=== PATIENT | female | born 1945 | race African-American/Black ===

== ENCOUNTER 2022-03-29 20:53 | Inpatient (IN) | payer OTHER, MEDICAID ==
[2022-03-29 23:04] LABS: ALT (SGPT) 149 U/L (8-55); AST (SGOT) 214 U/L (5-34); Albumin 2.6 g/dL (3.4-4.8); Alkaline Phosphatase 43 U/L (40-110); BUN (Urea Nitrogen) 19 mg/dL (9.8-20.1); Bilirubin, Total 0.6 mg/dL (0.2-1.2); Calc. Creatinine Clearance 0 mL/min (70-130); Calcium 7.9 mg/dL (7.8-10.44); Globulin 3.4 g/dL (2.4-3.5); Glucose 137 mg/dL (83-110); Magnesium 2.1 mg/dL (1.6-2.6)
[2022-03-29 23:07] LABS: Hemoglobin 2.9 g/dL (12.0-15.5); Mean Corpuscular HGB CONC 28.4 g/dL (32.0-36.0); Mean Corpuscular Hemoglobin 24.2 pg (27.0-33.0); Mean Platelet Volume 10.3 fl (7.4-10.4); RBC Distribution Width 23.5 % (11.5-14.5); White Blood Cell (WBC) Count 4.6 10x3/uL (3.5-10.5)
[2022-03-29 23:10] LABS: Chloride 86 mmol/L (98-107); Potassium 1.8 mmol/L (3.5-5.1); Sodium 147 mmol/L (136-145)
[2022-03-29 23:11] LABS: Anion Gap 19 mmol/L (10-20)
[2022-03-29 23:16] LABS: Carbon Dioxide 46 mmol/L (23-31)
[2022-03-29 23:33] LABS: MDiff Complete? YES; Platelet Count 216 10x3/uL (150-450)
[2022-03-29 23:38] LABS: Lymphocytes 12 % (21-51); Monocytes 2 % (0-10); Neutrophil 86 % (42-75)
[2022-03-29 23:39] LABS: Reflex for Review?? YES
[2022-03-29 23:40] LABS: Anisocytosis SLIGHT = 6-15 cells (100X) (0-5/hpf); Hypochromia MODERATE=16-30 cells (100X) (0-5/hpf); Platelet Morphology Comment Appears Adequate; Rouleaux Formation MODERATE= 6-15 cells (100X) (None Seen)
[2022-03-30 00:05] LABS: Iron 16 ug/dL (50-170); Iron Binding Capacity, Total 269 mcg/dL (265-497)
[2022-03-30] MEDS ORDERED: Potassium Chloride 20 MEQ TAB ONE (00:09)
[2022-03-30] MEDS ORDERED: NS 0.9% w/ 40 MEQ KCL 1,000 ML IV ONE (00:09)
[2022-03-30 00:37] LABS: SARS-CoV-2 NAA Rapid Test Not Detected (NotDetected)
[2022-03-30 01:29] LABS: BUN (Urea Nitrogen) 19 mg/dL (9.8-20.1); Calc. Creatinine Clearance 0 mL/min (70-130); Calcium 7.6 mg/dL (7.8-10.44); Glucose 119 mg/dL (83-110); Iron 16 ug/dL (50-170)
[2022-03-30 01:36] LABS: Anion Gap 17 mmol/L (10-20); Chloride 87 mmol/L (98-107); Sodium 148 mmol/L (136-145)
[2022-03-30 01:42] LABS: Carbon Dioxide Greater than 37 mmol/L (23-31); Potassium 1.9 mmol/L (3.5-5.1)
[2022-03-30 02:14] LABS: Troponin I 0.206 ng/mL (< 0.028)
[2022-03-30] MEDS: Potassium Chloride 20 MEQ in Premix Bag 1 BAG IVPB SCH ×3 (03:27→08:38)
[2022-03-30] MEDS: Budesonide 0.5 MG/2 ML NEB NEB SCH ×2 (07:53→18:44)
[2022-03-30 08:30] LABS: ALV-art Gradient -40.435 mmHg (0-20); Actual Bicarbonate (HCO3a) 48.7 mEq/L (22-28); Base Excess (BEa) 23.7 mEq/L (-2.0 to +3.0); CO2 Tension 60.3 mmHg (35.0-45.0); Calcium, Ionized (arterial) 0.95 mmol/L (1.12-1.30); Carboxyhemoglobin (COHb) 1.5 gm% (0.0-3.0); Hemoglobin (Hb) 6.2 g/dL (12.0-16.0); O2 Tension (PaO2), arterial 164.7 mmHg (> 70.0); Potassium - ABG Lab 2.5 mmol/L (3.70-5.30); Puncture Site RRA; pH, Arterial 7.53 (7.35-7.45)
[2022-03-30] MEDS: Pantoprazole 40 MG VIAL IVP SCH (08:37)
[2022-03-30 13:26] LABS: #Monocytes 0.2 10x3/uL (0.0-1.1); #Neutrophils 4.8 10x3/uL (1.5-8.4); %Basophils 0.2 % (0.0-2.0); %Eosinophils 0.3 % (0.0-6.0); %Lymphocytes 16.1 % (18.0-47.0); %Monocytes 3.6 % (0.0-10.0); %Neutrophils 79.3 % (40.0-75.0); Hemoglobin 10.3 g/dL (12.0-15.5); Mean Corpuscular HGB CONC 32.8 g/dL (32.0-36.0); Mean Corpuscular Hemoglobin 28.6 pg (27.0-33.0); Mean Corpuscular Volume 87.2 fl (81.6-98.3); Mean Platelet Volume 10.3 fl (7.4-10.4); Platelet Count 164 10x3/uL (150-450); RBC Distribution Width 16.3 % (11.5-14.5)
[2022-03-30 13:32] LABS: BUN (Urea Nitrogen) 20 mg/dL (9.8-20.1); Calc. Creatinine Clearance 31 mL/min (70-130); Calcium 7.7 mg/dL (7.8-10.44); Carbon Dioxide Greater than 37 mmol/L (23-31); Chloride 91 mmol/L (98-107); Glucose 173 mg/dL (83-110); Potassium 3.1 mmol/L (3.5-5.1); Sodium 143 mmol/L (136-145)
[2022-03-30 13:41] LABS: Anion Gap 20 mmol/L (10-20)
[2022-03-30] MEDS: Thiamine HCl 200 MG/2 ML VIAL IVPB SCH (17:40)
[2022-03-30] MEDS: Bisacodyl 10 MG SUPP PR SCH (17:40)
[2022-03-30] MEDS: Multivitamins, Adult 10 ML, Folic Acid 1 MG in Dextrose 5 %-0.45 % NaCl 1,000 ML IV SCH (17:40)
[2022-03-30] MEDS: Atorvastatin Calcium 10 MG TAB PO SCH (20:16)
[2022-03-30] MEDS: Fleet Enema 133 ML BOT PR SCH (20:16)
[2022-03-31] MEDS: Fleet Enema 133 ML BOT PR SCH ×3 (02:42→16:17)
[2022-03-31] MEDS: Bisacodyl 10 MG SUPP PR SCH ×3 (02:42→16:17)
[2022-03-31 04:50] LABS: #Monocytes 0.2 10x3/uL (0.0-1.1); #Neutrophils 3.7 10x3/uL (1.5-8.4); %Eosinophils 0.6 % (0.0-6.0); %Lymphocytes 21.6 % (18.0-47.0); %Monocytes 4.1 % (0.0-10.0); %Neutrophils 73.1 % (40.0-75.0); Mean Corpuscular HGB CONC 32.1 g/dL (32.0-36.0); Mean Corpuscular Hemoglobin 28.9 pg (27.0-33.0); Mean Platelet Volume 10.3 fl (7.4-10.4); Platelet Count 142 10x3/uL (150-450); RBC Distribution Width 16.7 % (11.5-14.5); Red Blood Cell (RBC) Count 3.11 10x6/uL (3.90-5.03); White Blood Cell (WBC) Count 5.1 10x3/uL (3.5-10.5)
[2022-03-31 05:03] LABS: BUN (Urea Nitrogen) 22 mg/dL (9.8-20.1); Calc. Creatinine Clearance 35 mL/min (70-130); Calcium 7.6 mg/dL (7.8-10.44); Glucose 98 mg/dL (83-110); Magnesium 1.8 mg/dL (1.6-2.6)
[2022-03-31 05:05] LABS: Troponin I 0.084 ng/mL (< 0.028)
[2022-03-31 05:07] LABS: Chloride 92 mmol/L (98-107); Potassium 3.1 mmol/L (3.5-5.1); Sodium 145 mmol/L (136-145)
[2022-03-31 05:10] LABS: Anion Gap 19 mmol/L (10-20); Carbon Dioxide 38 mmol/L (23-31)
[2022-03-31] MEDS ORDERED: Potassium Chloride 20 MEQ TAB PO SCH (06:00)
[2022-03-31] MEDS: Budesonide 0.5 MG/2 ML NEB NEB SCH ×2 (07:28→19:00)
[2022-03-31] MEDS: Pantoprazole 40 MG VIAL IVP SCH (08:48)
[2022-03-31] MEDS: Thiamine HCl 200 MG/2 ML VIAL IVPB SCH (16:19)
[2022-03-31] MEDS ORDERED: Lorazepam 2 MG/ML VIAL SLOW IVP SCH (17:15)
[2022-03-31] MEDS: Multivitamins, Adult 10 ML, Folic Acid 1 MG in Dextrose 5 %-0.45 % NaCl 1,000 ML IV SCH (17:21)
[2022-03-31] MEDS: Atorvastatin Calcium 10 MG TAB PO SCH (21:59)
[2022-04-01] MEDS: Fleet Enema 133 ML BOT PR SCH ×4 (01:00→16:53)
[2022-04-01] MEDS: Bisacodyl 10 MG SUPP PR SCH ×4 (01:00→16:24)
[2022-04-01 06:54] LABS: #Monocytes 0.4 10x3/uL (0.0-1.1); #Neutrophils 5.6 10x3/uL (1.5-8.4); %Basophils 0.3 % (0.0-2.0); %Eosinophils 0.3 % (0.0-6.0); %Lymphocytes 15.1 % (18.0-47.0); %Monocytes 5.7 % (0.0-10.0); %Neutrophils 78.3 % (40.0-75.0); Hemoglobin 11.5 g/dL (12.0-15.5); Mean Corpuscular HGB CONC 31.3 g/dL (32.0-36.0); Mean Corpuscular Hemoglobin 28.7 pg (27.0-33.0); Mean Corpuscular Volume 91.8 fl (81.6-98.3); Mean Platelet Volume 10.5 fl (7.4-10.4); Platelet Count 148 10x3/uL (150-450); RBC Distribution Width 16.7 % (11.5-14.5); Red Blood Cell (RBC) Count 4.01 10x6/uL (3.90-5.03); White Blood Cell (WBC) Count 7.2 10x3/uL (3.5-10.5)
[2022-04-01 07:20] LABS: Anion Gap 19 mmol/L (10-20); BUN (Urea Nitrogen) 18 mg/dL (9.8-20.1); Calc. Creatinine Clearance 51 mL/min (70-130); Calcium 7.9 mg/dL (7.8-10.44); Carbon Dioxide 31 mmol/L (23-31); Chloride 93 mmol/L (98-107); Glucose 77 mg/dL (83-110); Sodium 139 mmol/L (136-145)
[2022-04-01 07:24] LABS: Potassium 4.1 mmol/L (3.5-5.1)
[2022-04-01] MEDS: Budesonide 0.5 MG/2 ML NEB NEB SCH ×2 (07:26→19:17)
[2022-04-01] MEDS: Pantoprazole 40 MG VIAL IVP SCH (08:14)
[2022-04-01] MEDS ORDERED: Mineral Oil ENEMA PR SCH (10:30)
[2022-04-01] MEDS: Thiamine HCl 200 MG/2 ML VIAL IVPB SCH (16:23)
[2022-04-01] MEDS: Atorvastatin Calcium 10 MG TAB PO SCH (20:24)
[2022-04-02] MEDS: Fleet Enema 133 ML BOT PR SCH ×3 (02:31→17:04)
[2022-04-02] MEDS: Bisacodyl 10 MG SUPP PR SCH ×3 (02:31→16:15)
[2022-04-02] MEDS ORDERED: Acetaminophen 325 MG TAB PO SCH (03:00)
[2022-04-02 04:52] LABS: Hemoglobin 10.5 g/dL (12.0-15.5); Mean Corpuscular Hemoglobin 28.9 pg (27.0-33.0); Mean Corpuscular Volume 90.4 fl (81.6-98.3); Mean Platelet Volume 10.3 fl (7.4-10.4); Platelet Count 141 10x3/uL (150-450); Red Blood Cell (RBC) Count 3.63 10x6/uL (3.90-5.03); White Blood Cell (WBC) Count 6.2 10x3/uL (3.5-10.5)
[2022-04-02 05:05] LABS: MDiff Complete? YES
[2022-04-02 05:23] LABS: Lymphocytes 16 % (21-51); Monocytes 5 % (0-10); Neutrophil 79 % (42-75)
[2022-04-02 05:27] LABS: Anisocytosis SLIGHT = 6-15 cells (100X) (0-5/hpf); Platelet Morphology Comment Appears Adequate
[2022-04-02 05:36] LABS: Anion Gap 16 mmol/L (10-20); BUN (Urea Nitrogen) 17 mg/dL (9.8-20.1); Calc. Creatinine Clearance 58 mL/min (70-130); Calcium 8.2 mg/dL (7.8-10.44); Carbon Dioxide 37 mmol/L (23-31); Chloride 93 mmol/L (98-107); Glucose 89 mg/dL (83-110); Sodium 143 mmol/L (136-145)
[2022-04-02] MEDS ORDERED: Potassium Chloride 20 MEQ TAB PO SCH (05:45)
[2022-04-02] MEDS: Budesonide 0.5 MG/2 ML NEB NEB SCH ×2 (06:49→19:00)
[2022-04-02] MEDS: Polyethylene Glycol 3350 17 GM Packet PO SCH (08:14)
[2022-04-02] MEDS: Pantoprazole 40 MG VIAL IVP SCH (08:14)
[2022-04-02] MEDS: Thiamine HCl 200 MG/2 ML VIAL IVPB SCH (16:15)
[2022-04-02] MEDS ORDERED: Lorazepam 2 MG/ML VIAL SLOW IVP SCH (17:30)
[2022-04-02] MEDS: Atorvastatin Calcium 10 MG TAB PO SCH (20:10)
[2022-04-03] MEDS: Bisacodyl 10 MG SUPP PR SCH ×2 (00:34→08:42)
[2022-04-03] MEDS: Fleet Enema 133 ML BOT PR SCH ×2 (00:34→09:15)
[2022-04-03 05:26] LABS: Anion Gap 22 mmol/L (10-20); BUN (Urea Nitrogen) 14 mg/dL (9.8-20.1); Calc. Creatinine Clearance 68 mL/min (70-130); Calcium 8.2 mg/dL (7.8-10.44); Carbon Dioxide 33 mmol/L (23-31); Chloride 94 mmol/L (98-107); Glucose 108 mg/dL (83-110); Potassium 3.8 mmol/L (3.5-5.1); Sodium 145 mmol/L (136-145)
[2022-04-03 05:39] VITALS: BMI 19.5
[2022-04-03 05:43] LABS: Hemoglobin 10.8 g/dL (12.0-15.5); Mean Corpuscular HGB CONC 32.6 g/dL (32.0-36.0); Mean Corpuscular Hemoglobin 28.6 pg (27.0-33.0); Mean Corpuscular Volume 87.8 fl (81.6-98.3); Mean Platelet Volume 10.1 fl (7.4-10.4); Platelet Count 151 10x3/uL (150-450); Red Blood Cell (RBC) Count 3.77 10x6/uL (3.90-5.03); White Blood Cell (WBC) Count 7.6 10x3/uL (3.5-10.5)
[2022-04-03 06:34] LABS: MDiff Complete? YES; Manual Diff?? YES
[2022-04-03 06:39] LABS: Band 4 % (5-11); Lymphocytes 11 % (21-51); Monocytes 7 % (0-10); Neutrophil 77 % (42-75); Reactive Lymphocytes 1 % (0-10)
[2022-04-03 06:41] LABS: Anisocytosis SLIGHT = 6-15 cells (100X) (0-5/hpf); Hypochromia SLIGHT = 6-15 cells (100X) (0-5/hpf); Macrocytosis SLIGHT = 6-15 cells (100X) (0-5/hpf); Microcytosis SLIGHT = 6-15 cells (100X) (0-5/hpf); Polychromasia SLIGHT = 2-3 cells (100X) (0-2/hpf); Target Cells SLIGHT = 2-5 cells (100X) (0-1/hpf)
[2022-04-03] MEDS: Budesonide 0.5 MG/2 ML NEB NEB SCH ×2 (08:38→19:00)
[2022-04-03] MEDS: Pantoprazole 40 MG VIAL IVP SCH (08:43)
[2022-04-03] MEDS: Polyethylene Glycol 3350 17 GM Packet PO SCH (08:43)
[2022-04-03] MEDS: Atorvastatin Calcium 10 MG TAB PO SCH (20:21)
[2022-04-04 05:59] LABS: Hemoglobin 10.8 g/dL (12.0-15.5); Mean Corpuscular HGB CONC 31.6 g/dL (32.0-36.0); Mean Corpuscular Hemoglobin 28.7 pg (27.0-33.0); Mean Platelet Volume 10.2 fl (7.4-10.4); Platelet Count 142 10x3/uL (150-450); RBC Distribution Width 18.4 % (11.5-14.5); Red Blood Cell (RBC) Count 3.76 10x6/uL (3.90-5.03); White Blood Cell (WBC) Count 6.5 10x3/uL (3.5-10.5)
[2022-04-04 06:05] LABS: Anion Gap 18 mmol/L (10-20); BUN (Urea Nitrogen) 11 mg/dL (9.8-20.1); Calc. Creatinine Clearance 69 mL/min (70-130); Calcium 8.4 mg/dL (7.8-10.44); Carbon Dioxide 33 mmol/L (23-31); Chloride 96 mmol/L (98-107); Glucose 99 mg/dL (83-110); Potassium 3.6 mmol/L (3.5-5.1); Sodium 143 mmol/L (136-145)
[2022-04-04 06:12] LABS: MDiff Complete? YES; Manual Diff?? YES
[2022-04-04 06:29] LABS: Anisocytosis SLIGHT = 6-15 cells (100X) (0-5/hpf); Band 2 % (5-11); Lymphocytes 17 % (21-51); Neutrophil 80 % (42-75); Platelet Morphology Comment Appears Adequate; Reactive Lymphocytes 1 % (0-10)
[2022-04-04 06:30] LABS: Hypochromia SLIGHT = 6-15 cells (100X) (0-5/hpf); Macrocytosis SLIGHT = 6-15 cells (100X) (0-5/hpf); Microcytosis SLIGHT = 6-15 cells (100X) (0-5/hpf); Polychromasia SLIGHT = 2-3 cells (100X) (0-2/hpf)
[2022-04-04] MEDS: Budesonide 0.5 MG/2 ML NEB NEB SCH (07:18)
[2022-04-04] MEDS: Polyethylene Glycol 3350 17 GM Packet PO SCH (07:49)
[2022-04-04 11:52] VITALS: TEMP 98.5
[2022-04-04 16:21] VITALS: BP 129/67
== END 2022-04-04 16:53 | DRG 811 ==
LOC: CSHERS 20:53 → CSHIMCU 03-30 02:11 → CSHTELE 04-03 13:14
PROVIDERS: ADMIT Family Medicine; ATTEND Internal Medicine
PROC: 30233N1 Transfusion of Nonautologous Red Blood Cells into Peripheral Vein, Percutaneous Approach (ICD-10-PCS; principal; 2022-03-30)
DX: D50.9 Iron deficiency anemia, unspecified (principal); G93.41 Metabolic encephalopathy; E44.0 Moderate protein-calorie malnutrition; Z68.1 Body mass index [BMI] 19.9 or less, adult; E87.6 Hypokalemia; J44.9 Chronic obstructive pulmonary disease, unspecified; F17.200 Nicotine dependence, unspecified, uncomplicated; I10 Essential (primary) hypertension; F03.90 Unspecified dementia, unspecified severity, without behavioral disturbance, psychotic disturbance, mood disturbance, and anxiety; E78.5 Hyperlipidemia, unspecified; B88.8 Other specified infestations; R74.8 Abnormal levels of other serum enzymes; K56.41 Fecal impaction; E86.0 Dehydration; Z88.5 Allergy status to narcotic agent; Z79.899 Other long term (current) drug therapy
CPT/HCPCS: 36415; 36416; 36430; 36600; 71045; 74018; 76705; 80048; 80053; 82140; 82274; 82550; 82553; 82607; 82728; 82746; 82805; 83540; 83550; 83735; 83880; 84443; 84484; 85025; 85060; 86850; 86900; 86901; 93005; C9113; J2060; J3411; J3480; J7042; J7620; J7626; P9016; U0002

== ENCOUNTER 2022-04-22 18:21 | Emergency (ER) | payer OTHER, MEDICAID ==
[2022-04-22] MEDS ORDERED: niCARdipine 25 MG/10 ML VIAL ONE (19:22)
[2022-04-22 20:10] LABS: Hemoglobin 11.5 g/dL (12.0-15.5); Mean Corpuscular HGB CONC 29.9 g/dL (32.0-36.0); Mean Corpuscular Hemoglobin 29.3 pg (27.0-33.0); Mean Corpuscular Volume 98.2 fl (81.6-98.3); Mean Platelet Volume 9.1 fl (7.4-10.4); Platelet Count 319 10x3/uL (150-450); RBC Distribution Width 19.5 % (11.5-14.5); Red Blood Cell (RBC) Count 3.92 10x6/uL (3.90-5.03); White Blood Cell (WBC) Count 5.9 10x3/uL (3.5-10.5)
[2022-04-22 20:18] LABS: ALT (SGPT) 23 U/L (8-55); AST (SGOT) 25 U/L (5-34); Albumin 3.6 g/dL (3.4-4.8); Alkaline Phosphatase 67 U/L (40-110); Anion Gap 17 mmol/L (10-20); BUN (Urea Nitrogen) 14 mg/dL (9.8-20.1); Bilirubin, Total 0.5 mg/dL (0.2-1.2); Calc. Creatinine Clearance 0 mL/min (70-130); Calcium 9.6 mg/dL (7.8-10.44); Carbon Dioxide 35 mmol/L (23-31); Chloride 92 mmol/L (98-107); Globulin 5.9 g/dL (2.4-3.5); Glucose 136 mg/dL (83-110); Potassium 3.8 mmol/L (3.5-5.1); Protein, Total 9.5 g/dL (5.8-8.1); Sodium 140 mmol/L (136-145)
[2022-04-22 20:26] LABS: SARS-CoV-2 NAA Rapid Test Not Detected (NotDetected)
[2022-04-22 20:29] LABS: MDiff Complete? YES
[2022-04-22 20:29] LABS: Bilirubin Neg (Negative); Blood, Urine 50 (Negative); Clarity Clear (Clear); Glucose, Urine (Dipstick) 100 mg/dL (Negative); Ketone, Urine Negative (Negative); Leukocyte Negative (Negative); Nitrite Negative (Negative); Protein, Urine (Dipstick) 500 mg/dl (Neg-Trace); Specific Gravity, Urine 1.015 (1.002-1.036); Urobilinogen Normal mg/dL (Less than 2)
[2022-04-22 20:34] LABS: Band 37 % (5-11); Lymphocytes 8 % (21-51); Metamyelocyte 2 % (0-0); Monocytes 10 % (0-10); Neutrophil 43 % (42-75)
[2022-04-22 20:35] LABS: Hypochromia SLIGHT = 6-15 cells (100X) (0-5/hpf); Large Platelets SLIGHT; Platelet Morphology Comment Appears Adequate; Vacuoles SLIGHT
[2022-04-22 20:45] LABS: Bacteria/HPF 2+ HPF (None Seen); Mucous/LPF 1+ LPF (<2+); RBC/HPF 0-3 HPF (0-3); Squamous Epithelial 0-3 HPF (0-3); WBC/HPF 0-3 HPF (0-3)
[2022-04-22 21:01] LABS: Base Excess (BEa) 7.8 mEq/L (-2.0 to +3.0); CO2 Tension 115.2 mmHg (35.0-45.0); Calcium, Ionized (arterial) 1.21 mmol/L (1.12-1.30); Carboxyhemoglobin (COHb) 1.2 gm% (0.0-3.0); Critical Notified By: CP.PH; Hemoglobin (Hb) 11.7 g/dL (12.0-16.0); O2 Tension (PaO2), arterial 173.1 mmHg (> 70.0); Potassium - ABG Lab 3.7 mmol/L (3.70-5.30); Puncture Site RRA; RapidComm Collect By CP.PH; pH, Arterial 7.16 (7.35-7.45)
[2022-04-22] MEDS ORDERED: Lorazepam 2 MG/ML VIAL ONE (23:18)
== END 2022-04-22 23:41 ==
LOC: CSHERS 18:21
DX: R09.02 Hypoxemia (principal); I10 Essential (primary) hypertension; R06.89 Other abnormalities of breathing; R41.82 Altered mental status, unspecified; Z20.822 Contact with and (suspected) exposure to COVID-19; Z79.899 Other long term (current) drug therapy
CPT/HCPCS: 36600; 51701; 70450; 71045; 80053; 82805; 82962; 83605; 83880; 84484; 85025; 86850; 86900; 86901; 87040; 87086; 93005; 96365; 96366; 96375; 99285; U0002; 36415; 36416; 81003; 81015; J2060

== ENCOUNTER 2022-06-16 15:48 | Inpatient (IN) | payer OTHER, MEDICAID ==
[~2022-06-16 15:48] MED LIST: Rocuronium Bromide 10 MG/ML (10ML VIAL) ONE
[2022-06-16] MEDS ORDERED: Cefepime 1 GM VIAL ONE (16:11)
[2022-06-16] MEDS ORDERED: Ondansetron PF 4 MG/2 ML Vial ONE (16:11)
[2022-06-16 16:23] LABS: Actual Bicarbonate (HCO3a) 35.6 mEq/L (22-28); Base Excess (BEa) 3.6 mEq/L (-2.0 to +3.0); CO2 Tension 112.1 mmHg (35.0-45.0); Calcium, Ionized (arterial) 1.16 mmol/L (1.12-1.30); Carboxyhemoglobin (COHb) 0.3 gm% (0.0-3.0); Hemoglobin (Hb) 10.9 g/dL (12.0-16.0); O2 Tension (PaO2), arterial 135.2 mmHg (> 70.0); Potassium - ABG Lab 2.7 mmol/L (3.70-5.30); Puncture Site LRA; pH, Arterial 7.12 (7.35-7.45)
[2022-06-16 16:27] LABS: ALV-art Gradient 295.075 mmHg (0-20)
[2022-06-16] MEDS ORDERED: Propofol 1,000 MG/100 ML VIAL IV ONE (16:33)
[2022-06-16] MEDS ORDERED: Midazolam HCl 2 mg/2 ml Vial ONE (16:34)
[2022-06-16 16:37] LABS: ALT (SGPT) 7 U/L (8-55); AST (SGOT) 15 U/L (5-34); Albumin 3.2 g/dL (3.4-4.8); Alkaline Phosphatase 60 U/L (40-110); Anion Gap 19 mmol/L (10-20); BUN (Urea Nitrogen) 11 mg/dL (9.8-20.1); Bilirubin, Total 0.5 mg/dL (0.2-1.2); Calc. Creatinine Clearance 0 mL/min (70-130); Calcium 9.6 mg/dL (7.8-10.44); Carbon Dioxide 35 mmol/L (23-31); Chloride 95 mmol/L (98-107); Estimated GFR 86; Globulin 5.1 g/dL (2.4-3.5); Glucose 199 mg/dL (83-110); Protein, Total 8.3 g/dL (5.8-8.1); Sodium 146 mmol/L (136-145)
[2022-06-16 16:42] LABS: Lipase Less than 4 U/L (8-78); Potassium 2.9 mmol/L (3.5-5.1)
[2022-06-16 16:46] LABS: MDiff Complete? YES; Mean Corpuscular HGB CONC 30.2 g/dL (32.0-36.0); Mean Corpuscular Hemoglobin 31.5 pg (27.0-33.0); Mean Corpuscular Volume 104.3 fl (81.6-98.3); Mean Platelet Volume 10.1 fl (7.4-10.4); Platelet Count 329 10x3/uL (150-450); RBC Distribution Width 15.2 % (11.5-14.5); Red Blood Cell (RBC) Count 3.49 10x6/uL (3.90-5.03); White Blood Cell (WBC) Count 8.9 10x3/uL (3.5-10.5)
[2022-06-16] MEDS ORDERED: Norepinephrine 8 MG/0.9% NS 0 ML ONE (16:46)
[2022-06-16 16:49] LABS: Band 68 % (5-11); Lymphocytes 13 % (21-51); Monocytes 5 % (0-10); Neutrophil 11 % (42-75); Reactive Lymphocytes 3 % (0-10)
[2022-06-16 16:51] LABS: Toxic Granulation MODERATE; Vacuoles MODERATE
[2022-06-16 16:58] LABS: Anisocytosis SLIGHT = 6-15 cells (100X) (0-5/hpf); Basophilic Stippling SLIGHT = 1-2 cells (100X) (None Seen); Macrocytosis SLIGHT = 6-15 cells (100X) (0-5/hpf)
[2022-06-16 16:59] LABS: Platelet Morphology Comment Appears Adequate
[2022-06-16 17:00] LABS: Reflex for Review?? YES
[2022-06-16 17:24] LABS: SARS-CoV-2 NAA Rapid Test DETECTED (NotDetected)
[2022-06-16] MEDS ORDERED: Potassium Chloride 20 MEQ/100 ML PREMIX BAG ONE (17:42)
[2022-06-16 17:57] LABS: Bilirubin Neg (Negative); Blood, Urine 50 (Negative); Clarity Clear (Clear); Glucose, Urine (Dipstick) 50 mg/dL (Negative); Ketone, Urine Negative (Negative); Leukocyte Negative (Negative); Nitrite Negative (Negative); Protein, Urine (Dipstick) 500 mg/dl (Neg-Trace); Specific Gravity, Urine 1.015 (1.002-1.036); Urobilinogen Normal mg/dL (Less than 2)
[2022-06-16] MEDS ORDERED: Bisacodyl 5 MG TAB PO PRN (18:02)
[2022-06-16] MEDS ORDERED: HYDROcodone/Acetaminophen 5/325 mg Tablet PO PRN (18:02)
[2022-06-16] MEDS ORDERED: Ondansetron PF 4 MG/2 ML Vial IVP PRN (18:02)
[2022-06-16] MEDS ORDERED: Sodium Chloride 0.9% 1,000 ML IV SCH (18:15)
[2022-06-16 18:20] LABS: Squamous Epithelial None Seen HPF (0-3); Transitional Epithelial 0-3 HPF (None Seen); WBC/HPF 0-3 HPF (0-3)
[2022-06-16 18:21] LABS: Bacteria/HPF 1+ HPF (None Seen); Calcium Oxalate Crystals Rare HPF (None Seen)
[2022-06-16] MEDS ORDERED: NOREPINEPHRINE 8 MG/250 ML-D5W 250 ML IVPB PRN (18:28)
[2022-06-16] MEDS ORDERED: fentaNYL Citrate-0.9 % NaCl/PF 100 ML IVPB ONE (18:28)
[2022-06-16] MEDS ORDERED: Furosemide 40 MG/4 ML VIAL SLOW IVP SCH (18:30)
[2022-06-16] MEDS ORDERED: Magnesium 2 GM/50 ML(in water) 2 GM in Premix Bag 1 BAG IVPB SCH (18:30)
[2022-06-16] MEDS ORDERED: Electrolyte Replacement Protocol FS PRN (18:30)
[2022-06-16] MEDS ORDERED: Ventilator Sedation Protocol 1 EACH FS PRN (18:30)
[2022-06-16] MEDS ORDERED: Lorazepam 2 MG/ML VIAL SLOW IVP PRN (18:45)
[2022-06-16] MEDS ORDERED: Morphine 2 MG/ML VIAL SLOW IVP PRN (18:45)
[2022-06-16] MEDS ORDERED: Fentanyl BOLUS 250 ML IVPB PRN (18:45)
[2022-06-16] MEDS ORDERED: DISCONTINUE PREVIOUS NARCOTIC PAIN MEDICATIONS AND BENZODIAZEPINES FS SCH (18:45)
[2022-06-16] MEDS ORDERED: Propofol BOLUS 1,000 MG/100 ML VIAL IV PRN (18:45)
[2022-06-16] MEDS ORDERED: Magnesium 2 GM/50 ML BAG (IN WATER) ONE (19:23)
[2022-06-16 20:09] LABS: Lactic Acid 2.9 mmol/L (0.5-2.2)
[2022-06-16] MEDS: Famotidine/PF 20 mg/2ml Vial SLOW IVP SCH (20:42)
[2022-06-16] MEDS ORDERED: Vancomycin 1 GM in Premix Bag 1 BAG IVPB SCH (21:00)
[2022-06-16 21:30] LABS: Actual Bicarbonate (HCO3a) 28.6 mEq/L (22-28); Base Excess (BEa) 4.9 mEq/L (-2.0 to +3.0); CO2 Tension 38.6 mmHg (35.0-45.0); Calcium, Ionized (arterial) 1.16 mmol/L (1.12-1.30); Carboxyhemoglobin (COHb) 0.3 gm% (0.0-3.0); Hemoglobin (Hb) 10.2 g/dL (12.0-16.0); O2 Tension (PaO2), arterial 63.1 mmHg (> 70.0); Potassium - ABG Lab 3.9 mmol/L (3.70-5.30); Puncture Site RRA; pH, Arterial 7.49 (7.35-7.45)
[2022-06-16] MEDS: Norepinephrine 8 MG/0.9% NS 250 ML ONE (21:30)
[2022-06-16] MEDS: Hydrocortisone Sod Succ/PF 100 mg/2 ml Vial IVP SCH (21:48)
[2022-06-16 22:39] LABS: Anion Gap 18 mmol/L (10-20); BUN (Urea Nitrogen) 14 mg/dL (9.8-20.1); Calc. Creatinine Clearance 40 mL/min (70-130); Carbon Dioxide 30 mmol/L (23-31); Chloride 100 mmol/L (98-107); Estimated GFR 91; Glucose 120 mg/dL (83-110); Magnesium 2.6 mg/dL (1.6-2.6); Potassium 3.8 mmol/L (3.5-5.1); Sodium 144 mmol/L (136-145)
[2022-06-16] MEDS ORDERED: Albumin 25% 25 GM/100 ML BOT IVPB SCH (23:30)
[2022-06-16] MEDS: Acetaminophen 325 MG TAB PO PRN (23:35)
[2022-06-17] MEDS ORDERED: NOREPINEPHRINE 8 MG/250 ML ONE (01:05)
[2022-06-17] MEDS ORDERED: DEXTROSE ONE (01:05)
[2022-06-17 04:03] LABS: Actual Bicarbonate (HCO3a) 31.1 mEq/L (22-28); Base Excess (BEa) 8.2 mEq/L (-2.0 to +3.0); CO2 Tension 36.1 mmHg (35.0-45.0); Calcium, Ionized (arterial) 1.12 mmol/L (1.12-1.30); Carboxyhemoglobin (COHb) 0.3 gm% (0.0-3.0); Hemoglobin (Hb) 8.4 g/dL (12.0-16.0); O2 Tension (PaO2), arterial 140.5 mmHg (> 70.0); Potassium - ABG Lab 2.9 mmol/L (3.70-5.30); Puncture Site RRA; pH, Arterial 7.55 (7.35-7.45)
[2022-06-17 04:06] LABS: ALV-art Gradient 170.875 mmHg (0-20)
[2022-06-17 04:22] LABS: Lactic Acid 1.7 mmol/L (0.5-2.2)
[2022-06-17 04:27] LABS: Anion Gap 15 mmol/L (10-20); BUN (Urea Nitrogen) 18 mg/dL (9.8-20.1); Calc. Creatinine Clearance 32 mL/min (70-130); Calcium 9.4 mg/dL (7.8-10.44); Carbon Dioxide 35 mmol/L (23-31); Chloride 99 mmol/L (98-107); Estimated GFR 76; Glucose 133 mg/dL (83-110); Magnesium 2.2 mg/dL (1.6-2.6); Sodium 146 mmol/L (136-145)
[2022-06-17] MEDS: Cefepime 1 GM in Sodium Chloride 0.9% 100 ML IVPB SCH ×2 (04:32→16:41)
[2022-06-17] MEDS ORDERED: Potassium Phosphate 22 MMOL in Sodium Chloride 0.9% 250 ML 250 ML IVPB SCH (05:00)
[2022-06-17] MEDS: Hydrocortisone Sod Succ/PF 100 mg/2 ml Vial IVP SCH ×3 (05:24→22:20)
[2022-06-17] MEDS ORDERED: Albumin 25% 25 GM/100 ML BOT IVPB SCH (05:30)
[2022-06-17] MEDS ORDERED: Furosemide 40 MG/4 ML VIAL SLOW IVP SCH ×2 (05:30→09:00)
[2022-06-17] MEDS: Propofol 1,000 MG/100 ML VIAL IV PRN ×2 (05:48→18:33)
[2022-06-17] MEDS ORDERED: Sodium Bicarb 50 MEQ/50 ML Abboject 8.4% SYRINGE IVP ONE (06:19)
[2022-06-17 06:31] LABS: Hemoglobin 8.1 g/dL (12.0-15.5); Mean Corpuscular HGB CONC 31.4 g/dL (32.0-36.0); Mean Corpuscular Hemoglobin 31.5 pg (27.0-33.0); Mean Corpuscular Volume 100.4 fl (81.6-98.3); Mean Platelet Volume 10.2 fl (7.4-10.4); Platelet Count 253 10x3/uL (150-450); RBC Distribution Width 15.2 % (11.5-14.5); Red Blood Cell (RBC) Count 2.57 10x6/uL (3.90-5.03); White Blood Cell (WBC) Count 9.4 10x3/uL (3.5-10.5)
[2022-06-17 06:32] LABS: MDiff Complete? YES
[2022-06-17 07:02] LABS: Band 35 % (5-11); Lymphocytes 5 % (21-51); Metamyelocyte 32 % (0-0); Monocytes 5 % (0-10); Myelocyte 1 % (0-0); Neutrophil 22 % (42-75)
[2022-06-17 07:04] LABS: Hypochromia MODERATE=16-30 cells (100X) (0-5/hpf); Schistocytes SLIGHT = 2-5 cells (100X) (0-1/hpf)
[2022-06-17 07:05] LABS: Platelet Morphology Comment Appears Adequate
[2022-06-17] MEDS: Enoxaparin Sodium 30 MG/0.3 ML SYRINGE SC SCH (08:09)
[2022-06-17] MEDS: Sodium Chloride 0.9% 1,000 ML IV SCH (11:18)
[2022-06-17] MEDS: fentaNYL Citrate-0.9 % NaCl/PF 100 ML IVPB SCH (17:10)
[2022-06-17] MEDS: Vancomycin HCl 500 MG in Sodium Chloride 0.9% 100 ML IVPB SCH (17:49)
[2022-06-17] MEDS: Famotidine/PF 20 mg/2ml Vial SLOW IVP SCH (20:20)
[2022-06-18] MEDS: Propofol 1,000 MG/100 ML VIAL IV PRN (02:58)
[2022-06-18] MEDS: Hydrocortisone Sod Succ/PF 100 mg/2 ml Vial IVP SCH ×3 (05:34→22:38)
[2022-06-18] MEDS: Cefepime 1 GM in Sodium Chloride 0.9% 100 ML IVPB SCH ×2 (05:34→16:48)
[2022-06-18] MEDS: Enoxaparin Sodium 30 MG/0.3 ML SYRINGE SC SCH (08:13)
[2022-06-18 08:14] LABS: Hemoglobin 6.8 g/dL (12.0-15.5); MDiff Complete? YES; Mean Corpuscular HGB CONC 31.2 g/dL (32.0-36.0); Mean Corpuscular Hemoglobin 32.1 pg (27.0-33.0); Mean Corpuscular Volume 102.8 fl (81.6-98.3); Mean Platelet Volume 10.5 fl (7.4-10.4); Platelet Count 234 10x3/uL (150-450); RBC Distribution Width 16.5 % (11.5-14.5); Red Blood Cell (RBC) Count 2.12 10x6/uL (3.90-5.03); White Blood Cell (WBC) Count 11.5 10x3/uL (3.5-10.5)
[2022-06-18 08:43] LABS: ALT (SGPT) 10 U/L (8-55); AST (SGOT) 16 U/L (5-34); Albumin 2.5 g/dL (3.4-4.8); Alkaline Phosphatase 52 U/L (40-110); Anion Gap 15 mmol/L (10-20); BUN (Urea Nitrogen) 28 mg/dL (9.8-20.1); Bilirubin, Total 0.6 mg/dL (0.2-1.2); Calc. Creatinine Clearance 40 mL/min (70-130); Calcium 7.2 mg/dL (7.8-10.44); Carbon Dioxide 24 mmol/L (23-31); Chloride 112 mmol/L (98-107); Estimated GFR 89; Globulin 2.8 g/dL (2.4-3.5); Glucose 150 mg/dL (83-110); Potassium 2.8 mmol/L (3.5-5.1); Protein, Total 5.3 g/dL (5.8-8.1); Sodium 148 mmol/L (136-145)
[2022-06-18 08:44] LABS: Band 3 % (5-11); Lymphocytes 6 % (21-51); Metamyelocyte 1 % (0-0); Monocytes 3 % (0-10); Myelocyte 2 % (0-0); Neutrophil 84 % (42-75); Reactive Lymphocytes 1 % (0-10)
[2022-06-18 08:45] LABS: Anisocytosis SLIGHT = 6-15 cells (100X) (0-5/hpf); Hypochromia SLIGHT = 6-15 cells (100X) (0-5/hpf); Macrocytosis SLIGHT = 6-15 cells (100X) (0-5/hpf); Platelet Morphology Comment Appears Adequate; Toxic Granulation SLIGHT
[2022-06-18] MEDS ORDERED: Potassium Chloride 20 MEQ in Premix Bag 1 BAG IVPB SCH (09:00)
[2022-06-18] MEDS: Potassium Chloride 40 MEQ in Premix Bag 1 BAG IVPB SCH ×2 (10:21→14:09)
[2022-06-18] MEDS: Sodium Chloride 0.9% 1,000 ML IV SCH ×3 (10:56→22:38)
[2022-06-18] MEDS ORDERED: Ascorbic Acid 500 mg Chewable Tablet PER TUBE SCH (12:30)
[2022-06-18] MEDS ORDERED: Iopamidol 370 76% 100 ML VIAL ONE (12:41)
[2022-06-18 16:56] LABS: Hemoglobin 9.1 g/dL (12.0-15.5)
[2022-06-18] MEDS: Vancomycin HCl 500 MG in Sodium Chloride 0.9% 100 ML IVPB SCH (18:52)
[2022-06-18 19:30] LABS: Vancomycin, Trough 9.5 ug/mL
[2022-06-18] MEDS ORDERED: Vancomycin HCl 750 MG in Sodium Chloride 0.9% 250 ML 250 ML IVPB SCH (20:30)
[2022-06-18] MEDS: Famotidine/PF 20 mg/2ml Vial SLOW IVP SCH (20:50)
[2022-06-19] MEDS: Propofol 1,000 MG/100 ML VIAL IV PRN ×4 (00:12→23:30)
[2022-06-19 05:24] LABS: Hemoglobin 8.9 g/dL (12.0-15.5); MDiff Complete? YES; Mean Corpuscular HGB CONC 31.8 g/dL (32.0-36.0); Mean Corpuscular Hemoglobin 31.8 pg (27.0-33.0); Mean Platelet Volume 10.4 fl (7.4-10.4); Platelet Count 188 10x3/uL (150-450); White Blood Cell (WBC) Count 7.8 10x3/uL (3.5-10.5)
[2022-06-19 05:26] LABS: ALT (SGPT) 23 U/L (8-55); AST (SGOT) 27 U/L (5-34); Albumin 2.6 g/dL (3.4-4.8); Alkaline Phosphatase 57 U/L (40-110); Anion Gap 12 mmol/L (10-20); BUN (Urea Nitrogen) 36 mg/dL (9.8-20.1); Bilirubin, Total 0.6 mg/dL (0.2-1.2); Calc. Creatinine Clearance 40 mL/min (70-130); Calcium 8.1 mg/dL (7.8-10.44); Carbon Dioxide 24 mmol/L (23-31); Chloride 114 mmol/L (98-107); Estimated GFR 89; Globulin 3.5 g/dL (2.4-3.5); Glucose 154 mg/dL (83-110); Potassium 4.5 mmol/L (3.5-5.1); Protein, Total 6.1 g/dL (5.8-8.1); Sodium 145 mmol/L (136-145)
[2022-06-19] MEDS: Hydrocortisone Sod Succ/PF 100 mg/2 ml Vial IVP SCH ×3 (05:35→21:47)
[2022-06-19] MEDS: Cefepime 1 GM in Sodium Chloride 0.9% 100 ML IVPB SCH ×2 (05:35→17:28)
[2022-06-19 06:23] LABS: Eosinophils 1 % (0-10); Lymphocytes 4 % (21-51); Monocytes 3 % (0-10); Neutrophil 91 % (42-75); Reactive Lymphocytes 1 % (0-10)
[2022-06-19 06:27] LABS: Hypochromia SLIGHT = 6-15 cells (100X) (0-5/hpf); Macrocytosis SLIGHT = 6-15 cells (100X) (0-5/hpf); Platelet Morphology Comment Appears Adequate
[2022-06-19] MEDS: fentaNYL Citrate-0.9 % NaCl/PF 100 ML IVPB SCH (06:33)
[2022-06-19] MEDS: Sodium Chloride 0.9% 1,000 ML IV SCH ×2 (08:19→17:31)
[2022-06-19] MEDS: Ascorbic Acid 500 mg Chewable Tablet PER TUBE SCH (08:19)
[2022-06-19] MEDS: Zinc Sulfate 220 MG CAP PER TUBE SCH (08:19)
[2022-06-19] MEDS: Vancomycin HCl 750 MG in Sodium Chloride 0.9% 250 ML 250 ML IVPB SCH ×2 (17:28→17:30)
[2022-06-19] MEDS: Norepinephrine 8 MG/0.9% NS 250 ML ONE (19:53)
[2022-06-19] MEDS: Famotidine/PF 20 mg/2ml Vial SLOW IVP SCH (21:48)
[2022-06-20 04:08] LABS: Hemoglobin 8.9 g/dL (12.0-15.5); Mean Corpuscular HGB CONC 31.1 g/dL (32.0-36.0); Mean Corpuscular Hemoglobin 31.8 pg (27.0-33.0); Mean Corpuscular Volume 102.1 fl (81.6-98.3); Platelet Count 164 10x3/uL (150-450); RBC Distribution Width 17.8 % (11.5-14.5); White Blood Cell (WBC) Count 7.5 10x3/uL (3.5-10.5)
[2022-06-20 04:21] LABS: ALT (SGPT) 20 U/L (8-55); AST (SGOT) 13 U/L (5-34); Albumin 2.4 g/dL (3.4-4.8); Alkaline Phosphatase 50 U/L (40-110); Anion Gap 14 mmol/L (10-20); BUN (Urea Nitrogen) 32 mg/dL (9.8-20.1); Bilirubin, Total 0.4 mg/dL (0.2-1.2); Calc. Creatinine Clearance 46 mL/min (70-130); Carbon Dioxide 22 mmol/L (23-31); Chloride 115 mmol/L (98-107); Estimated GFR 91; Globulin 3.5 g/dL (2.4-3.5); Glucose 145 mg/dL (83-110); Potassium 4.7 mmol/L (3.5-5.1); Protein, Total 5.9 g/dL (5.8-8.1); Sodium 146 mmol/L (136-145)
[2022-06-20] MEDS: Cefepime 1 GM in Sodium Chloride 0.9% 100 ML IVPB SCH ×2 (05:51→16:31)
[2022-06-20] MEDS: Hydrocortisone Sod Succ/PF 100 mg/2 ml Vial IVP SCH ×3 (05:51→20:36)
[2022-06-20] MEDS: Sodium Chloride 0.9% 1,000 ML IV SCH ×2 (05:52→20:22)
[2022-06-20 06:08] LABS: MDiff Complete? YES
[2022-06-20 06:37] LABS: Nucleated RBC 2 % (0)
[2022-06-20 06:45] LABS: Lymphocytes 7 % (21-51); Monocytes 10 % (0-10); Neutrophil 83 % (42-75)
[2022-06-20 06:46] LABS: Hypochromia SLIGHT = 6-15 cells (100X) (0-5/hpf); Microcytosis SLIGHT = 6-15 cells (100X) (0-5/hpf); Platelet Morphology Comment Appears Adequate
[2022-06-20] MEDS: Zinc Sulfate 220 MG CAP PER TUBE SCH (08:07)
[2022-06-20] MEDS: Ascorbic Acid 500 mg Chewable Tablet PER TUBE SCH (08:07)
[2022-06-20] MEDS: Propofol 1,000 MG/100 ML VIAL IV PRN ×2 (08:07→16:57)
[2022-06-20] MEDS: Famotidine/PF 20 mg/2ml Vial SLOW IVP SCH (20:36)
[2022-06-20] MEDS: fentaNYL Citrate-0.9 % NaCl/PF 100 ML IVPB SCH (23:14)
[2022-06-21] MEDS: Propofol 1,000 MG/100 ML VIAL IV PRN ×3 (00:52→19:30)
[2022-06-21 04:45] LABS: Hemoglobin 9.4 g/dL (12.0-15.5); Mean Corpuscular Hemoglobin 30.8 pg (27.0-33.0); Mean Corpuscular Volume 102.6 fl (81.6-98.3); Mean Platelet Volume 10.6 fl (7.4-10.4); Platelet Count 178 10x3/uL (150-450); Red Blood Cell (RBC) Count 3.05 10x6/uL (3.90-5.03); White Blood Cell (WBC) Count 6.9 10x3/uL (3.5-10.5)
[2022-06-21 04:55] LABS: ALT (SGPT) 15 U/L (8-55); AST (SGOT) 9 U/L (5-34); Albumin 2.4 g/dL (3.4-4.8); Alkaline Phosphatase 52 U/L (40-110); Anion Gap 12 mmol/L (10-20); BUN (Urea Nitrogen) 29 mg/dL (9.8-20.1); Bilirubin, Total 0.4 mg/dL (0.2-1.2); Calc. Creatinine Clearance 53 mL/min (70-130); Calcium 8.3 mg/dL (7.8-10.44); Carbon Dioxide 22 mmol/L (23-31); Chloride 116 mmol/L (98-107); Estimated GFR 92; Globulin 3.6 g/dL (2.4-3.5); Glucose 141 mg/dL (83-110); Potassium 4.5 mmol/L (3.5-5.1); Sodium 145 mmol/L (136-145)
[2022-06-21 06:24] LABS: MDiff Complete? YES
[2022-06-21 06:27] LABS: Band 1 % (5-11); Lymphocytes 14 % (21-51); Monocytes 12 % (0-10); Neutrophil 73 % (42-75)
[2022-06-21 06:28] LABS: Hypochromia SLIGHT = 6-15 cells (100X) (0-5/hpf); Macrocytosis SLIGHT = 6-15 cells (100X) (0-5/hpf); Platelet Morphology Comment Appears Adequate
[2022-06-21] MEDS: Hydrocortisone Sod Succ/PF 100 mg/2 ml Vial IVP SCH ×3 (06:38→21:28)
[2022-06-21] MEDS: Cefepime 1 GM in Sodium Chloride 0.9% 100 ML IVPB SCH ×2 (06:38→17:12)
[2022-06-21] MEDS: Zinc Sulfate 220 MG CAP PER TUBE SCH (08:42)
[2022-06-21] MEDS: Famotidine/PF 20 mg/2ml Vial SLOW IVP SCH ×2 (08:42→21:28)
[2022-06-21] MEDS: Ascorbic Acid 500 mg Chewable Tablet PER TUBE SCH (08:42)
[2022-06-22] MEDS: fentaNYL Citrate-0.9 % NaCl/PF 100 ML IVPB SCH (03:28)
[2022-06-22 04:37] LABS: Hemoglobin 9.3 g/dL (12.0-15.5); Mean Corpuscular HGB CONC 31.1 g/dL (32.0-36.0); Mean Corpuscular Hemoglobin 31.2 pg (27.0-33.0); Mean Corpuscular Volume 100.3 fl (81.6-98.3); Mean Platelet Volume 10.4 fl (7.4-10.4); Platelet Count 169 10x3/uL (150-450); RBC Distribution Width 16.7 % (11.5-14.5); Red Blood Cell (RBC) Count 2.98 10x6/uL (3.90-5.03); White Blood Cell (WBC) Count 6.3 10x3/uL (3.5-10.5)
[2022-06-22 04:42] LABS: ALT (SGPT) 14 U/L (8-55); AST (SGOT) 9 U/L (5-34); Albumin 2.3 g/dL (3.4-4.8); Alkaline Phosphatase 46 U/L (40-110); Anion Gap 13 mmol/L (10-20); BUN (Urea Nitrogen) 28 mg/dL (9.8-20.1); Bilirubin, Total 0.3 mg/dL (0.2-1.2); Calc. Creatinine Clearance 57 mL/min (70-130); Calcium 8.4 mg/dL (7.8-10.44); Carbon Dioxide 22 mmol/L (23-31); Chloride 116 mmol/L (98-107); Estimated GFR 93; Globulin 3.5 g/dL (2.4-3.5); Glucose 118 mg/dL (83-110); Protein, Total 5.8 g/dL (5.8-8.1); Sodium 147 mmol/L (136-145)
[2022-06-22 05:11] LABS: Hypochromia SLIGHT = 6-15 cells (100X) (0-5/hpf); Microcytosis SLIGHT = 6-15 cells (100X) (0-5/hpf); Platelet Morphology Comment Appears Adequate
[2022-06-22 05:14] LABS: Band 1 % (5-11); Lymphocytes 14 % (21-51); Monocytes 10 % (0-10)
[2022-06-22 05:22] LABS: MDiff Complete? YES; Neutrophil 75 % (42-75)
[2022-06-22] MEDS: Cefepime 1 GM in Sodium Chloride 0.9% 100 ML IVPB SCH ×2 (06:08→17:45)
[2022-06-22] MEDS: Hydrocortisone Sod Succ/PF 100 mg/2 ml Vial IVP SCH ×3 (06:08→21:28)
[2022-06-22] MEDS: Famotidine/PF 20 mg/2ml Vial SLOW IVP SCH ×2 (07:41→20:35)
[2022-06-22] MEDS: Ascorbic Acid 500 mg Chewable Tablet PER TUBE SCH (07:41)
[2022-06-22] MEDS: Zinc Sulfate 220 MG CAP PER TUBE SCH (07:41)
[2022-06-22] MEDS: Propofol 1,000 MG/100 ML VIAL IV PRN ×2 (13:49→21:28)
[2022-06-23] MEDS: Cefepime 1 GM in Sodium Chloride 0.9% 100 ML IVPB SCH ×2 (04:56→16:26)
[2022-06-23] MEDS: fentaNYL Citrate-0.9 % NaCl/PF 100 ML IVPB SCH (05:18)
[2022-06-23] MEDS: Hydrocortisone Sod Succ/PF 100 mg/2 ml Vial IVP SCH ×3 (05:21→21:07)
[2022-06-23 05:31] LABS: ALT (SGPT) 17 U/L (8-55); AST (SGOT) 11 U/L (5-34); Albumin 2.3 g/dL (3.4-4.8); Alkaline Phosphatase 40 U/L (40-110); Anion Gap 11 mmol/L (10-20); BUN (Urea Nitrogen) 32 mg/dL (9.8-20.1); Bilirubin, Total 0.2 mg/dL (0.2-1.2); Calc. Creatinine Clearance 56 mL/min (70-130); Calcium 8.5 mg/dL (7.8-10.44); Carbon Dioxide 23 mmol/L (23-31); Chloride 115 mmol/L (98-107); Estimated GFR 93; Globulin 3.4 g/dL (2.4-3.5); Glucose 128 mg/dL (83-110); Potassium 3.7 mmol/L (3.5-5.1); Protein, Total 5.7 g/dL (5.8-8.1); Sodium 145 mmol/L (136-145)
[2022-06-23 05:35] LABS: Hemoglobin 8.6 g/dL (12.0-15.5); Mean Corpuscular HGB CONC 30.9 g/dL (32.0-36.0); Mean Corpuscular Hemoglobin 31.2 pg (27.0-33.0); Mean Corpuscular Volume 100.7 fl (81.6-98.3); Mean Platelet Volume 10.8 fl (7.4-10.4); Platelet Count 185 10x3/uL (150-450); RBC Distribution Width 16.4 % (11.5-14.5); Red Blood Cell (RBC) Count 2.76 10x6/uL (3.90-5.03); White Blood Cell (WBC) Count 7.2 10x3/uL (3.5-10.5)
[2022-06-23 06:29] LABS: MDiff Complete? YES
[2022-06-23 06:34] LABS: Band 10 % (5-11); Lymphocytes 13 % (21-51); Monocytes 7 % (0-10); Neutrophil 70 % (42-75)
[2022-06-23] MEDS: Propofol 1,000 MG/100 ML VIAL IV PRN ×2 (06:47→15:48)
[2022-06-23] MEDS: Ascorbic Acid 500 mg Chewable Tablet PER TUBE SCH (08:54)
[2022-06-23] MEDS: Zinc Sulfate 220 MG CAP PER TUBE SCH (08:54)
[2022-06-23] MEDS: Famotidine/PF 20 mg/2ml Vial SLOW IVP SCH ×2 (08:54→20:04)
[2022-06-24] MEDS: Cefepime 1 GM in Sodium Chloride 0.9% 100 ML IVPB SCH (05:06)
[2022-06-24] MEDS: Hydrocortisone Sod Succ/PF 100 mg/2 ml Vial IVP SCH (05:06)
[2022-06-24] MEDS: Zinc Sulfate 220 MG CAP PER TUBE SCH (08:11)
[2022-06-24] MEDS: Ascorbic Acid 500 mg Chewable Tablet PER TUBE SCH (08:11)
[2022-06-24] MEDS: Famotidine/PF 20 mg/2ml Vial SLOW IVP SCH ×2 (08:11→20:03)
[2022-06-24] MEDS: Propofol 1,000 MG/100 ML VIAL IV PRN (09:43)
[2022-06-24 11:19] LABS: Actual Bicarbonate (HCO3a) 21.7 mEq/L (22-28); Base Excess (BEa) -2.2 mEq/L (-2.0 to +3.0); CO2 Tension 33.6 mmHg (35.0-45.0); Calcium, Ionized (arterial) 1.21 mmol/L (1.12-1.30); Carboxyhemoglobin (COHb) 0.3 gm% (0.0-3.0); O2 Tension (PaO2), arterial 90.1 mmHg (> 70.0); Potassium - ABG Lab 3.5 mmol/L (3.70-5.30); Puncture Site RRA; pH, Arterial 7.43 (7.35-7.45)
[2022-06-24] MEDS: Furosemide 20 MG/2 ML VIAL SLOW IVP SCH (13:36)
[2022-06-24] MEDS: fentaNYL Citrate-0.9 % NaCl/PF 100 ML IVPB SCH (15:05)
[2022-06-24] MEDS: Acetaminophen 325 MG TAB PO PRN (16:16)
[2022-06-24 16:53] LABS: Hemoglobin A1c 5.4 % (4.0-6.0)
[2022-06-24] MEDS ORDERED: Furosemide 40 MG/4 ML VIAL SLOW IVP SCH (21:00)
[2022-06-25 03:26] LABS: ALT (SGPT) 21 U/L (8-55); AST (SGOT) 13 U/L (5-34); Albumin 2.3 g/dL (3.4-4.8); Alkaline Phosphatase 40 U/L (40-110); Anion Gap 12 mmol/L (10-20); BUN (Urea Nitrogen) 26 mg/dL (9.8-20.1); Bilirubin, Direct 0.2 mg/dL (0.1-0.3); Bilirubin, Total 0.3 mg/dL (0.2-1.2); Calc. Creatinine Clearance 59 mL/min (70-130); Calcium 8.5 mg/dL (7.8-10.44); Carbon Dioxide 26 mmol/L (23-31); Chloride 110 mmol/L (98-107); Estimated GFR 93; Glucose 79 mg/dL (83-110); Protein, Total 5.8 g/dL (5.8-8.1); Sodium 145 mmol/L (136-145)
[2022-06-25 03:29] LABS: Hemoglobin 9.2 g/dL (12.0-15.5); Mean Corpuscular HGB CONC 32.2 g/dL (32.0-36.0); Mean Corpuscular Hemoglobin 31.5 pg (27.0-33.0); Mean Corpuscular Volume 97.9 fl (81.6-98.3); Platelet Count 228 10x3/uL (150-450); RBC Distribution Width 16.1 % (11.5-14.5); Red Blood Cell (RBC) Count 2.92 10x6/uL (3.90-5.03); White Blood Cell (WBC) Count 8.9 10x3/uL (3.5-10.5)
[2022-06-25 03:37] LABS: Cardiac Risk 5.5 (Less than 4.5); Cholesterol 180 mg/dl (< 200 Desired); HDL Cholesterol 33 mg/dL (>60 Neg Risk); LDL Cholesterol, Calculated 116 mg/dL; Triglycerides 157 mg/dL (Less than 150)
[2022-06-25 03:41] LABS: Potassium 2.9 mmol/L (3.5-5.1)
[2022-06-25 03:46] LABS: Thyroid Stimulating Hormone 2.6784 uIU/mL (0.35-4.94)
[2022-06-25 03:52] LABS: Magnesium 1.8 mg/dL (1.6-2.6)
[2022-06-25 04:07] LABS: MDiff Complete? YES
[2022-06-25 04:11] LABS: Band 1 % (5-11); Lymphocytes 14 % (21-51); Monocytes 8 % (0-10); Neutrophil 77 % (42-75)
[2022-06-25 04:13] LABS: Microcytosis SLIGHT = 6-15 cells (100X) (0-5/hpf); Platelet Morphology Comment Appears Adequate
[2022-06-25 04:14] LABS: Microcytosis SLIGHT = 6-15 cells (100X) (0-5/hpf); Platelet Morphology Comment Appears Adequate
[2022-06-25] MEDS: Acetaminophen 325 MG TAB PO PRN ×2 (04:36→14:23)
[2022-06-25] MEDS ORDERED: Magnesium 2 GM/50 ML(in water) 2 GM in Premix Bag 1 BAG IVPB SCH (05:30)
[2022-06-25] MEDS: Potassium Bicarbonate/Cit Ac 20 MEQ TAB PO SCH ×2 (05:48→09:33)
[2022-06-25] MEDS: Furosemide 20 MG/2 ML VIAL SLOW IVP SCH ×2 (05:48→13:28)
[2022-06-25] MEDS: Ascorbic Acid 500 mg Chewable Tablet PER TUBE SCH (08:08)
[2022-06-25] MEDS: Famotidine/PF 20 mg/2ml Vial SLOW IVP SCH ×2 (08:08→20:33)
[2022-06-25] MEDS: Polyethylene Glycol 3350 17 GM Packet PO SCH (08:15)
[2022-06-25] MEDS ORDERED: Hydrocortisone Sod Succ/PF 100 mg/2 ml Vial IVP SCH (09:00)
[2022-06-25] MEDS: Zinc Sulfate 220 MG CAP PER TUBE SCH (09:32)
[2022-06-25] MEDS ORDERED: PROPOFOL 200 MG/20 ML VIAL ONE (11:40)
[2022-06-25] MEDS ORDERED: Rocuronium Bromide 10 MG/ML (10ML VIAL) ONE (11:40)
[2022-06-25] MEDS ORDERED: NOREPINEPHRINE 8 MG/250 ML-D5W 250 ML ONE (12:00)
[2022-06-25] MEDS ORDERED: NOREPINEPHRINE 8 MG/250 ML-D5W 250 ML IVPB SCH (12:30)
[2022-06-25 12:53] LABS: Actual Bicarbonate (HCO3a) 27.1 mEq/L (22-28); Base Excess (BEa) 2.5 mEq/L (-2.0 to +3.0); Calcium, Ionized (arterial) 1.18 mmol/L (1.12-1.30); Carboxyhemoglobin (COHb) 0.3 gm% (0.0-3.0); Potassium - ABG Lab 3.5 mmol/L (3.70-5.30); Puncture Site RRA; pH, Arterial 7.43 (7.35-7.45)
[2022-06-25 15:28] LABS: Potassium 3.6 mmol/L (3.5-5.1)
[2022-06-25] MEDS: Atorvastatin Calcium 10 MG TAB PO SCH (20:33)
[2022-06-25] MEDS: Propofol 1,000 MG/100 ML VIAL IV PRN (22:31)
[2022-06-26 04:01] LABS: Hemoglobin 8.4 g/dL (12.0-15.5); Mean Corpuscular HGB CONC 32.2 g/dL (32.0-36.0); Mean Corpuscular Hemoglobin 31.6 pg (27.0-33.0); Mean Corpuscular Volume 98.1 fl (81.6-98.3); Mean Platelet Volume 10.5 fl (7.4-10.4); Platelet Count 225 10x3/uL (150-450); RBC Distribution Width 16.2 % (11.5-14.5); Red Blood Cell (RBC) Count 2.66 10x6/uL (3.90-5.03); White Blood Cell (WBC) Count 13.6 10x3/uL (3.5-10.5)
[2022-06-26 04:29] LABS: Anion Gap 14 mmol/L (10-20); BUN (Urea Nitrogen) 22 mg/dL (9.8-20.1); Calc. Creatinine Clearance 60 mL/min (70-130); Calcium 8.1 mg/dL (7.8-10.44); Carbon Dioxide 28 mmol/L (23-31); Chloride 106 mmol/L (98-107); Estimated GFR 94; Glucose 73 mg/dL (83-110); Magnesium 2.2 mg/dL (1.6-2.6); Potassium 3.1 mmol/L (3.5-5.1); Sodium 145 mmol/L (136-145)
[2022-06-26] MEDS ORDERED: Potassium Bicarbonate/Cit Ac 20 MEQ TAB PER TUBE SCH ×2 (05:15→13:00)
[2022-06-26] MEDS: Propofol 1,000 MG/100 ML VIAL IV PRN (05:50)
[2022-06-26] MEDS: Furosemide 20 MG/2 ML VIAL SLOW IVP SCH (05:51)
[2022-06-26 06:36] LABS: MDiff Complete? YES
[2022-06-26 06:50] LABS: Band 5 % (5-11); Lymphocytes 12 % (21-51); Monocytes 4 % (0-10); Neutrophil 79 % (42-75); Platelet Morphology Comment Appears Adequate
[2022-06-26] MEDS: Zinc Sulfate 220 MG CAP PER TUBE SCH (08:51)
[2022-06-26] MEDS: Polyethylene Glycol 3350 17 GM Packet PO SCH (08:51)
[2022-06-26] MEDS: Famotidine/PF 20 mg/2ml Vial SLOW IVP SCH ×2 (08:51→21:59)
[2022-06-26] MEDS: Ascorbic Acid 500 mg Chewable Tablet PER TUBE SCH (08:51)
[2022-06-26 11:32] LABS: Potassium 3.3 mmol/L (3.5-5.1)
[2022-06-26] MEDS: methylPREDNISolone Sod Succ 40 MG VIAL IVP SCH ×2 (11:32→17:10)
[2022-06-26] MEDS ORDERED: Vancomycin 1 GM in Premix Bag 1 BAG IVPB SCH (11:48)
[2022-06-26] MEDS ORDERED: Vancomycin HCl 500 MG in Sodium Chloride 0.9% 100 ML IVPB SCH (13:00)
[2022-06-26] MEDS: Vancomycin HCl 500 MG in Sodium Chloride 0.9% 100 ML IVPB SCH (13:09)
[2022-06-26 15:55] LABS: Phosphorus 3.4 mg/dL (2.3-4.7)
[2022-06-26 16:07] LABS: Bilirubin Neg (Negative); Blood, Urine 25 (Negative); Clarity Cloudy (Clear); Glucose, Urine (Dipstick) Normal (Negative); Ketone, Urine Negative (Negative); Leukocyte 25 (Negative); Nitrite Negative (Negative); Protein, Urine (Dipstick) 30 mg/dl (Neg-Trace); Urobilinogen Normal mg/dL (Less than 2)
[2022-06-26 16:42] LABS: Bacteria/HPF None Seen HPF (None Seen); RBC/HPF 0-3 HPF (0-3); WBC/HPF 0-3 HPF (0-3)
[2022-06-26] MEDS: fentaNYL Citrate-0.9 % NaCl/PF 100 ML IVPB SCH (16:50)
[2022-06-26 20:00] LABS: Potassium 4.7 mmol/L (3.5-5.1)
[2022-06-26] MEDS: Atorvastatin Calcium 10 MG TAB PO SCH (21:59)
[2022-06-27] MEDS: methylPREDNISolone Sod Succ 40 MG VIAL IVP SCH ×5 (01:07→22:11)
[2022-06-27] MEDS: Propofol 1,000 MG/100 ML VIAL IV PRN ×3 (01:07→21:16)
[2022-06-27] MEDS: Vancomycin HCl 500 MG in Sodium Chloride 0.9% 100 ML IVPB SCH ×2 (01:46→12:17)
[2022-06-27 04:14] LABS: Hemoglobin 9.2 g/dL (12.0-15.5); Mean Corpuscular HGB CONC 31.2 g/dL (32.0-36.0); Mean Corpuscular Hemoglobin 31.2 pg (27.0-33.0); Mean Platelet Volume 10.4 fl (7.4-10.4); Platelet Count 272 10x3/uL (150-450); RBC Distribution Width 16.1 % (11.5-14.5); Red Blood Cell (RBC) Count 2.95 10x6/uL (3.90-5.03); White Blood Cell (WBC) Count 15.9 10x3/uL (3.5-10.5)
[2022-06-27 04:47] LABS: Anion Gap 16 mmol/L (10-20); BUN (Urea Nitrogen) 21 mg/dL (9.8-20.1); Calc. Creatinine Clearance 56 mL/min (70-130); Calcium 8.2 mg/dL (7.8-10.44); Carbon Dioxide 29 mmol/L (23-31); Chloride 103 mmol/L (98-107); Estimated GFR 94; Glucose 115 mg/dL (83-110); Magnesium 2.1 mg/dL (1.6-2.6); Potassium 4.6 mmol/L (3.5-5.1); Sodium 143 mmol/L (136-145)
[2022-06-27 04:54] LABS: Actual Bicarbonate (HCO3a) 30.8 mEq/L (22-28); Base Excess (BEa) 7.6 mEq/L (-2.0 to +3.0); CO2 Tension 37.6 mmHg (35.0-45.0); Calcium, Ionized (arterial) 1.14 mmol/L (1.12-1.30); Carboxyhemoglobin (COHb) 0.3 gm% (0.0-3.0); Hemoglobin (Hb) 9.4 g/dL (12.0-16.0); O2 Tension (PaO2), arterial 99.8 mmHg (> 70.0); Potassium - ABG Lab 4.4 mmol/L (3.70-5.30); Puncture Site RRA; pH, Arterial 7.53 (7.35-7.45)
[2022-06-27 05:10] LABS: MDiff Complete? YES
[2022-06-27 05:11] LABS: Platelet Morphology Comment Appears Adequate
[2022-06-27 05:13] LABS: Band 3 % (5-11); Eosinophils 1 % (0-10); Lymphocytes 5 % (21-51); Metamyelocyte 1 % (0-0); Monocytes 4 % (0-10); Neutrophil 85 % (42-75); Reactive Lymphocytes 1 % (0-10)
[2022-06-27] MEDS: Polyethylene Glycol 3350 17 GM Packet PO SCH (08:01)
[2022-06-27] MEDS: Ascorbic Acid 500 mg Chewable Tablet PER TUBE SCH (08:03)
[2022-06-27] MEDS: Famotidine/PF 20 mg/2ml Vial SLOW IVP SCH ×2 (08:04→22:11)
[2022-06-27] MEDS: Zinc Sulfate 220 MG CAP PER TUBE SCH (08:05)
[2022-06-27] MEDS: Atorvastatin Calcium 10 MG TAB PO SCH (22:11)
[2022-06-28] MEDS: fentaNYL Citrate-0.9 % NaCl/PF 100 ML IVPB SCH (00:09)
[2022-06-28] MEDS: Vancomycin HCl 750 MG in Sodium Chloride 0.9% 250 ML 250 ML IVPB SCH ×2 (01:46→13:10)
[2022-06-28] MEDS: Vancomycin HCl 500 MG in Sodium Chloride 0.9% 100 ML IVPB SCH (01:47)
[2022-06-28 05:55] LABS: Anion Gap 17 mmol/L (10-20); BUN (Urea Nitrogen) 23 mg/dL (9.8-20.1); Calc. Creatinine Clearance 52 mL/min (70-130); Calcium 7.9 mg/dL (7.8-10.44); Carbon Dioxide 24 mmol/L (23-31); Chloride 104 mmol/L (98-107); Estimated GFR 92; Glucose 136 mg/dL (83-110); Potassium 3.9 mmol/L (3.5-5.1); Sodium 141 mmol/L (136-145)
[2022-06-28] MEDS: methylPREDNISolone Sod Succ 40 MG VIAL IVP SCH ×4 (07:18→22:10)
[2022-06-28 08:21] LABS: ALT (SGPT) 21 U/L (8-55); AST (SGOT) 16 U/L (5-34); Albumin 2.4 g/dL (3.4-4.8); Alkaline Phosphatase 48 U/L (40-110); Bilirubin, Direct 0.3 mg/dL (0.1-0.3); Bilirubin, Total 0.4 mg/dL (0.2-1.2); Protein, Total 5.9 g/dL (5.8-8.1)
[2022-06-28] MEDS ORDERED: Magnesium 2 GM/50 ML(in water) 2 GM in Premix Bag 1 BAG IVPB SCH (09:00)
[2022-06-28] MEDS: Ascorbic Acid 500 mg Chewable Tablet PER TUBE SCH (09:39)
[2022-06-28] MEDS: Zinc Sulfate 220 MG CAP PER TUBE SCH (09:39)
[2022-06-28] MEDS: Famotidine/PF 20 mg/2ml Vial SLOW IVP SCH ×2 (09:40→22:10)
[2022-06-28] MEDS: Polyethylene Glycol 3350 17 GM Packet PO SCH (09:40)
[2022-06-28 10:26] LABS: Hemoglobin 8.4 g/dL (12.0-15.5); Mean Corpuscular HGB CONC 32.7 g/dL (32.0-36.0); Mean Corpuscular Hemoglobin 31.2 pg (27.0-33.0); Mean Corpuscular Volume 95.5 fl (81.6-98.3); Mean Platelet Volume 10.7 fl (7.4-10.4); Platelet Count 302 10x3/uL (150-450); RBC Distribution Width 15.9 % (11.5-14.5); Red Blood Cell (RBC) Count 2.69 10x6/uL (3.90-5.03); White Blood Cell (WBC) Count 11.3 10x3/uL (3.5-10.5)
[2022-06-28 10:33] LABS: MDiff Complete? YES; Manual Diff?? YES
[2022-06-28 11:51] LABS: Band 5 % (5-11); Lymphocytes 3 % (21-51); Monocytes 2 % (0-10); Neutrophil 90 % (42-75)
[2022-06-28 11:52] LABS: Anisocytosis SLIGHT = 6-15 cells (100X) (0-5/hpf); Hypochromia SLIGHT = 6-15 cells (100X) (0-5/hpf); Macrocytosis SLIGHT = 6-15 cells (100X) (0-5/hpf); Microcytosis SLIGHT = 6-15 cells (100X) (0-5/hpf); Platelet Morphology Comment Appears Adequate; Polychromasia SLIGHT = 2-3 cells (100X) (0-2/hpf)
[2022-06-28] MEDS: Propofol 1,000 MG/100 ML VIAL IV PRN ×2 (12:56→18:15)
[2022-06-28 18:23] LABS: ALV-art Gradient 157.075 mmHg (0-20); Actual Bicarbonate (HCO3a) 26.3 mEq/L (22-28); Base Excess (BEa) 4.9 mEq/L (-2.0 to +3.0); CO2 Tension 27.7 mmHg (35.0-45.0); Hemoglobin (Hb) 8.9 g/dL (12.0-16.0); O2 Tension (PaO2), arterial 93.5 mmHg (> 70.0); Potassium - ABG Lab 3.8 mmol/L (3.70-5.30); Puncture Site RRA
[2022-06-28] MEDS: Albumin 25% 25 GM/100 ML BOT IVPB SCH (22:10)
[2022-06-28] MEDS: Atorvastatin Calcium 10 MG TAB PO SCH (22:10)
[2022-06-29] MEDS: Vancomycin HCl 750 MG in Sodium Chloride 0.9% 250 ML 250 ML IVPB SCH (02:24)
[2022-06-29] MEDS ORDERED: Vancomycin HCl 750 MG VIAL ONE (02:26)
[2022-06-29] MEDS: Propofol 1,000 MG/100 ML VIAL IV PRN ×3 (03:22→20:41)
[2022-06-29 03:32] LABS: #Monocytes 0.4 10x3/uL (0.0-1.1); %Basophils 0.1 % (0.0-2.0); %Lymphocytes 5.5 % (18.0-47.0); %Monocytes 3.6 % (0.0-10.0); %Neutrophils 90.2 % (40.0-75.0); Hemoglobin 7.6 g/dL (12.0-15.5); Mean Corpuscular HGB CONC 31.4 g/dL (32.0-36.0); Mean Corpuscular Hemoglobin 31.3 pg (27.0-33.0); Mean Corpuscular Volume 99.6 fl (81.6-98.3); Mean Platelet Volume 10.3 fl (7.4-10.4); Platelet Count 283 10x3/uL (150-450); RBC Distribution Width 15.8 % (11.5-14.5); Red Blood Cell (RBC) Count 2.43 10x6/uL (3.90-5.03)
[2022-06-29 03:46] LABS: Anion Gap 13 mmol/L (10-20); BUN (Urea Nitrogen) 23 mg/dL (9.8-20.1); Calc. Creatinine Clearance 57 mL/min (70-130); Calcium 8.1 mg/dL (7.8-10.44); Carbon Dioxide 27 mmol/L (23-31); Chloride 104 mmol/L (98-107); Estimated GFR 94; Glucose 128 mg/dL (83-110); Magnesium 2.6 mg/dL (1.6-2.6); Potassium 4.3 mmol/L (3.5-5.1); Sodium 140 mmol/L (136-145)
[2022-06-29 04:43] LABS: ALV-art Gradient 124.525 mmHg (0-20); Actual Bicarbonate (HCO3a) 27.3 mEq/L (22-28); Base Excess (BEa) 2.5 mEq/L (-2.0 to +3.0); CO2 Tension 43.1 mmHg (35.0-45.0); Calcium, Ionized (arterial) 1.12 mmol/L (1.12-1.30); Carboxyhemoglobin (COHb) 0.3 gm% (0.0-3.0); Hemoglobin (Hb) 7.8 g/dL (12.0-16.0); O2 Tension (PaO2), arterial 106.8 mmHg (> 70.0); Potassium - ABG Lab 4.2 mmol/L (3.70-5.30); Puncture Site RRA; RapidComm Collect By CP.JL; pH, Arterial 7.42 (7.35-7.45)
[2022-06-29] MEDS: methylPREDNISolone Sod Succ 40 MG VIAL IVP SCH ×3 (05:19→20:41)
[2022-06-29] MEDS: Polyethylene Glycol 3350 17 GM Packet PO SCH (08:27)
[2022-06-29] MEDS: Albumin 25% 25 GM/100 ML BOT IVPB SCH ×2 (08:27→14:47)
[2022-06-29] MEDS: Ascorbic Acid 500 mg Chewable Tablet PER TUBE SCH (08:28)
[2022-06-29] MEDS: Zinc Sulfate 220 MG CAP PER TUBE SCH (08:28)
[2022-06-29] MEDS: Famotidine/PF 20 mg/2ml Vial SLOW IVP SCH ×2 (08:28→20:41)
[2022-06-29 13:37] LABS: Vancomycin, Trough 22.6 ug/mL
[2022-06-29] MEDS: fentaNYL Citrate-0.9 % NaCl/PF 100 ML IVPB SCH (14:46)
[2022-06-29] MEDS: Atorvastatin Calcium 10 MG TAB PO SCH (20:41)
[2022-06-29] MEDS: Vancomycin HCl 500 MG in Sodium Chloride 0.9% 250 ML 250 ML IVPB SCH (20:41)
[2022-06-30] MEDS: Propofol 1,000 MG/100 ML VIAL IV PRN ×2 (04:19→14:17)
[2022-06-30 05:18] LABS: Anion Gap 14 mmol/L (10-20); BUN (Urea Nitrogen) 22 mg/dL (9.8-20.1); Calc. Creatinine Clearance 55 mL/min (70-130); Calcium 8.7 mg/dL (7.8-10.44); Carbon Dioxide 28 mmol/L (23-31); Chloride 105 mmol/L (98-107); Estimated GFR 92; Glucose 99 mg/dL (83-110); Magnesium 2.4 mg/dL (1.6-2.6); Potassium 4.1 mmol/L (3.5-5.1); Sodium 143 mmol/L (136-145)
[2022-06-30 05:33] LABS: #Monocytes 0.5 10x3/uL (0.0-1.1); #Neutrophils 9.3 10x3/uL (1.5-8.4); %Basophils 0.1 % (0.0-2.0); %Eosinophils 0.1 % (0.0-6.0); %Lymphocytes 6.4 % (18.0-47.0); %Monocytes 4.8 % (0.0-10.0); %Neutrophils 88.1 % (40.0-75.0); Hemoglobin 7.7 g/dL (12.0-15.5); Mean Corpuscular HGB CONC 31.4 g/dL (32.0-36.0); Mean Corpuscular Hemoglobin 31.6 pg (27.0-33.0); Mean Corpuscular Volume 100.4 fl (81.6-98.3); Mean Platelet Volume 9.9 fl (7.4-10.4); Platelet Count 312 10x3/uL (150-450); RBC Distribution Width 15.3 % (11.5-14.5); Red Blood Cell (RBC) Count 2.44 10x6/uL (3.90-5.03); White Blood Cell (WBC) Count 10.5 10x3/uL (3.5-10.5)
[2022-06-30 07:55] LABS: Actual Bicarbonate (HCO3a) 28.5 mEq/L (22-28); Base Excess (BEa) 3.2 mEq/L (-2.0 to +3.0); CO2 Tension 47.6 mmHg (35.0-45.0); Calcium, Ionized (arterial) 1.16 mmol/L (1.12-1.30); Carboxyhemoglobin (COHb) 0.3 gm% (0.0-3.0); Hemoglobin (Hb) 7.9 g/dL (12.0-16.0); O2 Tension (PaO2), arterial 94.7 mmHg (> 70.0); Potassium - ABG Lab 3.6 mmol/L (3.70-5.30); Puncture Site RRA
[2022-06-30] MEDS: methylPREDNISolone Sod Succ 40 MG VIAL IVP SCH ×2 (09:49→20:37)
[2022-06-30] MEDS: Ascorbic Acid 500 mg Chewable Tablet PER TUBE SCH (09:49)
[2022-06-30] MEDS: Famotidine/PF 20 mg/2ml Vial SLOW IVP SCH (09:49)
[2022-06-30] MEDS: Zinc Sulfate 220 MG CAP PER TUBE SCH (09:52)
[2022-06-30] MEDS: Vancomycin HCl 500 MG in Sodium Chloride 0.9% 250 ML 250 ML IVPB SCH ×2 (09:52→20:37)
[2022-06-30] MEDS: Polyethylene Glycol 3350 17 GM Packet PO SCH (09:54)
[2022-06-30] MEDS: Atorvastatin Calcium 10 MG TAB PO SCH (20:38)
[2022-07-01] MEDS: Propofol 1,000 MG/100 ML VIAL IV PRN ×4 (00:18→21:44)
[2022-07-01 04:24] LABS: ALV-art Gradient 116.325 mmHg (0-20); Actual Bicarbonate (HCO3a) 29.8 mEq/L (22-28); CO2 Tension 45.5 mmHg (35.0-45.0); Calcium, Ionized (arterial) 1.16 mmol/L (1.12-1.30); Carboxyhemoglobin (COHb) 0.3 gm% (0.0-3.0); Hemoglobin (Hb) 8.5 g/dL (12.0-16.0); Potassium - ABG Lab 3.8 mmol/L (3.70-5.30); Puncture Site RRA; pH, Arterial 7.43 (7.35-7.45)
[2022-07-01 04:59] LABS: #Monocytes 0.4 10x3/uL (0.0-1.1); #Neutrophils 8.3 10x3/uL (1.5-8.4); %Basophils 0.1 % (0.0-2.0); %Eosinophils 0.1 % (0.0-6.0); %Lymphocytes 10.8 % (18.0-47.0); %Monocytes 3.8 % (0.0-10.0); %Neutrophils 84.8 % (40.0-75.0); Hemoglobin 9.4 g/dL (12.0-15.5); Mean Corpuscular HGB CONC 31.6 g/dL (32.0-36.0); Mean Platelet Volume 10.9 fl (7.4-10.4); Platelet Count 245 10x3/uL (150-450); RBC Distribution Width 15.3 % (11.5-14.5); Red Blood Cell (RBC) Count 3.03 10x6/uL (3.90-5.03); White Blood Cell (WBC) Count 9.7 10x3/uL (3.5-10.5)
[2022-07-01 05:23] LABS: Anion Gap 15 mmol/L (10-20); BUN (Urea Nitrogen) 18 mg/dL (9.8-20.1); Calc. Creatinine Clearance 54 mL/min (70-130); Calcium 9.1 mg/dL (7.8-10.44); Carbon Dioxide 27 mmol/L (23-31); Chloride 104 mmol/L (98-107); Estimated GFR 92; Glucose 89 mg/dL (83-110); Magnesium 2.2 mg/dL (1.6-2.6); Potassium 4.1 mmol/L (3.5-5.1); Sodium 142 mmol/L (136-145)
[2022-07-01] MEDS: methylPREDNISolone Sod Succ 40 MG VIAL IVP SCH ×2 (08:06→21:43)
[2022-07-01] MEDS: fentaNYL Citrate-0.9 % NaCl/PF 100 ML IVPB SCH (08:06)
[2022-07-01] MEDS: Polyethylene Glycol 3350 17 GM Packet PO SCH (08:06)
[2022-07-01] MEDS: Vancomycin HCl 500 MG in Sodium Chloride 0.9% 250 ML 250 ML IVPB SCH ×3 (08:06→16:03)
[2022-07-01] MEDS: Ascorbic Acid 500 mg Chewable Tablet PER TUBE SCH (08:06)
[2022-07-01] MEDS: Zinc Sulfate 220 MG CAP PER TUBE SCH (08:06)
[2022-07-01 09:05] LABS: Vancomycin, Trough 23.1 ug/mL
[2022-07-01] MEDS: Atorvastatin Calcium 10 MG TAB PO SCH (21:43)
[2022-07-02] MEDS: fentaNYL Citrate-0.9 % NaCl/PF 100 ML IVPB SCH (03:03)
[2022-07-02] MEDS: Propofol 1,000 MG/100 ML VIAL IV PRN ×3 (05:19→18:46)
[2022-07-02 06:40] LABS: Actual Bicarbonate (HCO3a) 29.6 mEq/L (22-28); Base Excess (BEa) 5.7 mEq/L (-2.0 to +3.0); CO2 Tension 40.6 mmHg (35.0-45.0); Calcium, Ionized (arterial) 1.16 mmol/L (1.12-1.30); Carboxyhemoglobin (COHb) 0.1 gm% (0.0-3.0); Critical Notified By: CP.PH; Hemoglobin (Hb) 7.9 g/dL (12.0-16.0); O2 Tension (PaO2), arterial 104.4 mmHg (> 70.0); Potassium - ABG Lab 3.3 mmol/L (3.70-5.30); Puncture Site RRA; RapidComm Collect By CP.PH; pH, Arterial 7.48 (7.35-7.45)
[2022-07-02] MEDS: Zinc Sulfate 220 MG CAP PER TUBE SCH (08:22)
[2022-07-02] MEDS: Ascorbic Acid 500 mg Chewable Tablet PER TUBE SCH (08:22)
[2022-07-02] MEDS: Vancomycin HCl 500 MG in Sodium Chloride 0.9% 250 ML 250 ML IVPB SCH (08:22)
[2022-07-02] MEDS: Lansoprazole 3 MG/ML ORAL SUSPENSION PER TUBE SCH (08:22)
[2022-07-02] MEDS: Polyethylene Glycol 3350 17 GM Packet PO SCH (08:23)
[2022-07-02] MEDS: methylPREDNISolone Sod Succ 40 MG VIAL IVP SCH ×2 (08:23→21:39)
[2022-07-02] MEDS: Atorvastatin Calcium 10 MG TAB PO SCH (21:39)
[2022-07-03] MEDS: fentaNYL Citrate-0.9 % NaCl/PF 100 ML IVPB SCH ×2 (01:23→16:39)
[2022-07-03 02:41] LABS: Vancomycin, Trough 19.8 ug/mL
[2022-07-03] MEDS: Vancomycin HCl 500 MG in Sodium Chloride 0.9% 250 ML 250 ML IVPB SCH ×2 (03:37→21:30)
[2022-07-03] MEDS: Propofol 1,000 MG/100 ML VIAL IV PRN ×3 (03:37→15:50)
[2022-07-03 05:13] LABS: Actual Bicarbonate (HCO3a) 26.3 mEq/L (22-28); Base Excess (BEa) 0.9 mEq/L (-2.0 to +3.0); CO2 Tension 45.7 mmHg (35.0-45.0); Carboxyhemoglobin (COHb) 0.3 gm% (0.0-3.0); Critical Notified By: CP.PH; Hemoglobin (Hb) 10.1 g/dL (12.0-16.0); O2 Tension (PaO2), arterial 86.5 mmHg (> 70.0); Potassium - ABG Lab 3.3 mmol/L (3.70-5.30); Puncture Site RRA; RapidComm Collect By CP.PH; pH, Arterial 7.38 (7.35-7.45)
[2022-07-03] MEDS: Ascorbic Acid 500 mg Chewable Tablet PER TUBE SCH (08:50)
[2022-07-03] MEDS: methylPREDNISolone Sod Succ 40 MG VIAL IVP SCH ×2 (08:50→21:30)
[2022-07-03] MEDS: Zinc Sulfate 220 MG CAP PER TUBE SCH (08:50)
[2022-07-03] MEDS: Polyethylene Glycol 3350 17 GM Packet PO SCH (08:50)
[2022-07-03] MEDS: Lansoprazole 3 MG/ML ORAL SUSPENSION PER TUBE SCH (10:05)
[2022-07-03] MEDS: Acetaminophen 325 MG TAB PO PRN ×2 (10:24→16:39)
[2022-07-03] MEDS: cefTRIAXone\\ROCEPHIN 1 GM in Sodium Chloride 0.9% 100 ML IVPB SCH (12:55)
[2022-07-03] MEDS: Atorvastatin Calcium 10 MG TAB PO SCH (21:30)
[2022-07-04] MEDS: Propofol 1,000 MG/100 ML VIAL IV PRN ×3 (01:41→17:51)
[2022-07-04 04:19] LABS: Mean Corpuscular HGB CONC 31.8 g/dL (32.0-36.0); Mean Corpuscular Hemoglobin 31.3 pg (27.0-33.0); Mean Corpuscular Volume 98.4 fl (81.6-98.3); Mean Platelet Volume 9.5 fl (7.4-10.4); Platelet Count 267 10x3/uL (150-450); RBC Distribution Width 15.6 % (11.5-14.5); Red Blood Cell (RBC) Count 3.19 10x6/uL (3.90-5.03); White Blood Cell (WBC) Count 19.2 10x3/uL (3.5-10.5)
[2022-07-04 04:29] LABS: ALT (SGPT) 17 U/L (8-55); AST (SGOT) 11 U/L (5-34); Albumin 2.9 g/dL (3.4-4.8); Alkaline Phosphatase 43 U/L (40-110); Anion Gap 17 mmol/L (10-20); BUN (Urea Nitrogen) 19 mg/dL (9.8-20.1); Bilirubin, Total 0.4 mg/dL (0.2-1.2); Calc. Creatinine Clearance 64 mL/min (70-130); Calcium 8.8 mg/dL (7.8-10.44); Carbon Dioxide 25 mmol/L (23-31); Chloride 104 mmol/L (98-107); Estimated GFR 95; Globulin 3.4 g/dL (2.4-3.5); Glucose 102 mg/dL (83-110); Magnesium 1.7 mg/dL (1.6-2.6); Potassium 3.6 mmol/L (3.5-5.1); Protein, Total 6.3 g/dL (5.8-8.1); Sodium 142 mmol/L (136-145)
[2022-07-04 04:46] LABS: MDiff Complete? YES
[2022-07-04 04:50] LABS: Actual Bicarbonate (HCO3a) 27.2 mEq/L (22-28); Base Excess (BEa) 2.4 mEq/L (-2.0 to +3.0); CO2 Tension 43.4 mmHg (35.0-45.0); Calcium, Ionized (arterial) 1.18 mmol/L (1.12-1.30); Carboxyhemoglobin (COHb) 0.3 gm% (0.0-3.0); Critical Notified By: CP.PH; Hemoglobin (Hb) 9.1 g/dL (12.0-16.0); O2 Tension (PaO2), arterial 111.9 mmHg (> 70.0); Potassium - ABG Lab 3.2 mmol/L (3.70-5.30); Puncture Site RRA; RapidComm Collect By CP.PH; pH, Arterial 7.42 (7.35-7.45)
[2022-07-04 04:51] LABS: Band 16 % (5-11); Lymphocytes 4 % (21-51); Monocytes 10 % (0-10); Neutrophil 69 % (42-75); Reactive Lymphocytes 1 % (0-10)
[2022-07-04 04:52] LABS: Platelet Morphology Comment Appears Adequate; RBC Morphology Normal
[2022-07-04] MEDS ORDERED: Magnesium 2 GM/50 ML(in water) 2 GM in Premix Bag 1 BAG IVPB SCH (05:15)
[2022-07-04] MEDS: Ascorbic Acid 500 mg Chewable Tablet PER TUBE SCH (08:31)
[2022-07-04] MEDS: Polyethylene Glycol 3350 17 GM Packet PO SCH (08:31)
[2022-07-04] MEDS: Zinc Sulfate 220 MG CAP PER TUBE SCH (08:31)
[2022-07-04] MEDS: Lansoprazole 3 MG/ML ORAL SUSPENSION PER TUBE SCH (08:31)
[2022-07-04] MEDS: methylPREDNISolone Sod Succ 40 MG VIAL IVP SCH ×2 (08:31→20:54)
[2022-07-04] MEDS: cefTRIAXone\\ROCEPHIN 1 GM in Sodium Chloride 0.9% 100 ML IVPB SCH (12:08)
[2022-07-04] MEDS: fentaNYL Citrate-0.9 % NaCl/PF 100 ML IVPB SCH (12:35)
[2022-07-04] MEDS: Vancomycin HCl 500 MG in Sodium Chloride 0.9% 250 ML 250 ML IVPB SCH (15:13)
[2022-07-04] MEDS: Atorvastatin Calcium 10 MG TAB PO SCH (20:54)
[2022-07-05] MEDS: Propofol 1,000 MG/100 ML VIAL IV PRN ×3 (04:55→23:51)
[2022-07-05 05:38] LABS: Actual Bicarbonate (HCO3a) 28.5 mEq/L (22-28); Base Excess (BEa) 2.4 mEq/L (-2.0 to +3.0); Calcium, Ionized (arterial) 1.23 mmol/L (1.12-1.30); Critical Notified By: CP.PH; Hemoglobin (Hb) 9.2 g/dL (12.0-16.0); O2 Tension (PaO2), arterial 112.1 mmHg (> 70.0); Potassium - ABG Lab 3.1 mmol/L (3.70-5.30); Puncture Site RRA; RapidComm Collect By CP.PH; pH, Arterial 7.36 (7.35-7.45)
[2022-07-05] MEDS: fentaNYL Citrate-0.9 % NaCl/PF 100 ML IVPB SCH (08:30)
[2022-07-05] MEDS: Ascorbic Acid 500 mg Chewable Tablet PER TUBE SCH (08:35)
[2022-07-05] MEDS: Zinc Sulfate 220 MG CAP PER TUBE SCH (08:35)
[2022-07-05] MEDS: Polyethylene Glycol 3350 17 GM Packet PO SCH (08:35)
[2022-07-05] MEDS: Lansoprazole 3 MG/ML ORAL SUSPENSION PER TUBE SCH (08:36)
[2022-07-05] MEDS: methylPREDNISolone Sod Succ/PF 125 MG/2 ML VIAL IVP SCH ×2 (09:04→21:27)
[2022-07-05 09:33] LABS: Vancomycin, Trough 17.2 ug/mL
[2022-07-05 09:37] LABS: ALT (SGPT) 12 U/L (8-55); AST (SGOT) 7 U/L (5-34); Albumin 2.8 g/dL (3.4-4.8); Alkaline Phosphatase 43 U/L (40-110); Anion Gap 13 mmol/L (10-20); BUN (Urea Nitrogen) 20 mg/dL (9.8-20.1); Bilirubin, Total 0.3 mg/dL (0.2-1.2); Calc. Creatinine Clearance 67 mL/min (70-130); Calcium 8.7 mg/dL (7.8-10.44); Carbon Dioxide 27 mmol/L (23-31); Chloride 105 mmol/L (98-107); Estimated GFR 97; Globulin 3.1 g/dL (2.4-3.5); Glucose 132 mg/dL (83-110); Potassium 3.5 mmol/L (3.5-5.1); Protein, Total 5.9 g/dL (5.8-8.1); Sodium 141 mmol/L (136-145)
[2022-07-05 09:38] LABS: Hemoglobin 8.2 g/dL (12.0-15.5); Mean Corpuscular HGB CONC 31.5 g/dL (32.0-36.0); Mean Corpuscular Hemoglobin 31.4 pg (27.0-33.0); Mean Corpuscular Volume 99.6 fl (81.6-98.3); Mean Platelet Volume 10.6 fl (7.4-10.4); Platelet Count 262 10x3/uL (150-450); RBC Distribution Width 15.5 % (11.5-14.5); Red Blood Cell (RBC) Count 2.61 10x6/uL (3.90-5.03); White Blood Cell (WBC) Count 10.1 10x3/uL (3.5-10.5)
[2022-07-05 09:39] LABS: MDiff Complete? YES
[2022-07-05 09:59] LABS: Band 2 % (5-11); Eosinophils 1 % (0-10); Lymphocytes 3 % (21-51); Monocytes 2 % (0-10); Neutrophil 92 % (42-75)
[2022-07-05 10:03] LABS: Platelet Morphology Comment Appears Adequate
[2022-07-05 10:06] LABS: Anisocytosis SLIGHT = 6-15 cells (100X) (0-5/hpf); Ovalocytes SLIGHT = 2-5 cells (100X) (0-1/hpf)
[2022-07-05] MEDS ORDERED: Potassium Bicarbonate/Cit Ac 20 MEQ TAB PO SCH (11:00)
[2022-07-05] MEDS ORDERED: Magnesium 2 GM/50 ML(in water) 2 GM in Premix Bag 1 BAG IVPB SCH (11:00)
[2022-07-05] MEDS: Vancomycin HCl 500 MG in Sodium Chloride 0.9% 250 ML 250 ML IVPB SCH (11:41)
[2022-07-05] MEDS: cefTRIAXone\\ROCEPHIN 1 GM in Sodium Chloride 0.9% 100 ML IVPB SCH (11:57)
[2022-07-05] MEDS: Atorvastatin Calcium 10 MG TAB PO SCH (21:27)
[2022-07-05 22:20] LABS: Potassium 4.2 mmol/L (3.5-5.1)
[2022-07-06] MEDS: Vancomycin HCl 500 MG in Sodium Chloride 0.9% 250 ML 250 ML IVPB SCH ×2 (03:52→22:00)
[2022-07-06 04:55] LABS: Phosphorus 3.5 mg/dL (2.3-4.7)
[2022-07-06 04:57] LABS: Magnesium 2.4 mg/dL (1.6-2.6)
[2022-07-06] MEDS: fentaNYL Citrate-0.9 % NaCl/PF 100 ML IVPB SCH (05:28)
[2022-07-06 05:57] LABS: Actual Bicarbonate (HCO3a) 29.2 mEq/L (22-28); CO2 Tension 53.8 mmHg (35.0-45.0); Carboxyhemoglobin (COHb) 0.3 gm% (0.0-3.0); Hemoglobin (Hb) 8.9 g/dL (12.0-16.0); O2 Tension (PaO2), arterial 107.1 mmHg (> 70.0); Potassium - ABG Lab 3.9 mmol/L (3.70-5.30); Puncture Site RBA; pH, Arterial 7.35 (7.35-7.45)
[2022-07-06] MEDS: methylPREDNISolone Sod Succ/PF 125 MG/2 ML VIAL IVP SCH ×2 (08:35→22:00)
[2022-07-06] MEDS: Polyethylene Glycol 3350 17 GM Packet PO SCH (08:37)
[2022-07-06] MEDS: Ascorbic Acid 500 mg Chewable Tablet PER TUBE SCH (08:38)
[2022-07-06] MEDS: Lansoprazole 3 MG/ML ORAL SUSPENSION PER TUBE SCH (08:38)
[2022-07-06] MEDS: Zinc Sulfate 220 MG CAP PER TUBE SCH (08:38)
[2022-07-06] MEDS: Propofol 1,000 MG/100 ML VIAL IV PRN ×2 (10:30→18:17)
[2022-07-06] MEDS ORDERED: Sodium Chloride 0.9% 100 ML ONE (11:48)
[2022-07-06] MEDS ORDERED: cefTRIAXone\\ROCEPHIN 1 GM VIAL ONE (11:48)
[2022-07-06] MEDS: cefTRIAXone\\ROCEPHIN 1 GM in Sodium Chloride 0.9% 100 ML IVPB SCH (11:49)
[2022-07-06] MEDS: Atorvastatin Calcium 10 MG TAB PO SCH (22:00)
[2022-07-07] MEDS: Propofol 1,000 MG/100 ML VIAL IV PRN ×3 (03:27→18:32)
[2022-07-07] MEDS: fentaNYL Citrate-0.9 % NaCl/PF 100 ML IVPB SCH (05:18)
[2022-07-07 06:02] LABS: Hemoglobin 8.1 g/dL (12.0-15.5); Mean Corpuscular HGB CONC 31.3 g/dL (32.0-36.0); Mean Corpuscular Hemoglobin 31.3 pg (27.0-33.0); Mean Platelet Volume 10.1 fl (7.4-10.4); Platelet Count 243 10x3/uL (150-450); RBC Distribution Width 15.5 % (11.5-14.5); Red Blood Cell (RBC) Count 2.59 10x6/uL (3.90-5.03); White Blood Cell (WBC) Count 6.4 10x3/uL (3.5-10.5)
[2022-07-07 06:04] LABS: Anion Gap 13 mmol/L (10-20); BUN (Urea Nitrogen) 20 mg/dL (9.8-20.1); Calc. Creatinine Clearance 71 mL/min (70-130); Calcium 8.7 mg/dL (7.8-10.44); Carbon Dioxide 28 mmol/L (23-31); Chloride 106 mmol/L (98-107); Estimated GFR 97; Glucose 126 mg/dL (83-110); Potassium 3.8 mmol/L (3.5-5.1); Sodium 143 mmol/L (136-145)
[2022-07-07 06:58] LABS: MDiff Complete? YES
[2022-07-07 07:01] LABS: Band 4 % (5-11); Lymphocytes 5 % (21-51); Monocytes 3 % (0-10); Neutrophil 88 % (42-75)
[2022-07-07 07:02] LABS: Hypochromia MODERATE=16-30 cells (100X) (0-5/hpf)
[2022-07-07 07:03] LABS: Platelet Morphology Comment Appears Adequate
[2022-07-07] MEDS: Polyethylene Glycol 3350 17 GM Packet PO SCH (08:24)
[2022-07-07] MEDS: methylPREDNISolone Sod Succ/PF 125 MG/2 ML VIAL IVP SCH ×2 (08:25→22:00)
[2022-07-07] MEDS: Ascorbic Acid 500 mg Chewable Tablet PER TUBE SCH (08:25)
[2022-07-07] MEDS: Zinc Sulfate 220 MG CAP PER TUBE SCH (08:25)
[2022-07-07] MEDS: Lansoprazole 3 MG/ML ORAL SUSPENSION PER TUBE SCH (08:26)
[2022-07-07] MEDS: cefTRIAXone\\ROCEPHIN 1 GM in Sodium Chloride 0.9% 100 ML IVPB SCH (11:37)
[2022-07-07 14:28] LABS: Vancomycin, Trough 18.2 ug/mL
[2022-07-07] MEDS: Vancomycin HCl 500 MG in Sodium Chloride 0.9% 250 ML 250 ML IVPB SCH (15:55)
[2022-07-07] MEDS: Atorvastatin Calcium 10 MG TAB PO SCH (22:00)
[2022-07-08 03:08] LABS: #Monocytes 0.3 10x3/uL (0.0-1.1); #Neutrophils 3.1 10x3/uL (1.5-8.4); %Eosinophils 0.9 % (0.0-6.0); %Lymphocytes 20.1 % (18.0-47.0); %Monocytes 7.6 % (0.0-10.0); %Neutrophils 70.9 % (40.0-75.0); Hemoglobin 7.5 g/dL (12.0-15.5); Mean Corpuscular HGB CONC 31.4 g/dL (32.0-36.0); Mean Corpuscular Hemoglobin 31.4 pg (27.0-33.0); Mean Platelet Volume 9.9 fl (7.4-10.4); Platelet Count 208 10x3/uL (150-450); RBC Distribution Width 15.3 % (11.5-14.5); Red Blood Cell (RBC) Count 2.39 10x6/uL (3.90-5.03); White Blood Cell (WBC) Count 4.3 10x3/uL (3.5-10.5)
[2022-07-08] MEDS: fentaNYL Citrate-0.9 % NaCl/PF 100 ML IVPB SCH (03:45)
[2022-07-08] MEDS: Propofol 1,000 MG/100 ML VIAL IV PRN ×2 (04:00→14:37)
[2022-07-08 04:17] LABS: Anion Gap 11 mmol/L (10-20); BUN (Urea Nitrogen) 18 mg/dL (9.8-20.1); Calc. Creatinine Clearance 81 mL/min (70-130); Calcium 8.6 mg/dL (7.8-10.44); Carbon Dioxide 29 mmol/L (23-31); Chloride 107 mmol/L (98-107); Estimated GFR 100; Glucose 93 mg/dL (83-110); Potassium 3.6 mmol/L (3.5-5.1); Sodium 143 mmol/L (136-145)
[2022-07-08] MEDS: Vancomycin HCl 500 MG in Sodium Chloride 0.9% 250 ML 250 ML IVPB SCH (08:22)
[2022-07-08] MEDS: Ascorbic Acid 500 mg Chewable Tablet PER TUBE SCH (08:22)
[2022-07-08] MEDS: methylPREDNISolone Sod Succ/PF 125 MG/2 ML VIAL IVP SCH ×2 (08:22→21:32)
[2022-07-08] MEDS: Zinc Sulfate 220 MG CAP PER TUBE SCH (08:22)
[2022-07-08] MEDS: Polyethylene Glycol 3350 17 GM Packet PO SCH (08:23)
[2022-07-08] MEDS: Lansoprazole 3 MG/ML ORAL SUSPENSION PER TUBE SCH (08:23)
[2022-07-08] MEDS: cefTRIAXone\\ROCEPHIN 1 GM in Sodium Chloride 0.9% 100 ML IVPB SCH (12:31)
[2022-07-08] MEDS: Atorvastatin Calcium 10 MG TAB PO SCH (21:31)
[2022-07-09] MEDS: Vancomycin HCl 500 MG in Sodium Chloride 0.9% 250 ML 250 ML IVPB SCH ×2 (02:53→20:34)
[2022-07-09] MEDS: Propofol 1,000 MG/100 ML VIAL IV PRN ×3 (02:53→19:26)
[2022-07-09] MEDS: fentaNYL Citrate-0.9 % NaCl/PF 100 ML IVPB SCH ×2 (03:00→22:02)
[2022-07-09] MEDS: Ascorbic Acid 500 mg Chewable Tablet PER TUBE SCH (08:11)
[2022-07-09] MEDS: Zinc Sulfate 220 MG CAP PER TUBE SCH (08:11)
[2022-07-09] MEDS: Polyethylene Glycol 3350 17 GM Packet PO SCH (08:11)
[2022-07-09] MEDS: Lansoprazole 3 MG/ML ORAL SUSPENSION PER TUBE SCH (08:11)
[2022-07-09] MEDS: methylPREDNISolone Sod Succ/PF 125 MG/2 ML VIAL IVP SCH (08:11)
[2022-07-09 08:14] LABS: #Monocytes 0.6 10x3/uL (0.0-1.1); #Neutrophils 6.3 10x3/uL (1.5-8.4); %Basophils 0.1 % (0.0-2.0); %Eosinophils 0.1 % (0.0-6.0); %Lymphocytes 13.6 % (18.0-47.0); %Monocytes 7.2 % (0.0-10.0); %Neutrophils 78.6 % (40.0-75.0); Hemoglobin 8.3 g/dL (12.0-15.5); Mean Corpuscular HGB CONC 31.4 g/dL (32.0-36.0); Mean Corpuscular Hemoglobin 31.3 pg (27.0-33.0); Mean Corpuscular Volume 99.6 fl (81.6-98.3); Mean Platelet Volume 10.1 fl (7.4-10.4); Platelet Count 230 10x3/uL (150-450); RBC Distribution Width 15.4 % (11.5-14.5); Red Blood Cell (RBC) Count 2.65 10x6/uL (3.90-5.03)
[2022-07-09 08:26] LABS: Anion Gap 15 mmol/L (10-20); BUN (Urea Nitrogen) 18 mg/dL (9.8-20.1); Calc. Creatinine Clearance 80 mL/min (70-130); Calcium 8.7 mg/dL (7.8-10.44); Carbon Dioxide 27 mmol/L (23-31); Chloride 106 mmol/L (98-107); Estimated GFR 97; Glucose 98 mg/dL (83-110); Potassium 3.5 mmol/L (3.5-5.1); Sodium 144 mmol/L (136-145)
[2022-07-09] MEDS ORDERED: Potassium Bicarbonate/Cit Ac 20 MEQ TAB PO SCH (09:00)
[2022-07-09] MEDS ORDERED: Furosemide 40 MG/4 ML VIAL SLOW IVP SCH (10:00)
[2022-07-09] MEDS: Albumin 25% 25 GM/100 ML BOT IVPB SCH ×3 (10:10→22:02)
[2022-07-09] MEDS: cefTRIAXone\\ROCEPHIN 1 GM in Sodium Chloride 0.9% 100 ML IVPB SCH (11:40)
[2022-07-09] MEDS ORDERED: Propofol 1,000 MG/100 ML VIAL IV ONE (19:20)
[2022-07-09] MEDS: Atorvastatin Calcium 10 MG TAB PO SCH (20:34)
[2022-07-09 21:23] LABS: Potassium 3.8 mmol/L (3.5-5.1)
[2022-07-10] MEDS: Albumin 25% 25 GM/100 ML BOT IVPB SCH (03:56)
[2022-07-10] MEDS: Propofol 1,000 MG/100 ML VIAL IV PRN ×3 (03:59→20:36)
[2022-07-10 04:19] LABS: #Monocytes 0.4 10x3/uL (0.0-1.1); #Neutrophils 3.6 10x3/uL (1.5-8.4); %Basophils 0.2 % (0.0-2.0); %Eosinophils 0.8 % (0.0-6.0); %Lymphocytes 20.7 % (18.0-47.0); %Monocytes 7.8 % (0.0-10.0); %Neutrophils 70.1 % (40.0-75.0); Hemoglobin 7.8 g/dL (12.0-15.5); Mean Corpuscular HGB CONC 31.6 g/dL (32.0-36.0); Mean Corpuscular Hemoglobin 31.3 pg (27.0-33.0); Mean Corpuscular Volume 99.2 fl (81.6-98.3); Mean Platelet Volume 10.8 fl (7.4-10.4); Platelet Count 148 10x3/uL (150-450); RBC Distribution Width 15.8 % (11.5-14.5); Red Blood Cell (RBC) Count 2.49 10x6/uL (3.90-5.03); White Blood Cell (WBC) Count 5.1 10x3/uL (3.5-10.5)
[2022-07-10 04:43] LABS: ALT (SGPT) 10 U/L (8-55); AST (SGOT) 9 U/L (5-34); Albumin 3.2 g/dL (3.4-4.8); Alkaline Phosphatase 33 U/L (40-110); Anion Gap 14 mmol/L (10-20); BUN (Urea Nitrogen) 16 mg/dL (9.8-20.1); Bilirubin, Total 0.3 mg/dL (0.2-1.2); Calc. Creatinine Clearance 80 mL/min (70-130); Calcium 8.8 mg/dL (7.8-10.44); Carbon Dioxide 31 mmol/L (23-31); Chloride 102 mmol/L (98-107); Estimated GFR 97; Globulin 2.8 g/dL (2.4-3.5); Glucose 83 mg/dL (83-110); Magnesium 1.5 mg/dL (1.6-2.6); Potassium 3.6 mmol/L (3.5-5.1); Sodium 143 mmol/L (136-145)
[2022-07-10] MEDS ORDERED: Furosemide 20 MG/2 ML VIAL SLOW IVP SCH (05:00)
[2022-07-10] MEDS ORDERED: Magnesium 2 GM/50 ML(in water) 2 GM in Premix Bag 1 BAG IVPB SCH (05:00)
[2022-07-10] MEDS: methylPREDNISolone Sod Succ 40 MG VIAL IVP SCH (08:19)
[2022-07-10] MEDS: Polyethylene Glycol 3350 17 GM Packet PO SCH (08:19)
[2022-07-10] MEDS: Ascorbic Acid 500 mg Chewable Tablet PER TUBE SCH (08:19)
[2022-07-10] MEDS: Zinc Sulfate 220 MG CAP PER TUBE SCH (08:19)
[2022-07-10] MEDS: Lansoprazole 3 MG/ML ORAL SUSPENSION PER TUBE SCH (12:34)
[2022-07-10] MEDS: cefTRIAXone\\ROCEPHIN 1 GM in Sodium Chloride 0.9% 100 ML IVPB SCH (12:59)
[2022-07-10 14:52] LABS: Vancomycin, Trough 16.2 ug/mL
[2022-07-10] MEDS: Vancomycin HCl 500 MG in Sodium Chloride 0.9% 250 ML 250 ML IVPB SCH (14:58)
[2022-07-10] MEDS: fentaNYL Citrate-0.9 % NaCl/PF 100 ML IVPB SCH (17:50)
[2022-07-10] MEDS: Atorvastatin Calcium 10 MG TAB PO SCH (20:36)
[2022-07-11 04:29] LABS: #Eosinphils 0.1 10x3/uL (0.0-0.5); #Monocytes 0.4 10x3/uL (0.0-1.1); %Basophils 0.2 % (0.0-2.0); %Eosinophils 1.6 % (0.0-6.0); %Lymphocytes 22.6 % (18.0-47.0); %Monocytes 7.9 % (0.0-10.0); %Neutrophils 67.2 % (40.0-75.0); Hemoglobin 7.2 g/dL (12.0-15.5); Mean Corpuscular HGB CONC 30.9 g/dL (32.0-36.0); Mean Corpuscular Hemoglobin 30.1 pg (27.0-33.0); Mean Corpuscular Volume 97.5 fl (81.6-98.3); Mean Platelet Volume 10.2 fl (7.4-10.4); Platelet Count 191 10x3/uL (150-450); RBC Distribution Width 15.5 % (11.5-14.5); Red Blood Cell (RBC) Count 2.39 10x6/uL (3.90-5.03); White Blood Cell (WBC) Count 4.4 10x3/uL (3.5-10.5)
[2022-07-11 04:42] LABS: Anion Gap 15 mmol/L (10-20); BUN (Urea Nitrogen) 12 mg/dL (9.8-20.1); Calc. Creatinine Clearance 76 mL/min (70-130); Calcium 8.7 mg/dL (7.8-10.44); Carbon Dioxide 33 mmol/L (23-31); Chloride 99 mmol/L (98-107); Estimated GFR 98; Glucose 69 mg/dL (83-110); Magnesium 1.8 mg/dL (1.6-2.6); Potassium 3.2 mmol/L (3.5-5.1); Sodium 144 mmol/L (136-145)
[2022-07-11] MEDS ORDERED: Magnesium 2 GM/50 ML(in water) 2 GM in Premix Bag 1 BAG IVPB SCH (05:00)
[2022-07-11] MEDS ORDERED: Potassium Bicarbonate/Cit Ac 20 MEQ TAB PO SCH (05:00)
[2022-07-11] MEDS: Propofol 1,000 MG/100 ML VIAL IV PRN ×2 (05:01→11:35)
[2022-07-11] MEDS: Vancomycin HCl 500 MG in Sodium Chloride 0.9% 250 ML 250 ML IVPB SCH (08:46)
[2022-07-11] MEDS: methylPREDNISolone Sod Succ 40 MG VIAL IVP SCH (08:47)
[2022-07-11] MEDS: Zinc Sulfate 220 MG CAP PER TUBE SCH (09:21)
[2022-07-11] MEDS: Lansoprazole 3 MG/ML ORAL SUSPENSION PER TUBE SCH (09:21)
[2022-07-11] MEDS: Ascorbic Acid 500 mg Chewable Tablet PER TUBE SCH (09:21)
[2022-07-11] MEDS: Polyethylene Glycol 3350 17 GM Packet PO SCH (09:21)
[2022-07-11] MEDS: cefTRIAXone\\ROCEPHIN 1 GM in Sodium Chloride 0.9% 100 ML IVPB SCH (11:35)
[2022-07-11] MEDS ORDERED: Midazolam HCl 2 mg/2 ml Vial ONE (12:37)
[2022-07-11] MEDS ORDERED: PROPOFOL 0 ML ONE (12:37)
[2022-07-11] MEDS ORDERED: Rocuronium Bromide 10 MG/ML (10ML VIAL) ONE (12:37)
[2022-07-11] MEDS ORDERED: Bupivacaine 0.25% HCL 30 ML VIAL ONE (12:37)
[2022-07-11] MEDS ORDERED: EPINEPHrine 1 MG/ML AMP ONE (12:38)
[2022-07-11] MEDS ORDERED: Lidocaine 1% PF 5 ML VIAL ONE (13:18)
[2022-07-11] MEDS ORDERED: Fentanyl 100 MCG/2 ML VIAL ONE (13:41)
[2022-07-11] MEDS ORDERED: hydrALAZINE 20 MG/ML VIAL SLOW IVP PRN (14:43)
[2022-07-11] MEDS: Labetalol HCl 100 MG/20 ML VIAL SLOW IVP PRN (15:05)
[2022-07-11] MEDS: fentaNYL Citrate-0.9 % NaCl/PF 100 ML IVPB SCH (15:28)
[2022-07-11] MEDS: Atorvastatin Calcium 10 MG TAB PO SCH (20:07)
[2022-07-12 03:56] LABS: Magnesium 2.1 mg/dL (1.6-2.6); Potassium 4.2 mmol/L (3.5-5.1)
[2022-07-12] MEDS: Propofol 1,000 MG/100 ML VIAL IV PRN (06:45)
[2022-07-12] MEDS: methylPREDNISolone Sod Succ 40 MG VIAL IVP SCH (08:33)
[2022-07-12] MEDS: Ascorbic Acid 500 mg Chewable Tablet PER TUBE SCH (08:34)
[2022-07-12] MEDS: Lansoprazole 3 MG/ML ORAL SUSPENSION PER TUBE SCH (08:34)
[2022-07-12] MEDS: Polyethylene Glycol 3350 17 GM Packet PO SCH (08:34)
[2022-07-12] MEDS: Zinc Sulfate 220 MG CAP PER TUBE SCH (08:35)
[2022-07-12] MEDS: Labetalol HCl 100 MG/20 ML VIAL SLOW IVP PRN ×2 (10:08→18:08)
[2022-07-12] MEDS: Acetaminophen 325 MG TAB PO PRN ×2 (11:50→20:01)
[2022-07-12] MEDS: fentaNYL Citrate-0.9 % NaCl/PF 100 ML IVPB SCH (14:19)
[2022-07-12] MEDS: Atorvastatin Calcium 10 MG TAB PO SCH (20:01)
[2022-07-13] MEDS: fentaNYL Citrate-0.9 % NaCl/PF 100 ML IVPB SCH ×2 (02:06→13:22)
[2022-07-13] MEDS: Polyethylene Glycol 3350 17 GM Packet PO SCH (08:15)
[2022-07-13] MEDS: methylPREDNISolone Sod Succ 40 MG VIAL IVP SCH (08:16)
[2022-07-13] MEDS: Zinc Sulfate 220 MG CAP PER TUBE SCH (08:16)
[2022-07-13] MEDS: Ascorbic Acid 500 mg Chewable Tablet PER TUBE SCH (08:16)
[2022-07-13] MEDS: Lansoprazole 3 MG/ML ORAL SUSPENSION PER TUBE SCH (08:27)
[2022-07-13] MEDS: Acetaminophen 325 MG TAB PO PRN (08:27)
[2022-07-13] MEDS: Dexmedetomidine In 0.9 % NaCl 400 MCG in Premix Bag 1 BAG IVPB SCH (10:27)
[2022-07-13] MEDS: Atorvastatin Calcium 10 MG TAB PO SCH (20:05)
[2022-07-14] MEDS: Dexmedetomidine In 0.9 % NaCl 400 MCG in Premix Bag 1 BAG IVPB SCH (00:27)
[2022-07-14 04:45] LABS: #Monocytes 0.3 10x3/uL (0.0-1.1); #Neutrophils 8.3 10x3/uL (1.5-8.4); %Basophils 0.1 % (0.0-2.0); %Eosinophils 0.2 % (0.0-6.0); %Lymphocytes 11.2 % (18.0-47.0); %Monocytes 3.3 % (0.0-10.0); %Neutrophils 84.8 % (40.0-75.0); Mean Corpuscular HGB CONC 31.5 g/dL (32.0-36.0); Mean Corpuscular Hemoglobin 30.8 pg (27.0-33.0); Mean Corpuscular Volume 97.8 fl (81.6-98.3); Mean Platelet Volume 10.3 fl (7.4-10.4); Platelet Count 236 10x3/uL (150-450); RBC Distribution Width 15.9 % (11.5-14.5); Red Blood Cell (RBC) Count 2.27 10x6/uL (3.90-5.03); White Blood Cell (WBC) Count 9.7 10x3/uL (3.5-10.5)
[2022-07-14 04:53] LABS: Anion Gap 12 mmol/L (10-20); BUN (Urea Nitrogen) 18 mg/dL (9.8-20.1); Calc. Creatinine Clearance 75 mL/min (70-130); Calcium 8.1 mg/dL (7.8-10.44); Carbon Dioxide 34 mmol/L (23-31); Chloride 98 mmol/L (98-107); Estimated GFR 97; Glucose 129 mg/dL (83-110); Potassium 3.3 mmol/L (3.5-5.1); Sodium 141 mmol/L (136-145)
[2022-07-14] MEDS: fentaNYL Citrate-0.9 % NaCl/PF 100 ML IVPB SCH ×2 (07:47→23:04)
[2022-07-14] MEDS: Ascorbic Acid 500 mg Chewable Tablet PER TUBE SCH (07:50)
[2022-07-14] MEDS: Zinc Sulfate 220 MG CAP PER TUBE SCH (07:50)
[2022-07-14] MEDS: methylPREDNISolone Sod Succ 40 MG VIAL IVP SCH (07:51)
[2022-07-14] MEDS: Polyethylene Glycol 3350 17 GM Packet PO SCH (07:54)
[2022-07-14] MEDS: Lansoprazole 3 MG/ML ORAL SUSPENSION PER TUBE SCH (07:54)
[2022-07-14] MEDS ORDERED: Potassium Bicarbonate/Cit Ac 20 MEQ TAB PO SCH (08:00)
[2022-07-14] MEDS: Acetaminophen 325 MG TAB PO PRN ×2 (08:11→21:01)
[2022-07-14] MEDS: Labetalol HCl 100 MG/20 ML VIAL SLOW IVP PRN (12:19)
[2022-07-14 13:31] LABS: Potassium 4.2 mmol/L (3.5-5.1)
[2022-07-14] MEDS ORDERED: Furosemide 40 MG/4 ML VIAL SLOW IVP SCH (13:45)
[2022-07-14 19:32] LABS: Anion Gap 15 mmol/L (10-20); BUN (Urea Nitrogen) 20 mg/dL (9.8-20.1); Calc. Creatinine Clearance 72 mL/min (70-130); Calcium 8.3 mg/dL (7.8-10.44); Carbon Dioxide 32 mmol/L (23-31); Chloride 97 mmol/L (98-107); Estimated GFR 96; Glucose 151 mg/dL (83-110); Magnesium 1.8 mg/dL (1.6-2.6); Potassium 4.4 mmol/L (3.5-5.1); Sodium 140 mmol/L (136-145)
[2022-07-14] MEDS ORDERED: Magnesium 2 GM/50 ML(in water) 2 GM in Premix Bag 1 BAG IVPB SCH (20:00)
[2022-07-14] MEDS: Atorvastatin Calcium 10 MG TAB PO SCH (20:59)
[2022-07-14] MEDS: Propofol 1,000 MG/100 ML VIAL IV PRN (21:36)
[2022-07-15 04:39] LABS: #Monocytes 0.4 10x3/uL (0.0-1.1); %Basophils 0.1 % (0.0-2.0); %Eosinophils 0.2 % (0.0-6.0); %Lymphocytes 10.3 % (18.0-47.0); Hemoglobin 6.8 g/dL (12.0-15.5); Mean Corpuscular HGB CONC 30.9 g/dL (32.0-36.0); Mean Corpuscular Hemoglobin 30.8 pg (27.0-33.0); Mean Corpuscular Volume 99.5 fl (81.6-98.3); Mean Platelet Volume 10.3 fl (7.4-10.4); Platelet Count 271 10x3/uL (150-450); RBC Distribution Width 16.1 % (11.5-14.5); Red Blood Cell (RBC) Count 2.21 10x6/uL (3.90-5.03); White Blood Cell (WBC) Count 9.4 10x3/uL (3.5-10.5)
[2022-07-15 04:52] LABS: Anion Gap 13 mmol/L (10-20); BUN (Urea Nitrogen) 22 mg/dL (9.8-20.1); Calc. Creatinine Clearance 67 mL/min (70-130); Calcium 8.2 mg/dL (7.8-10.44); Carbon Dioxide 36 mmol/L (23-31); Chloride 96 mmol/L (98-107); Estimated GFR 96; Glucose 114 mg/dL (83-110); Magnesium 2.5 mg/dL (1.6-2.6); Potassium 3.7 mmol/L (3.5-5.1); Sodium 141 mmol/L (136-145)
[2022-07-15] MEDS: Zinc Sulfate 220 MG CAP PER TUBE SCH (07:59)
[2022-07-15] MEDS: Acetaminophen 325 MG TAB PO PRN (08:00)
[2022-07-15] MEDS ORDERED: Potassium Phosphate 30 MMOL in Sodium Chloride 0.9% 250 ML 250 ML IVPB SCH (08:00)
[2022-07-15] MEDS: Ascorbic Acid 500 mg Chewable Tablet PER TUBE SCH (08:00)
[2022-07-15] MEDS: Lansoprazole 3 MG/ML ORAL SUSPENSION PER TUBE SCH (08:01)
[2022-07-15] MEDS: Polyethylene Glycol 3350 17 GM Packet PO SCH (08:01)
[2022-07-15] MEDS: Propofol 1,000 MG/100 ML VIAL IV PRN (08:27)
[2022-07-15] MEDS ORDERED: Furosemide 40 MG/4 ML VIAL SLOW IVP SCH (10:30)
[2022-07-15] MEDS: fentaNYL Citrate-0.9 % NaCl/PF 100 ML IVPB SCH (11:19)
[2022-07-15 12:15] LABS: Hemoglobin 8.5 g/dL (12.0-15.5)
[2022-07-15] MEDS: Atorvastatin Calcium 10 MG TAB PO SCH (20:57)
[2022-07-15] MEDS: oxyCODONE 5 MG TAB PO SCH (21:13)
[2022-07-15] MEDS: Acetaminophen 325 MG TAB PO SCH (21:14)
[2022-07-16] MEDS: fentaNYL Citrate-0.9 % NaCl/PF 100 ML IVPB SCH ×2 (01:54→14:32)
[2022-07-16 04:17] LABS: Phosphorus 3.2 mg/dL (2.3-4.7)
[2022-07-16] MEDS: oxyCODONE 5 MG TAB PO SCH ×3 (06:20→17:57)
[2022-07-16] MEDS: Acetaminophen 325 MG TAB PO SCH ×4 (06:20→17:57)
[2022-07-16] MEDS ORDERED: oxyCODONE 5 MG TAB PO SCH (06:30)
[2022-07-16] MEDS: Ascorbic Acid 500 mg Chewable Tablet PER TUBE SCH (08:57)
[2022-07-16] MEDS: Zinc Sulfate 220 MG CAP PER TUBE SCH (08:58)
[2022-07-16] MEDS: Lansoprazole 3 MG/ML ORAL SUSPENSION PER TUBE SCH (08:58)
[2022-07-16] MEDS: Propofol 1,000 MG/100 ML VIAL IV PRN (08:58)
[2022-07-16] MEDS: Polyethylene Glycol 3350 17 GM Packet PO SCH (11:24)
[2022-07-16] MEDS: Furosemide 40 MG/4 ML VIAL SLOW IVP SCH (14:32)
[2022-07-16] MEDS ORDERED: Propofol BOLUS 1,000 MG/100 ML VIAL IV PRN (19:30)
[2022-07-16] MEDS ORDERED: Propofol 1,000 MG/100 ML VIAL IV PRN (19:30)
[2022-07-16] MEDS ORDERED: Fentanyl BOLUS 250 ML IVPB PRN (19:30)
[2022-07-16] MEDS ORDERED: fentaNYL Citrate-0.9 % NaCl/PF 100 ML IVPB SCH (19:30)
[2022-07-16] MEDS: Atorvastatin Calcium 10 MG TAB PO SCH (20:03)
[2022-07-16] MEDS: Lorazepam 2 MG/ML VIAL SLOW IVP PRN (21:52)
[2022-07-17] MEDS: Acetaminophen 325 MG TAB PO PRN (01:07)
[2022-07-17] MEDS: Acetaminophen 325 MG TAB PO SCH ×3 (01:12→19:14)
[2022-07-17] MEDS: oxyCODONE 5 MG TAB PO SCH ×2 (02:36→05:30)
[2022-07-17 04:10] LABS: #Monocytes 0.3 10x3/uL (0.0-1.1); #Neutrophils 5.3 10x3/uL (1.5-8.4); %Basophils 0.3 % (0.0-2.0); %Eosinophils 0.3 % (0.0-6.0); %Lymphocytes 12.7 % (18.0-47.0); %Monocytes 5.1 % (0.0-10.0); %Neutrophils 81.3 % (40.0-75.0); Hemoglobin 7.9 g/dL (12.0-15.5); Mean Corpuscular HGB CONC 31.6 g/dL (32.0-36.0); Mean Corpuscular Hemoglobin 30.7 pg (27.0-33.0); Mean Corpuscular Volume 97.3 fl (81.6-98.3); Platelet Count 261 10x3/uL (150-450); Red Blood Cell (RBC) Count 2.57 10x6/uL (3.90-5.03); White Blood Cell (WBC) Count 6.5 10x3/uL (3.5-10.5)
[2022-07-17 04:22] LABS: Anion Gap 13 mmol/L (10-20); BUN (Urea Nitrogen) 22 mg/dL (9.8-20.1); Calc. Creatinine Clearance 70 mL/min (70-130); Calcium 8.3 mg/dL (7.8-10.44); Carbon Dioxide 35 mmol/L (23-31); Chloride 95 mmol/L (98-107); Estimated GFR 96; Glucose 116 mg/dL (83-110); Sodium 139 mmol/L (136-145)
[2022-07-17] MEDS: Furosemide 40 MG/4 ML VIAL SLOW IVP SCH (06:03)
[2022-07-17] MEDS: Lansoprazole 3 MG/ML ORAL SUSPENSION PER TUBE SCH (08:45)
[2022-07-17] MEDS: Ascorbic Acid 500 mg Chewable Tablet PER TUBE SCH (08:45)
[2022-07-17] MEDS: Zinc Sulfate 220 MG CAP PER TUBE SCH (08:45)
[2022-07-17] MEDS ORDERED: Sodium Bicarbonate 2.5 MEQ/5 ML VIAL ONE (09:13)
[2022-07-17] MEDS ORDERED: Lidocaine 1% PF 5 ML VIAL ONE (09:13)
[2022-07-17] MEDS: Dexmedetomidine In 0.9 % NaCl 400 MCG in Premix Bag 1 BAG IVPB SCH ×2 (09:16→18:01)
[2022-07-17] MEDS: Polyethylene Glycol 3350 17 GM Packet PO SCH (11:39)
[2022-07-17] MEDS: Lorazepam 2 MG/ML VIAL SLOW IVP PRN (12:28)
[2022-07-17] MEDS: Atorvastatin Calcium 10 MG TAB PO SCH (21:52)
[2022-07-18 03:56] LABS: Actual Bicarbonate (HCO3a) 35.8 mEq/L (22-28); Base Excess (BEa) 11.7 mEq/L (-2.0 to +3.0); CO2 Tension 45.6 mmHg (35.0-45.0); Calcium, Ionized (arterial) 1.14 mmol/L (1.12-1.30); Carboxyhemoglobin (COHb) 0.4 gm% (0.0-3.0); Critical Notified Whom: RN; Hemoglobin (Hb) 7.9 g/dL (12.0-16.0); O2 Tension (PaO2), arterial 90.1 mmHg (> 70.0); Potassium - ABG Lab 3.4 mmol/L (3.70-5.30); Puncture Site RRA; pH, Arterial 7.51 (7.35-7.45)
[2022-07-18 04:06] LABS: Magnesium 1.7 mg/dL (1.6-2.6); Phosphorus 3.4 mg/dL (2.3-4.7)
[2022-07-18] MEDS: Dexmedetomidine In 0.9 % NaCl 400 MCG in Premix Bag 1 BAG IVPB SCH ×3 (04:18→23:42)
[2022-07-18] MEDS ORDERED: Magnesium 2 GM/50 ML(in water) 2 GM in Premix Bag 1 BAG IVPB SCH (04:30)
[2022-07-18] MEDS: Lansoprazole 3 MG/ML ORAL SUSPENSION PER TUBE SCH (08:27)
[2022-07-18] MEDS: Ascorbic Acid 500 mg Chewable Tablet PER TUBE SCH (08:28)
[2022-07-18] MEDS: Zinc Sulfate 220 MG CAP PER TUBE SCH (08:28)
[2022-07-18] MEDS: Polyethylene Glycol 3350 17 GM Packet PO SCH (09:20)
[2022-07-18] MEDS ORDERED: Iopamidol 300 61% 100 ML VIAL FS ONE (09:31)
[2022-07-18] MEDS: Lorazepam 2 MG/ML VIAL SLOW IVP PRN ×2 (14:16→23:57)
[2022-07-18] MEDS: Atorvastatin Calcium 10 MG TAB PO SCH (21:24)
[2022-07-19 03:49] LABS: #Monocytes 0.2 10x3/uL (0.0-1.1); %Basophils 0.2 % (0.0-2.0); %Eosinophils 0.5 % (0.0-6.0); %Monocytes 5.7 % (0.0-10.0); %Neutrophils 71.4 % (40.0-75.0); Mean Corpuscular Hemoglobin 30.6 pg (27.0-33.0); Mean Corpuscular Volume 98.7 fl (81.6-98.3); Mean Platelet Volume 10.6 fl (7.4-10.4); Platelet Count 252 10x3/uL (150-450); Red Blood Cell (RBC) Count 2.29 10x6/uL (3.90-5.03); White Blood Cell (WBC) Count 4.2 10x3/uL (3.5-10.5)
[2022-07-19 04:05] LABS: Anion Gap 15 mmol/L (10-20); BUN (Urea Nitrogen) 34 mg/dL (9.8-20.1); Calc. Creatinine Clearance 60 mL/min (70-130); Calcium 8.5 mg/dL (7.8-10.44); Carbon Dioxide 31 mmol/L (23-31); Chloride 99 mmol/L (98-107); Estimated GFR 94; Glucose 126 mg/dL (83-110); Magnesium 2.2 mg/dL (1.6-2.6); Potassium 3.9 mmol/L (3.5-5.1); Sodium 141 mmol/L (136-145)
[2022-07-19] MEDS: Lansoprazole 3 MG/ML ORAL SUSPENSION PER TUBE SCH (09:00)
[2022-07-19] MEDS: Zinc Sulfate 220 MG CAP PER TUBE SCH (09:01)
[2022-07-19] MEDS: Ascorbic Acid 500 mg Chewable Tablet PER TUBE SCH (09:01)
[2022-07-19] MEDS: Dexmedetomidine In 0.9 % NaCl 400 MCG in Premix Bag 1 BAG IVPB SCH ×3 (09:02→23:45)
[2022-07-19] MEDS: Acetaminophen 325 MG TAB PO PRN (09:06)
[2022-07-19] MEDS: Polyethylene Glycol 3350 17 GM Packet PO SCH (12:38)
[2022-07-19] MEDS: Atorvastatin Calcium 10 MG TAB PO SCH (21:37)
[2022-07-20 04:10] LABS: #Monocytes 0.4 10x3/uL (0.0-1.1); %Basophils 0.2 % (0.0-2.0); %Eosinophils 0.2 % (0.0-6.0); %Monocytes 8.3 % (0.0-10.0); %Neutrophils 70.1 % (40.0-75.0); Mean Corpuscular HGB CONC 31.3 g/dL (32.0-36.0); Mean Corpuscular Hemoglobin 31.1 pg (27.0-33.0); Mean Corpuscular Volume 99.6 fl (81.6-98.3); Mean Platelet Volume 10.2 fl (7.4-10.4); Platelet Count 273 10x3/uL (150-450); RBC Distribution Width 16.8 % (11.5-14.5); Red Blood Cell (RBC) Count 2.25 10x6/uL (3.90-5.03); White Blood Cell (WBC) Count 4.2 10x3/uL (3.5-10.5)
[2022-07-20 04:30] LABS: Anion Gap 15 mmol/L (10-20); BUN (Urea Nitrogen) 36 mg/dL (9.8-20.1); Calc. Creatinine Clearance 65 mL/min (70-130); Calcium 8.5 mg/dL (7.8-10.44); Carbon Dioxide 32 mmol/L (23-31); Chloride 100 mmol/L (98-107); Estimated GFR 96; Glucose 116 mg/dL (83-110); Magnesium 2.1 mg/dL (1.6-2.6); Potassium 3.4 mmol/L (3.5-5.1); Sodium 144 mmol/L (136-145)
[2022-07-20] MEDS ORDERED: Potassium Chloride 40 MEQ in Premix Bag 1 BAG IVPB SCH (05:30)
[2022-07-20] MEDS: Ascorbic Acid 500 mg Chewable Tablet PER TUBE SCH (07:55)
[2022-07-20] MEDS: Zinc Sulfate 220 MG CAP PER TUBE SCH (07:56)
[2022-07-20] MEDS: Polyethylene Glycol 3350 17 GM Packet PO SCH (07:57)
[2022-07-20] MEDS ORDERED: Lidocaine 2% 6 ML SYR TOP SCH (08:00)
[2022-07-20] MEDS: Lansoprazole 3 MG/ML ORAL SUSPENSION PER TUBE SCH (08:01)
[2022-07-20] MEDS: Morphine 2 MG/ML VIAL SLOW IVP PRN ×3 (08:16→16:23)
[2022-07-20] MEDS: Dexmedetomidine In 0.9 % NaCl 400 MCG in Premix Bag 1 BAG IVPB SCH ×2 (12:08→21:31)
[2022-07-20 12:22] LABS: Bilirubin Neg (Negative); Blood, Urine 25 (Negative); Clarity Cloudy (Clear); Glucose, Urine (Dipstick) Normal (Negative); Ketone, Urine Negative (Negative); Leukocyte 500 (Negative); Nitrite Negative (Negative); Protein, Urine (Dipstick) 30 mg/dl (Neg-Trace)
[2022-07-20 12:29] LABS: WBC/HPF 21-50 HPF (0-3)
[2022-07-20 12:30] LABS: Bacteria/HPF 1+ HPF (None Seen); Squamous Epithelial 0-3 HPF (0-3); Transitional Epithelial 0-3 HPF (None Seen); Yeast-Budding 1+ HPF (None Seen)
[2022-07-20 12:31] LABS: Yeast-Hyphae 2+ HPF (None Seen)
[2022-07-20] MEDS: Atorvastatin Calcium 10 MG TAB PO SCH (20:29)
[2022-07-21] MEDS: Acetaminophen 325 MG TAB PO PRN (02:44)
[2022-07-21] MEDS: Lorazepam 2 MG/ML VIAL SLOW IVP PRN ×2 (02:56→21:47)
[2022-07-21] MEDS: Dexmedetomidine In 0.9 % NaCl 400 MCG in Premix Bag 1 BAG IVPB SCH ×3 (06:24→21:46)
[2022-07-21] MEDS: Ascorbic Acid 500 mg Chewable Tablet PER TUBE SCH (08:49)
[2022-07-21] MEDS: Zinc Sulfate 220 MG CAP PER TUBE SCH (08:49)
[2022-07-21] MEDS: Lansoprazole 3 MG/ML ORAL SUSPENSION PER TUBE SCH (08:50)
[2022-07-21] MEDS: Polyethylene Glycol 3350 17 GM Packet PO SCH (08:53)
[2022-07-21] MEDS: Morphine 2 MG/ML VIAL SLOW IVP PRN ×4 (09:45→20:38)
[2022-07-21] MEDS: Atorvastatin Calcium 10 MG TAB PO SCH (20:38)
[2022-07-22 04:46] LABS: #Monocytes 0.3 10x3/uL (0.0-1.1); #Neutrophils 3.9 10x3/uL (1.5-8.4); %Basophils 0.2 % (0.0-2.0); %Eosinophils 0.2 % (0.0-6.0); %Lymphocytes 17.4 % (18.0-47.0); %Monocytes 6.6 % (0.0-10.0); %Neutrophils 75.4 % (40.0-75.0); Hemoglobin 6.2 g/dL (12.0-15.5); Mean Corpuscular HGB CONC 29.8 g/dL (32.0-36.0); Mean Corpuscular Hemoglobin 30.4 pg (27.0-33.0); Mean Platelet Volume 10.2 fl (7.4-10.4); Platelet Count 273 10x3/uL (150-450); RBC Distribution Width 16.5 % (11.5-14.5); Red Blood Cell (RBC) Count 2.04 10x6/uL (3.90-5.03); White Blood Cell (WBC) Count 5.2 10x3/uL (3.5-10.5)
[2022-07-22 05:08] LABS: Anion Gap 15 mmol/L (10-20); BUN (Urea Nitrogen) 32 mg/dL (9.8-20.1); Calc. Creatinine Clearance 65 mL/min (70-130); Calcium 8.4 mg/dL (7.8-10.44); Carbon Dioxide 29 mmol/L (23-31); Chloride 102 mmol/L (98-107); Estimated GFR 94; Glucose 141 mg/dL (83-110); Potassium 3.8 mmol/L (3.5-5.1); Sodium 142 mmol/L (136-145)
[2022-07-22] MEDS ORDERED: Magnesium 2 GM/50 ML(in water) 2 GM in Premix Bag 1 BAG IVPB SCH (06:00)
[2022-07-22] MEDS: Polyethylene Glycol 3350 17 GM Packet PO SCH (08:02)
[2022-07-22] MEDS: Lorazepam 2 MG/ML VIAL SLOW IVP PRN (08:02)
[2022-07-22] MEDS: Ascorbic Acid 500 mg Chewable Tablet PER TUBE SCH (08:02)
[2022-07-22] MEDS: Zinc Sulfate 220 MG CAP PER TUBE SCH (08:02)
[2022-07-22] MEDS: Morphine 2 MG/ML VIAL SLOW IVP PRN ×5 (08:03→20:10)
[2022-07-22] MEDS: Lansoprazole 3 MG/ML ORAL SUSPENSION PER TUBE SCH (08:06)
[2022-07-22 12:30] VITALS: TEMP 98.8
[2022-07-22 14:59] LABS: Hemoglobin 7.8 g/dL (12.0-15.5)
[2022-07-22] MEDS: Dexmedetomidine In 0.9 % NaCl 400 MCG in Premix Bag 1 BAG IVPB SCH (17:43)
[2022-07-22 17:58] LABS: Bilirubin Neg (Negative); Blood, Urine 50 (Negative); Clarity Cloudy (Clear); Glucose, Urine (Dipstick) Normal (Negative); Ketone, Urine Negative (Negative); Leukocyte 500 (Negative); Nitrite Negative (Negative); Protein, Urine (Dipstick) 30 mg/dl (Neg-Trace)
[2022-07-22 18:23] LABS: Urine Culture Reflex No No
[2022-07-22 18:24] LABS: Bacteria/HPF Rare-Few HPF (None Seen); RBC/HPF 0-3 HPF (0-3); Squamous Epithelial 0-3 HPF (0-3); WBC/HPF 21-50 HPF (0-3); Yeast-Budding 1+ HPF (None Seen); Yeast-Hyphae 1+ HPF (None Seen)
[2022-07-22] MEDS: Atorvastatin Calcium 10 MG TAB PO SCH (20:10)
[2022-07-23 04:10] LABS: Anion Gap 16 mmol/L (10-20); BUN (Urea Nitrogen) 30 mg/dL (9.8-20.1); Calc. Creatinine Clearance 72 mL/min (70-130); Calcium 8.2 mg/dL (7.8-10.44); Carbon Dioxide 27 mmol/L (23-31); Chloride 103 mmol/L (98-107); Estimated GFR 96; Glucose 113 mg/dL (83-110); Magnesium 2.1 mg/dL (1.6-2.6); Potassium 4.7 mmol/L (3.5-5.1); Sodium 141 mmol/L (136-145)
[2022-07-23 04:15] LABS: #Monocytes 0.4 10x3/uL (0.0-1.1); #Neutrophils 5.6 10x3/uL (1.5-8.4); %Basophils 0.1 % (0.0-2.0); %Eosinophils 0.1 % (0.0-6.0); %Monocytes 5.8 % (0.0-10.0); %Neutrophils 79.6 % (40.0-75.0); Hemoglobin 7.8 g/dL (12.0-15.5); Mean Corpuscular HGB CONC 32.1 g/dL (32.0-36.0); Mean Platelet Volume 10.2 fl (7.4-10.4); Platelet Count 281 10x3/uL (150-450); RBC Distribution Width 17.2 % (11.5-14.5); Red Blood Cell (RBC) Count 2.52 10x6/uL (3.90-5.03); White Blood Cell (WBC) Count 7.1 10x3/uL (3.5-10.5)
[2022-07-23] MEDS: Morphine 2 MG/ML VIAL SLOW IVP PRN ×6 (06:45→23:32)
[2022-07-23] MEDS: Zinc Sulfate 220 MG CAP PER TUBE SCH (08:49)
[2022-07-23] MEDS: Ascorbic Acid 500 mg Chewable Tablet PER TUBE SCH (08:49)
[2022-07-23] MEDS: Lansoprazole 3 MG/ML ORAL SUSPENSION PER TUBE SCH (08:51)
[2022-07-23] MEDS: Polyethylene Glycol 3350 17 GM Packet PO SCH (09:00)
[2022-07-23] MEDS: Dexmedetomidine In 0.9 % NaCl 400 MCG in Premix Bag 1 BAG IVPB SCH ×2 (12:55→23:32)
[2022-07-23] MEDS: Atorvastatin Calcium 10 MG TAB PO SCH (20:00)
[2022-07-24 04:26] LABS: Anion Gap 18 mmol/L (10-20); BUN (Urea Nitrogen) 21 mg/dL (9.8-20.1); Calc. Creatinine Clearance 73 mL/min (70-130); Calcium 8.3 mg/dL (7.8-10.44); Carbon Dioxide 24 mmol/L (23-31); Chloride 105 mmol/L (98-107); Estimated GFR 96; Glucose 124 mg/dL (83-110); Magnesium 1.8 mg/dL (1.6-2.6); Potassium 3.7 mmol/L (3.5-5.1); Sodium 143 mmol/L (136-145)
[2022-07-24 04:39] LABS: #Monocytes 0.4 10x3/uL (0.0-1.1); #Neutrophils 5.4 10x3/uL (1.5-8.4); %Basophils 0.1 % (0.0-2.0); %Eosinophils 0.3 % (0.0-6.0); %Lymphocytes 14.9 % (18.0-47.0); %Monocytes 5.1 % (0.0-10.0); %Neutrophils 79.2 % (40.0-75.0); Hemoglobin 8.3 g/dL (12.0-15.5); Mean Corpuscular HGB CONC 31.8 g/dL (32.0-36.0); Mean Corpuscular Hemoglobin 30.4 pg (27.0-33.0); Mean Corpuscular Volume 95.6 fl (81.6-98.3); Mean Platelet Volume 10.7 fl (7.4-10.4); Platelet Count 255 10x3/uL (150-450); Red Blood Cell (RBC) Count 2.73 10x6/uL (3.90-5.03); White Blood Cell (WBC) Count 6.8 10x3/uL (3.5-10.5)
[2022-07-24] MEDS ORDERED: Magnesium 2 GM/50 ML(in water) 2 GM in Premix Bag 1 BAG IVPB SCH (05:00)
[2022-07-24 05:57] VITALS: BMI 19.5
[2022-07-24] MEDS: Dexmedetomidine In 0.9 % NaCl 400 MCG in Premix Bag 1 BAG IVPB SCH (07:59)
[2022-07-24] MEDS ORDERED: Valproate Sodium 250 mg/5 ml UD Cup PER TUBE SCH (09:00)
[2022-07-24] MEDS ORDERED: Ziprasidone 20 MG VIAL IM SCH (09:00)
[2022-07-24] MEDS: Ascorbic Acid 500 mg Chewable Tablet PER TUBE SCH (09:11)
[2022-07-24] MEDS: Morphine 2 MG/ML VIAL SLOW IVP PRN ×3 (09:12→18:15)
[2022-07-24] MEDS: Zinc Sulfate 220 MG CAP PER TUBE SCH (09:12)
[2022-07-24] MEDS: Polyethylene Glycol 3350 17 GM Packet PO SCH (09:13)
[2022-07-24] MEDS: Lansoprazole 3 MG/ML ORAL SUSPENSION PER TUBE SCH (09:14)
[2022-07-24] MEDS ORDERED: Sterile Water 10 ML ONE (09:25)
[2022-07-24 13:59] VITALS: BP 128/60
== END 2022-07-24 18:30 | disposition short-term general hospital (02) | DRG 4 ==
LOC: CSHERS 15:48 → CSHICU 18:09
PROVIDERS: ADMIT Hospitalist; ATTEND Family Medicine
PROC: 0D9670Z Drainage of Stomach with Drainage Device, Via Natural or Artificial Opening (ICD-10-PCS; 2022-06-16)
PROC: 02H633Z Insertion of Infusion Device into Right Atrium, Percutaneous Approach (ICD-10-PCS; 2022-06-16)
PROC: 5A1955Z Respiratory Ventilation, Greater than 96 Consecutive Hours (ICD-10-PCS; 2022-06-16)
PROC: 0BH18EZ Insertion of Endotracheal Airway into Trachea, Via Natural or Artificial Opening Endoscopic (ICD-10-PCS; 2022-06-16)
PROC: 3E033XZ Introduction of Vasopressor into Peripheral Vein, Percutaneous Approach (ICD-10-PCS; 2022-06-16)
PROC: 8E0ZXY6 Isolation (ICD-10-PCS; 2022-06-16)
PROC: 30233J1 Transfusion of Nonautologous Serum Albumin into Peripheral Vein, Percutaneous Approach (ICD-10-PCS; 2022-06-17)
PROC: 30233N1 Transfusion of Nonautologous Red Blood Cells into Peripheral Vein, Percutaneous Approach (ICD-10-PCS; 2022-06-18)
PROC: 0B110F4 Bypass Trachea to Cutaneous with Tracheostomy Device, Open Approach (ICD-10-PCS; principal; 2022-07-11)
PROC: 0DH63UZ Insertion of Feeding Device into Stomach, Percutaneous Approach (ICD-10-PCS; 2022-07-11)
PROC: 02HV33Z Insertion of Infusion Device into Superior Vena Cava, Percutaneous Approach (ICD-10-PCS; 2022-07-17)
PROC: B5181ZA Fluoroscopy of Superior Vena Cava using Low Osmolar Contrast, Guidance (ICD-10-PCS; 2022-07-17)
PROC: B548ZZA Ultrasonography of Superior Vena Cava, Guidance (ICD-10-PCS; 2022-07-17)
DX: A41.9 Sepsis, unspecified organism (principal); L89.153 Pressure ulcer of sacral region, stage 3; G93.41 Metabolic encephalopathy; J18.9 Pneumonia, unspecified organism; R65.21 Severe sepsis with septic shock; U07.1 COVID-19; I50.33 Acute on chronic diastolic (congestive) heart failure; J69.0 Pneumonitis due to inhalation of food and vomit; J96.21 Acute and chronic respiratory failure with hypoxia; J96.22 Acute and chronic respiratory failure with hypercapnia; J12.82 Pneumonia due to coronavirus disease 2019; T80.212A Local infection due to central venous catheter, initial encounter; J44.0 Chronic obstructive pulmonary disease with (acute) lower respiratory infection; J44.1 Chronic obstructive pulmonary disease with (acute) exacerbation; E44.0 Moderate protein-calorie malnutrition; R64 Cachexia; Z68.1 Body mass index [BMI] 19.9 or less, adult; D62 Acute posthemorrhagic anemia; E87.6 Hypokalemia; E78.5 Hyperlipidemia, unspecified; F03.90 Unspecified dementia, unspecified severity, without behavioral disturbance, psychotic disturbance, mood disturbance, and anxiety; M81.0 Age-related osteoporosis without current pathological fracture; I77.819 Aortic ectasia, unspecified site; K21.9 Gastro-esophageal reflux disease without esophagitis; I11.0 Hypertensive heart disease with heart failure; Z79.899 Other long term (current) drug therapy; Z88.5 Allergy status to narcotic agent; Z98.890 Other specified postprocedural states
CPT/HCPCS: 31500; 36415; 36430; 36556; 36569; 36600; 51702; 71045; 71275; 72193; 80048; 80053; 80061; 80076; 80202; 81001; 81003; 81015; 82565; 82607; 82728; 82805; 83036; 83605; 83690; 83735; 83880; 84100; 84132; 84443; 84478; 84484; 85025; 85060; 85379; 86140; 86850; 86900; 86901; 87040; 87070; 87077; 87081; 87086; 87149; 87186; 87205; 89220; 93005; 93010; 93306; 94002; 94003; 94640; 94760; 96361; 96365; 96368; 96375; 97139; 99292; C1751; J0171; J0692; J0696; J1650; J1720; J1940; J2060; J2250; J2270; J2405; J2704; J2920; J2930; J3010; J3370; J3475; J3480; J3486; J3490; J7050; J7620; P9016; P9047; Q9967; S0020; S0028

== ENCOUNTER 2022-10-11 13:48 | Outpatient (CLI) | payer OTHER | END 2022-10-11 13:49 | disposition home or self-care (01) | LOC: CSHWCC 13:48 | PROVIDERS: ATTEND Nurse Practitioner Family | DX: L89.153 Pressure ulcer of sacral region, stage 3 (principal) | CPT/HCPCS: 97139; G0463; 99203 ==

== ENCOUNTER 2022-11-07 13:23 | Outpatient (CLI) | payer OTHER | END 2022-11-07 13:24 | disposition home or self-care (01) | LOC: CSHWCC 13:23 | PROVIDERS: ATTEND Nurse Practitioner Family | DX: L89.153 Pressure ulcer of sacral region, stage 3 (principal) ==

== ENCOUNTER 2022-12-05 13:20 | Outpatient (CLI) | payer OTHER | END 2022-12-05 13:21 | disposition home or self-care (01) | LOC: CSHWCC 13:20 | PROVIDERS: ATTEND Nurse Practitioner Family | DX: L89.153 Pressure ulcer of sacral region, stage 3 (principal) | CPT/HCPCS: 97139; G0463; 99212 ==

== ENCOUNTER 2023-01-10 13:25 | Outpatient (CLI) | payer OTHER | END 2023-01-10 13:26 | disposition home or self-care (01) | LOC: CSHWCC 13:25 | PROVIDERS: ATTEND Nurse Practitioner Family | DX: L89.519 Pressure ulcer of right ankle, unspecified stage (principal) | CPT/HCPCS: 97139; G0463; 99213 ==

== ENCOUNTER 2023-02-07 13:23 | Outpatient (CLI) | payer OTHER | END 2023-02-07 13:24 | disposition home or self-care (01) | LOC: CSHWCC 13:23 | PROVIDERS: ATTEND Nurse Practitioner Family | DX: L89.153 Pressure ulcer of sacral region, stage 3 (principal) | CPT/HCPCS: 99212; G0463 ==

== ENCOUNTER 2023-07-09 04:57 | Inpatient (IN) | payer MEDICARE, MEDICAID ==
[2023-07-09] MEDS ORDERED: methylPREDNISolone Sod Succ/PF 125 MG/2 ML VIAL ONE (05:16)
[2023-07-09] MEDS ORDERED: Magnesium 2 GM/50 ML BAG (IN WATER) ONE (05:16)
[2023-07-09 05:28] LABS: #Monocytes 0.4 10x3/uL (0.0-1.1); %Basophils 0.3 % (0.0-2.0); %Eosinophils 0.1 % (0.0-6.0); %Lymphocytes 21.3 % (18.0-47.0); %Monocytes 5.4 % (0.0-10.0); %Neutrophils 72.6 % (40.0-75.0); Hematocrit 35.7 % (34.9-44.5); Hemoglobin 11.1 g/dL (12.0-15.5); Mean Corpuscular HGB CONC 31.1 g/dL (32.0-36.0); Mean Corpuscular Hemoglobin 32.1 pg (27.0-33.0); Mean Corpuscular Volume 103.2 fl (81.6-98.3); Mean Platelet Volume 9.4 fl (7.4-10.4); Platelet Count 282 10x3/uL (150-450); RBC Distribution Width 13.6 % (11.5-14.5); Red Blood Cell (RBC) Count 3.46 10x6/uL (3.90-5.03); White Blood Cell (WBC) Count 6.9 10x3/uL (3.5-10.5)
[2023-07-09 05:46] LABS: ALT (SGPT) 9 U/L (8-55); AST (SGOT) 17 U/L (5-34); Albumin 3.7 g/dL (3.4-4.8); Alkaline Phosphatase 68 U/L (40-110); Anion Gap 19 mmol/L (10-20); BUN (Urea Nitrogen) 16 mg/dL (9.8-20.1); Bilirubin, Total 0.2 mg/dL (0.2-1.2); Calc. Creatinine Clearance 0 mL/min (70-130); Calcium 9.2 mg/dL (7.8-10.44); Carbon Dioxide 26 mmol/L (23-31); Chloride 101 mmol/L (98-107); Estimated GFR 93; Globulin 3.5 g/dL (2.4-3.5); Glucose 137 mg/dL (83-110); Lipase 25 U/L (8-78); Magnesium 1.7 mg/dL (1.6-2.6); Potassium 4.4 mmol/L (3.5-5.1); Protein, Total 7.2 g/dL (5.8-8.1); Sodium 142 mmol/L (136-145)
[2023-07-09 05:52] LABS: Troponin I Less than 0.010 ng/mL (< 0.028)
[2023-07-09 06:00] LABS: SARS-CoV-2 NAA Rapid Test Not Detected (NotDetected)
[2023-07-09 09:49] LABS: Troponin I 0.012 ng/mL (< 0.028)
[2023-07-09] MEDS ORDERED: Ipratropium/Albuterol 3 ML NEB ONE (10:02)
[2023-07-09] MEDS ORDERED: Ondansetron ODT 4 MG TAB PO PRN (10:29)
[2023-07-09] MEDS ORDERED: Ondansetron PF 4 MG/2 ML Vial IVP PRN (10:29)
[2023-07-09 12:31] LABS: Troponin I Less than 0.010 ng/mL (< 0.028)
[2023-07-09] MEDS: Acetaminophen 325 MG TAB PO PRN ×2 (12:55→20:48)
[2023-07-09] MEDS: methylPREDNISolone Sod Succ 40 MG VIAL IVP SCH ×3 (12:55→23:36)
[2023-07-09] MEDS: Ipratropium/Albuterol 3 ML NEB NEB SCH ×2 (14:23→19:15)
[2023-07-10] MEDS: Ipratropium/Albuterol 3 ML NEB NEB SCH ×3 (00:43→14:38)
[2023-07-10 01:14] VITALS: BMI 18.5
[2023-07-10] MEDS: methylPREDNISolone Sod Succ 40 MG VIAL IVP SCH ×2 (05:45→13:13)
[2023-07-10] MEDS: Acetaminophen 325 MG TAB PO PRN ×2 (05:52→13:14)
[2023-07-10 06:00] LABS: #Monocytes 0.2 10x3/uL (0.0-1.1); #Neutrophils 4.5 10x3/uL (1.5-8.4); %Lymphocytes 12.7 % (18.0-47.0); %Monocytes 3.7 % (0.0-10.0); %Neutrophils 83.2 % (40.0-75.0); Hematocrit 32.9 % (34.9-44.5); Hemoglobin 10.4 g/dL (12.0-15.5); Mean Corpuscular HGB CONC 31.6 g/dL (32.0-36.0); Mean Corpuscular Hemoglobin 32.2 pg (27.0-33.0); Mean Corpuscular Volume 101.9 fl (81.6-98.3); Mean Platelet Volume 9.6 fl (7.4-10.4); Platelet Count 296 10x3/uL (150-450); RBC Distribution Width 13.8 % (11.5-14.5); Red Blood Cell (RBC) Count 3.23 10x6/uL (3.90-5.03); White Blood Cell (WBC) Count 5.4 10x3/uL (3.5-10.5)
[2023-07-10 06:10] LABS: Anion Gap 17 mmol/L (10-20); BUN (Urea Nitrogen) 17 mg/dL (9.8-20.1); Calc. Creatinine Clearance 53 mL/min (70-130); Calcium 9.5 mg/dL (7.8-10.44); Carbon Dioxide 26 mmol/L (23-31); Chloride 101 mmol/L (98-107); Estimated GFR 92; Glucose 136 mg/dL (83-110); Potassium 4.5 mmol/L (3.5-5.1); Sodium 139 mmol/L (136-145)
[2023-07-10] MEDS ORDERED: Polyethylene Glycol 3350 17 GM Packet PO SCH (12:00)
[2023-07-10] MEDS ORDERED: Furosemide 40 MG/4 ML VIAL SLOW IVP SCH (13:45)
[2023-07-10] MEDS: Ipratropium/Albuterol 3 ML NEB NEB PRN (14:36)
[2023-07-10] MEDS: cefTRIAXone\\ROCEPHIN 1 GM in Sodium Chloride 0.9% 100 ML IVPB SCH (14:38)
[2023-07-11 05:05] LABS: #Monocytes 0.5 10x3/uL (0.0-1.1); #Neutrophils 3.1 10x3/uL (1.5-8.4); %Lymphocytes 28.9 % (18.0-47.0); %Monocytes 9.9 % (0.0-10.0); Hematocrit 31.6 % (34.9-44.5); Hemoglobin 10.2 g/dL (12.0-15.5); Mean Corpuscular HGB CONC 32.3 g/dL (32.0-36.0); Mean Corpuscular Hemoglobin 32.6 pg (27.0-33.0); Mean Platelet Volume 9.5 fl (7.4-10.4); Platelet Count 316 10x3/uL (150-450); RBC Distribution Width 14.3 % (11.5-14.5); Red Blood Cell (RBC) Count 3.13 10x6/uL (3.90-5.03); White Blood Cell (WBC) Count 5.2 10x3/uL (3.5-10.5)
[2023-07-11 05:16] LABS: Anion Gap 17 mmol/L (10-20); BUN (Urea Nitrogen) 17 mg/dL (9.8-20.1); Calc. Creatinine Clearance 55 mL/min (70-130); Calcium 9.3 mg/dL (7.8-10.44); Carbon Dioxide 28 mmol/L (23-31); Chloride 103 mmol/L (98-107); Estimated GFR 93; Glucose 98 mg/dL (83-110); Potassium 4.4 mmol/L (3.5-5.1); Sodium 144 mmol/L (136-145)
[2023-07-11] MEDS: Polyethylene Glycol 3350 17 GM Packet PO SCH (08:48)
[2023-07-11] MEDS: Acetaminophen 325 MG TAB PO PRN (08:48)
[2023-07-11] MEDS ORDERED: methylPREDNISolone Sod Succ 40 MG VIAL IVP SCH (09:00)
[2023-07-11] MEDS ORDERED: GoLYTELY 4,000 ml Bottle PO SCH (09:45)
[2023-07-11] MEDS ORDERED: Ibuprofen 400 MG TAB PO PRN (10:01)
[2023-07-11] MEDS: D5 1/2 NS w/20 mEq KCL 1,000 ML IV SCH (11:00)
[2023-07-11] MEDS: cefTRIAXone\\ROCEPHIN 1 GM in Sodium Chloride 0.9% 100 ML IVPB SCH (13:49)
[2023-07-11] MEDS ORDERED: hydrALAZINE 20 MG/ML VIAL SLOW IVP PRN (20:37)
[2023-07-11] MEDS ORDERED: Metoprolol Tartrate 5 MG/5 ML VIAL IVP SCH (21:30)
[2023-07-11] MEDS: Ipratropium/Albuterol 3 ML NEB NEB PRN (23:27)
[2023-07-12 03:44] LABS: Anion Gap 17 mmol/L (10-20); BUN (Urea Nitrogen) 14 mg/dL (9.8-20.1); Calc. Creatinine Clearance 56 mL/min (70-130); Calcium 9.4 mg/dL (7.8-10.44); Carbon Dioxide 26 mmol/L (23-31); Chloride 101 mmol/L (98-107); Estimated GFR 93; Glucose 103 mg/dL (83-110); Potassium 5.4 mmol/L (3.5-5.1); Sodium 139 mmol/L (136-145)
[2023-07-12] MEDS: D5 1/2 NS w/20 mEq KCL 1,000 ML IV SCH (05:24)
[2023-07-12] MEDS: Acetaminophen 325 MG TAB PO PRN (05:28)
[2023-07-12] MEDS: Ascorbic Acid 500 mg Chewable Tablet PO SCH (09:16)
[2023-07-12] MEDS: Polyethylene Glycol 3350 17 GM Packet PO SCH (09:16)
[2023-07-12] MEDS: Sertraline 25 MG TAB PO SCH (09:16)
[2023-07-12] MEDS: busPIRone HCl 5 MG TAB PO SCH ×2 (09:16→20:26)
[2023-07-12] MEDS: cefTRIAXone\\ROCEPHIN 1 GM in Sodium Chloride 0.9% 100 ML IVPB SCH (14:45)
[2023-07-12] MEDS ORDERED: Mineral Oil ENEMA PR SCH (15:00)
[2023-07-12] MEDS: Ipratropium/Albuterol 3 ML NEB NEB PRN ×2 (15:25→21:15)
[2023-07-12 15:58] LABS: Potassium 5.5 mmol/L (3.5-5.1)
[2023-07-12] MEDS ORDERED: Bisacodyl 10 MG SUPP PR SCH (21:00)
[2023-07-12] MEDS: Budesonide 0.5 MG/2 ML NEB NEB SCH (21:24)
[2023-07-12 22:21] LABS: Anion Gap 18 mmol/L (10-20); BUN (Urea Nitrogen) 11 mg/dL (9.8-20.1); Calc. Creatinine Clearance 53 mL/min (70-130); Calcium 9.2 mg/dL (7.8-10.44); Carbon Dioxide 24 mmol/L (23-31); Chloride 102 mmol/L (98-107); Estimated GFR 92; Glucose 99 mg/dL (83-110); Potassium 5.1 mmol/L (3.5-5.1); Sodium 139 mmol/L (136-145)
[2023-07-13 04:08] LABS: Anion Gap 18 mmol/L (10-20); BUN (Urea Nitrogen) 10 mg/dL (9.8-20.1); Calc. Creatinine Clearance 54 mL/min (70-130); Calcium 8.6 mg/dL (7.8-10.44); Carbon Dioxide 22 mmol/L (23-31); Chloride 105 mmol/L (98-107); Estimated GFR 93; Glucose 105 mg/dL (83-110); Potassium 4.5 mmol/L (3.5-5.1); Sodium 140 mmol/L (136-145)
[2023-07-13] MEDS: Budesonide 0.5 MG/2 ML NEB NEB SCH ×2 (07:05→19:52)
[2023-07-13] MEDS: Ipratropium/Albuterol 3 ML NEB NEB PRN ×2 (07:05→19:53)
[2023-07-13] MEDS: busPIRone HCl 5 MG TAB PO SCH ×2 (09:26→21:01)
[2023-07-13] MEDS: Ascorbic Acid 500 mg Chewable Tablet PO SCH (09:26)
[2023-07-13] MEDS: Sertraline 25 MG TAB PO SCH (09:26)
[2023-07-13] MEDS: Polyethylene Glycol 3350 17 GM Packet PO SCH (09:27)
[2023-07-13] MEDS: cefTRIAXone\\ROCEPHIN 1 GM in Sodium Chloride 0.9% 100 ML IVPB SCH (14:26)
[2023-07-13] MEDS: Acetaminophen 325 MG TAB PO PRN (21:01)
[2023-07-14 03:58] LABS: Anion Gap 16 mmol/L (10-20); BUN (Urea Nitrogen) 11 mg/dL (9.8-20.1); Calc. Creatinine Clearance 57 mL/min (70-130); Calcium 8.5 mg/dL (7.8-10.44); Carbon Dioxide 26 mmol/L (23-31); Chloride 103 mmol/L (98-107); Estimated GFR 94; Glucose 104 mg/dL (83-110); Potassium 4.2 mmol/L (3.5-5.1); Sodium 141 mmol/L (136-145)
[2023-07-14] MEDS: Budesonide 0.5 MG/2 ML NEB NEB SCH ×2 (06:45→19:05)
[2023-07-14] MEDS: Ipratropium/Albuterol 3 ML NEB NEB PRN (06:45)
[2023-07-14] MEDS: Sertraline 25 MG TAB PO SCH (08:54)
[2023-07-14] MEDS: Ascorbic Acid 500 mg Chewable Tablet PO SCH (08:54)
[2023-07-14] MEDS: Polyethylene Glycol 3350 17 GM Packet PO SCH (08:55)
[2023-07-14] MEDS: busPIRone HCl 5 MG TAB PO SCH ×2 (08:55→21:36)
[2023-07-14] MEDS: cefTRIAXone\\ROCEPHIN 1 GM in Sodium Chloride 0.9% 100 ML IVPB SCH (13:24)
[2023-07-14] MEDS ORDERED: Senokot 8.6 MG TAB PO PRN (16:50)
[2023-07-14] MEDS: Magnesium Oxide 400 MG TAB PO SCH (21:36)
[2023-07-15 04:16] LABS: #Eosinphils 0.1 10x3/uL (0.0-0.5); #Monocytes 0.4 10x3/uL (0.0-1.1); #Neutrophils 1.8 10x3/uL (1.5-8.4); %Basophils 0.5 % (0.0-2.0); %Eosinophils 1.3 % (0.0-6.0); %Lymphocytes 42.6 % (18.0-47.0); %Monocytes 9.8 % (0.0-10.0); %Neutrophils 45.5 % (40.0-75.0); Hematocrit 32.6 % (34.9-44.5); Hemoglobin 10.1 g/dL (12.0-15.5); Mean Corpuscular Hemoglobin 32.8 pg (27.0-33.0); Mean Corpuscular Volume 105.8 fl (81.6-98.3); Mean Platelet Volume 9.6 fl (7.4-10.4); Platelet Count 297 10x3/uL (150-450); RBC Distribution Width 14.1 % (11.5-14.5); Red Blood Cell (RBC) Count 3.08 10x6/uL (3.90-5.03)
[2023-07-15 04:35] LABS: Anion Gap 14 mmol/L (10-20); BUN (Urea Nitrogen) 9 mg/dL (9.8-20.1); Calc. Creatinine Clearance 61 mL/min (70-130); Calcium 8.6 mg/dL (7.8-10.44); Carbon Dioxide 24 mmol/L (23-31); Chloride 104 mmol/L (98-107); Estimated GFR 95; Glucose 98 mg/dL (83-110); Potassium 4.3 mmol/L (3.5-5.1); Sodium 138 mmol/L (136-145)
[2023-07-15] MEDS: Budesonide 0.5 MG/2 ML NEB NEB SCH ×2 (07:10→19:45)
[2023-07-15] MEDS: Ipratropium/Albuterol 3 ML NEB NEB PRN (07:10)
[2023-07-15] MEDS: Magnesium Oxide 400 MG TAB PO SCH ×2 (10:42→21:48)
[2023-07-15] MEDS: Sertraline 25 MG TAB PO SCH (10:42)
[2023-07-15] MEDS: Ascorbic Acid 500 mg Chewable Tablet PO SCH (10:42)
[2023-07-15] MEDS: busPIRone HCl 5 MG TAB PO SCH ×2 (10:42→21:48)
[2023-07-15] MEDS: Multivitamin W/ Minerals 1 TAB PO SCH (10:43)
[2023-07-15] MEDS: Polyethylene Glycol 3350 17 GM Packet PO SCH (10:43)
[2023-07-15] MEDS: Lidocaine 4% Patch TD SCH (14:08)
[2023-07-15] MEDS: cefTRIAXone\\ROCEPHIN 1 GM in Sodium Chloride 0.9% 100 ML IVPB SCH (14:08)
[2023-07-16] MEDS: Acetaminophen 325 MG TAB PO PRN ×2 (01:36→23:33)
[2023-07-16 03:45] LABS: #Eosinphils 0.1 10x3/uL (0.0-0.5); #Monocytes 0.4 10x3/uL (0.0-1.1); #Neutrophils 2.2 10x3/uL (1.5-8.4); %Basophils 0.2 % (0.0-2.0); %Eosinophils 1.2 % (0.0-6.0); %Lymphocytes 35.1 % (18.0-47.0); %Monocytes 9.2 % (0.0-10.0); %Neutrophils 54.1 % (40.0-75.0); Hematocrit 31.3 % (34.9-44.5); Hemoglobin 9.6 g/dL (12.0-15.5); Mean Corpuscular HGB CONC 30.7 g/dL (32.0-36.0); Mean Corpuscular Hemoglobin 32.4 pg (27.0-33.0); Mean Corpuscular Volume 105.7 fl (81.6-98.3); Mean Platelet Volume 9.4 fl (7.4-10.4); Platelet Count 284 10x3/uL (150-450); Red Blood Cell (RBC) Count 2.96 10x6/uL (3.90-5.03)
[2023-07-16 03:49] LABS: Anion Gap 14 mmol/L (10-20); BUN (Urea Nitrogen) 9 mg/dL (9.8-20.1); Calc. Creatinine Clearance 61 mL/min (70-130); Calcium 8.7 mg/dL (7.8-10.44); Carbon Dioxide 24 mmol/L (23-31); Chloride 105 mmol/L (98-107); Estimated GFR 95; Glucose 97 mg/dL (83-110); Potassium 4.3 mmol/L (3.5-5.1); Sodium 139 mmol/L (136-145)
[2023-07-16] MEDS: LIDOCAINE Patch Removal TOP SCH (03:53)
[2023-07-16] MEDS: Budesonide 0.5 MG/2 ML NEB NEB SCH ×2 (08:30→18:55)
[2023-07-16] MEDS: busPIRone HCl 5 MG TAB PO SCH ×2 (09:34→21:02)
[2023-07-16] MEDS: Polyethylene Glycol 3350 17 GM Packet PO SCH (09:34)
[2023-07-16] MEDS: Sertraline 25 MG TAB PO SCH (09:34)
[2023-07-16] MEDS: Multivitamin W/ Minerals 1 TAB PO SCH (09:34)
[2023-07-16] MEDS: Ascorbic Acid 500 mg Chewable Tablet PO SCH (09:34)
[2023-07-16] MEDS: Magnesium Oxide 400 MG TAB PO SCH ×2 (09:34→21:02)
[2023-07-16] MEDS: Lidocaine 4% Patch TD SCH (13:03)
[2023-07-16] MEDS ORDERED: traMADol HCl 50 MG TAB PO PRN (13:56)
[2023-07-16] MEDS ORDERED: Magnesium Citrate 300 ML BOT PO SCH (14:00)
[2023-07-16] MEDS: cefTRIAXone\\ROCEPHIN 1 GM in Sodium Chloride 0.9% 100 ML IVPB SCH (14:17)
[2023-07-17] MEDS: LIDOCAINE Patch Removal TOP SCH (01:41)
[2023-07-17 03:42] LABS: #Eosinphils 0.1 10x3/uL (0.0-0.5); #Monocytes 0.4 10x3/uL (0.0-1.1); #Neutrophils 1.9 10x3/uL (1.5-8.4); %Basophils 0.3 % (0.0-2.0); %Eosinophils 1.3 % (0.0-6.0); %Lymphocytes 37.4 % (18.0-47.0); %Monocytes 11.2 % (0.0-10.0); %Neutrophils 49.5 % (40.0-75.0); Hematocrit 33.9 % (34.9-44.5); Hemoglobin 10.4 g/dL (12.0-15.5); Mean Corpuscular HGB CONC 30.7 g/dL (32.0-36.0); Mean Corpuscular Volume 104.3 fl (81.6-98.3); Mean Platelet Volume 9.3 fl (7.4-10.4); Platelet Count 315 10x3/uL (150-450); Red Blood Cell (RBC) Count 3.25 10x6/uL (3.90-5.03); White Blood Cell (WBC) Count 3.7 10x3/uL (3.5-10.5)
[2023-07-17 03:43] LABS: Anion Gap 15 mmol/L (10-20); BUN (Urea Nitrogen) 10 mg/dL (9.8-20.1); Calc. Creatinine Clearance 60 mL/min (70-130); Calcium 9.2 mg/dL (7.8-10.44); Carbon Dioxide 28 mmol/L (23-31); Chloride 105 mmol/L (98-107); Estimated GFR 95; Glucose 99 mg/dL (83-110); Potassium 4.7 mmol/L (3.5-5.1); Sodium 143 mmol/L (136-145)
[2023-07-17] MEDS: Budesonide 0.5 MG/2 ML NEB NEB SCH (07:43)
[2023-07-17] MEDS: Multivitamin W/ Minerals 1 TAB PO SCH (10:22)
[2023-07-17] MEDS: busPIRone HCl 5 MG TAB PO SCH (10:22)
[2023-07-17] MEDS: Sertraline 25 MG TAB PO SCH (10:22)
[2023-07-17] MEDS: Magnesium Oxide 400 MG TAB PO SCH (10:23)
[2023-07-17] MEDS: Ascorbic Acid 500 mg Chewable Tablet PO SCH (10:23)
[2023-07-17] MEDS: Polyethylene Glycol 3350 17 GM Packet PO SCH (10:24)
[2023-07-17] MEDS: Lidocaine 4% Patch TD SCH (14:24)
[2023-07-17] MEDS: cefTRIAXone\\ROCEPHIN 1 GM in Sodium Chloride 0.9% 100 ML IVPB SCH (14:24)
[2023-07-17 17:10] VITALS: BP 143/67; TEMP 97.7
== END 2023-07-17 18:55 | DRG 291 ==
LOC: CSHERS 04:57 → CSHTELE 10:27 → OBSVTOIN 07-11 10:00
PROVIDERS: ADMIT Family Medicine; ATTEND Internal Medicine
DX: I11.0 Hypertensive heart disease with heart failure (principal); I50.33 Acute on chronic diastolic (congestive) heart failure; J96.01 Acute respiratory failure with hypoxia; J96.02 Acute respiratory failure with hypercapnia; J44.1 Chronic obstructive pulmonary disease with (acute) exacerbation; E44.0 Moderate protein-calorie malnutrition; J98.11 Atelectasis; Z68.1 Body mass index [BMI] 19.9 or less, adult; E78.5 Hyperlipidemia, unspecified; F03.90 Unspecified dementia, unspecified severity, without behavioral disturbance, psychotic disturbance, mood disturbance, and anxiety; K21.9 Gastro-esophageal reflux disease without esophagitis; M81.0 Age-related osteoporosis without current pathological fracture; Z20.822 Contact with and (suspected) exposure to COVID-19; K59.00 Constipation, unspecified; R00.0 Tachycardia, unspecified; R53.81 Other malaise; M54.9 Dorsalgia, unspecified; E87.5 Hyperkalemia; G89.29 Other chronic pain; M43.8X6 Other specified deforming dorsopathies, lumbar region; M43.8X4 Other specified deforming dorsopathies, thoracic region; D64.9 Anemia, unspecified; Z88.5 Allergy status to narcotic agent; Z79.899 Other long term (current) drug therapy; Z98.890 Other specified postprocedural states; Z93.1 Gastrostomy status
CPT/HCPCS: 36415; 71045; 72072; 72100; 80048; 80053; 83690; 83735; 83880; 84145; 84484; 85025; 85379; 93005; 93010; 94640; 94660; 94760; 94762; 94799; J0360; J0696; J1940; J2405; J2920; J2930; J3475; J3480; J3490; J7620; J7626

== ENCOUNTER 2023-12-07 17:02 | Inpatient (IN) | payer MEDICARE, MEDICAID ==
[2023-12-07] MEDS ORDERED: Atropine Sulfate 1 mg/10 ml Syringe ONE (17:14)
[2023-12-07] MEDS ORDERED: Insulin Regular 300 UNITS/3 ML VIAL ONE (17:15)
[2023-12-07] MEDS ORDERED: Dextrose 50% Abboject 50 ML SYRINGE ONE (17:15)
[2023-12-07] MEDS ORDERED: Lidocaine 1% (PF) 30 ML VIAL ONE (17:42)
[2023-12-07 18:00] LABS: ALT (SGPT) 16 U/L (8-55); AST (SGOT) 22 U/L (5-34); Albumin 3.4 g/dL (3.4-4.8); Alkaline Phosphatase 58 U/L (40-110); Anion Gap 15 mmol/L (10-20); BUN (Urea Nitrogen) 33 mg/dL (9.8-20.1); Bilirubin, Total 0.2 mg/dL (0.2-1.2); Calc. Creatinine Clearance 0 mL/min (70-130); Calcium 10.1 mg/dL (7.8-10.44); Carbon Dioxide 24 mmol/L (23-31); Chloride 106 mmol/L (98-107); Estimated GFR 77; Globulin 3.6 g/dL (2.4-3.5); Glucose 223 mg/dL (83-110); Sodium 138 mmol/L (136-145)
[2023-12-07 18:05] LABS: Troponin I 0.013 ng/mL (< 0.028)
[2023-12-07 18:11] LABS: Actual Bicarbonate (HCO3a) 21.3 mEq/L (22-28); Analyzer IN Cardio CS ER; Base Excess (BEa) -5.6 mEq/L (-2.0 to +3.0); CO2 Tension 47.8 mmHg (35.0-45.0); Calcium, Ionized (arterial) 1.39 mmol/L (1.12-1.30); Carboxyhemoglobin (COHb) 0.3 gm% (0.0-3.0); Hematocrit-ABG 29 % (36.0-47.0); Hemoglobin (Hb) 9.9 g/dL (12.0-16.0); O2 Tension (PaO2), arterial 154.7 mmHg (> 70.0); Potassium - ABG Lab 4.64 mmol/L (3.70-5.30); Puncture Site LRA; pH, Arterial 7.266 (7.35-7.45)
[2023-12-07 18:13] LABS: Critical Call Chemistry ERS.JAH AT 1808; Potassium 6.7 mmol/L (3.5-5.1)
[2023-12-07 18:47] LABS: #Eosinphils 0.1 10x3/uL (0.0-0.5); #Monocytes 0.3 10x3/uL (0.0-1.1); #Neutrophils 3.2 10x3/uL (1.5-8.4); %Basophils 0.2 % (0.0-2.0); %Eosinophils 1.2 % (0.0-6.0); %Lymphocytes 26.1 % (18.0-47.0); %Monocytes 6.2 % (0.0-10.0); %Neutrophils 66.1 % (40.0-75.0); Hematocrit 28.6 % (34.9-44.5); Hemoglobin 8.5 g/dL (12.0-15.5); Mean Corpuscular HGB CONC 29.7 g/dL (32.0-36.0); Mean Corpuscular Hemoglobin 32.4 pg (27.0-33.0); Mean Corpuscular Volume 109.2 fl (81.6-98.3); Mean Platelet Volume 10.7 fl (7.4-10.4); Platelet Count 228 10x3/uL (150-450); RBC Distribution Width 13.5 % (11.5-14.5); Red Blood Cell (RBC) Count 2.62 10x6/uL (3.90-5.03); White Blood Cell (WBC) Count 4.9 10x3/uL (3.5-10.5)
[2023-12-07] MEDS ORDERED: HumaLOG 300 UNITS/3 ML VIAL SC PRN (20:17)
[2023-12-07] MEDS ORDERED: Dextrose 50% Abboject 50 ML SYRINGE SLOW IVP PRN (20:17)
[2023-12-07] MEDS ORDERED: Dextrose 5% in Water 1,000 ML IV PRN (20:17)
[2023-12-07] MEDS ORDERED: Glucagon 1 MG/ML KIT IM PRN (20:17)
[2023-12-07] MEDS: Sodium Chloride 0.9% 1,000 ML IV SCH (20:50)
[2023-12-07] MEDS: Meropenem 500 MG in Sodium Chloride 0.9% 100 ML IVPB SCH (21:29)
[2023-12-07] MEDS: busPIRone HCl 5 MG TAB PO SCH (21:34)
[2023-12-07 21:53] LABS: Anion Gap 14 mmol/L (10-20); BUN (Urea Nitrogen) 32 mg/dL (9.8-20.1); Calc. Creatinine Clearance 57 mL/min (70-130); Carbon Dioxide 22 mmol/L (23-31); Chloride 112 mmol/L (98-107); Estimated GFR 90; Phosphorus 3.7 mg/dL (2.3-4.7); Potassium 5.7 mmol/L (3.5-5.1); Sodium 142 mmol/L (136-145)
[2023-12-07 22:01] LABS: Troponin I 0.021 ng/mL (< 0.028)
[2023-12-07 22:11] LABS: Glucose 49 mg/dL (83-110)
[2023-12-07 22:28] LABS: Magnesium 2.5 mg/dL (1.6-2.6)
[2023-12-07] MEDS ORDERED: Heparin 10,000 UNITS/ 10 ML VIAL SLOW IVP SCH (23:30)
[2023-12-08] MEDS ORDERED: FLU VACC QS2023(65UP)/MF59C/PF 60 MCG/0.5 ML SYRINGE IM ONE (00:15)
[2023-12-08 01:11] LABS: HBSAg Index 0.21 S/CO (0-0.99); Hep B Surf Ag Non-Reactive S/CO (NonReactive)
[2023-12-08 01:24] LABS: Troponin I 0.018 ng/mL (< 0.028)
[2023-12-08 01:47] LABS: Anion Gap 11 mmol/L (10-20); BUN (Urea Nitrogen) 8 mg/dL (9.8-20.1); Calc. Creatinine Clearance 94 mL/min (70-130); Carbon Dioxide 29 mmol/L (23-31); Chloride 102 mmol/L (98-107); Estimated GFR 101; Glucose 112 mg/dL (83-110); Potassium 3.2 mmol/L (3.5-5.1); Sodium 139 mmol/L (136-145)
[2023-12-08] MEDS: Ipratropium/Albuterol 3 ML NEB NEB SCH ×4 (02:26→20:00)
[2023-12-08 05:09] LABS: #Monocytes 0.3 10x3/uL (0.0-1.1); #Neutrophils 3.2 10x3/uL (1.5-8.4); %Basophils 0.2 % (0.0-2.0); %Eosinophils 0.4 % (0.0-6.0); %Lymphocytes 29.5 % (18.0-47.0); %Monocytes 5.5 % (0.0-10.0); %Neutrophils 64.2 % (40.0-75.0); Hematocrit 26.9 % (34.9-44.5); Hemoglobin 8.2 g/dL (12.0-15.5); Mean Corpuscular HGB CONC 30.5 g/dL (32.0-36.0); Mean Corpuscular Hemoglobin 32.5 pg (27.0-33.0); Mean Corpuscular Volume 106.7 fl (81.6-98.3); Mean Platelet Volume 10.2 fl (7.4-10.4); Platelet Count 205 10x3/uL (150-450); RBC Distribution Width 13.3 % (11.5-14.5); Red Blood Cell (RBC) Count 2.52 10x6/uL (3.90-5.03); White Blood Cell (WBC) Count 4.9 10x3/uL (3.5-10.5)
[2023-12-08 05:18] LABS: Anion Gap 12 mmol/L (10-20); BUN (Urea Nitrogen) 17 mg/dL (9.8-20.1); Calc. Creatinine Clearance 59 mL/min (70-130); Calcium 8.3 mg/dL (7.8-10.44); Carbon Dioxide 25 mmol/L (23-31); Chloride 107 mmol/L (98-107); Estimated GFR 90; Glucose 119 mg/dL (83-110); Potassium 4.6 mmol/L (3.5-5.1); Sodium 139 mmol/L (136-145)
[2023-12-08] MEDS: Sodium Chloride 0.9% 1,000 ML IV SCH ×2 (06:30→20:11)
[2023-12-08] MEDS: Budesonide 0.5 MG/2 ML NEB INH SCH ×2 (07:33→19:55)
[2023-12-08] MEDS: Meropenem 500 MG in Sodium Chloride 0.9% 100 ML IVPB SCH ×2 (08:12→21:49)
[2023-12-08] MEDS ORDERED: Iopamidol 300 61% 100 ML VIAL FS ONE (09:27)
[2023-12-08] MEDS ORDERED: Gentamicin 80 MG/2 ML VIAL ONE (09:40)
[2023-12-08] MEDS ORDERED: CEFAZOLIN 1 GM VIAL ONE (09:40)
[2023-12-08] MEDS ORDERED: Lidocaine 1% (PF) 30 ML VIAL ONE (09:40)
[2023-12-08] MEDS ORDERED: Midazolam HCl 2 mg/2 ml Vial ONE (09:41)
[2023-12-08] MEDS ORDERED: fentaNYL 50 mcg/mL 1 mL Vial ONE (09:41)
[2023-12-08] MEDS ORDERED: diphenhydrAMINE 50 MG/ML VIAL ONE (11:58)
[2023-12-08 12:37] LABS: Hep C IgG Ab Non-Reactive S/CO (NonReactive)
[2023-12-08 12:47] LABS: HBSAB Concentration 222.31 mIU/mL; Hep B Core Total Ab Reactive (NonReactive); Hep B Core Total Index 4.17 S/CO (0-0.79); Hep B Surf AB Reactive (NonReactive)
[2023-12-08] MEDS: Enoxaparin 40 MG (0.4 mL) SYRINGE SC SCH (14:35)
[2023-12-08] MEDS ORDERED: CEFAZOLIN 1 GM in Sodium Chloride 0.9% 100 ML IVPB SCH (21:00)
[2023-12-08] MEDS: busPIRone HCl 5 MG TAB PO SCH (21:49)
[2023-12-09] MEDS: Ipratropium/Albuterol 3 ML NEB NEB SCH ×4 (01:15→18:55)
[2023-12-09] MEDS: Acetaminophen 325 MG TAB PO PRN ×2 (02:25→08:05)
[2023-12-09 03:47] LABS: Anion Gap 12 mmol/L (10-20); BUN (Urea Nitrogen) 19 mg/dL (9.8-20.1); Calc. Creatinine Clearance 63 mL/min (70-130); Calcium 8.1 mg/dL (7.8-10.44); Carbon Dioxide 26 mmol/L (23-31); Chloride 108 mmol/L (98-107); Estimated GFR 92; Glucose 92 mg/dL (83-110); Phosphorus 2.5 mg/dL (2.3-4.7); Potassium 4.8 mmol/L (3.5-5.1); Sodium 141 mmol/L (136-145)
[2023-12-09 03:58] LABS: #Eosinphils 0.1 10x3/uL (0.0-0.5); #Monocytes 0.3 10x3/uL (0.0-1.1); #Neutrophils 2.5 10x3/uL (1.5-8.4); %Basophils 0.2 % (0.0-2.0); %Eosinophils 1.2 % (0.0-6.0); %Lymphocytes 28.2 % (18.0-47.0); %Monocytes 8.3 % (0.0-10.0); %Neutrophils 61.9 % (40.0-75.0); Hematocrit 25.5 % (34.9-44.5); Hemoglobin 7.6 g/dL (12.0-15.5); Mean Corpuscular HGB CONC 29.8 g/dL (32.0-36.0); Mean Corpuscular Hemoglobin 31.5 pg (27.0-33.0); Mean Corpuscular Volume 105.8 fl (81.6-98.3); Mean Platelet Volume 10.3 fl (7.4-10.4); Platelet Count 197 10x3/uL (150-450); RBC Distribution Width 13.5 % (11.5-14.5); Red Blood Cell (RBC) Count 2.41 10x6/uL (3.90-5.03); White Blood Cell (WBC) Count 4.1 10x3/uL (3.5-10.5)
[2023-12-09] MEDS: Budesonide 0.5 MG/2 ML NEB INH SCH ×2 (07:25→18:50)
[2023-12-09] MEDS: Meropenem 500 MG in Sodium Chloride 0.9% 100 ML IVPB SCH ×2 (08:05→20:18)
[2023-12-09] MEDS ORDERED: Metoprolol Tartrate 25 MG TAB PO SCH ×2 (11:00→21:00)
[2023-12-09] MEDS ORDERED: Meropenem 500 MG in Sodium Chloride 0.9% 100 ML IVPB SCH (13:18)
[2023-12-09] MEDS: diphenhydrAMINE 50 MG/ML VIAL IVP PRN (13:41)
[2023-12-09] MEDS: Enoxaparin 40 MG (0.4 mL) SYRINGE SC SCH (15:22)
[2023-12-09] MEDS: busPIRone HCl 5 MG TAB PO SCH (20:17)
[2023-12-10] MEDS: Ipratropium/Albuterol 3 ML NEB NEB SCH ×4 (01:05→20:35)
[2023-12-10] MEDS: Acetaminophen 325 MG TAB PO PRN (03:24)
[2023-12-10 03:50] LABS: Anion Gap 11 mmol/L (10-20); BUN (Urea Nitrogen) 14 mg/dL (9.8-20.1); Calc. Creatinine Clearance 74 mL/min (70-130); Calcium 8.6 mg/dL (7.8-10.44); Carbon Dioxide 29 mmol/L (23-31); Chloride 106 mmol/L (98-107); Estimated GFR 95; Glucose 88 mg/dL (83-110); Magnesium 1.7 mg/dL (1.6-2.6); Phosphorus 2.2 mg/dL (2.3-4.7); Sodium 141 mmol/L (136-145)
[2023-12-10 03:57] LABS: #Eosinphils 0.1 10x3/uL (0.0-0.5); #Monocytes 0.3 10x3/uL (0.0-1.1); #Neutrophils 2.5 10x3/uL (1.5-8.4); %Basophils 0.2 % (0.0-2.0); %Eosinophils 1.5 % (0.0-6.0); %Lymphocytes 31.6 % (18.0-47.0); %Monocytes 6.6 % (0.0-10.0); %Neutrophils 59.6 % (40.0-75.0); Hematocrit 26.9 % (34.9-44.5); Hemoglobin 8.2 g/dL (12.0-15.5); Mean Corpuscular HGB CONC 30.5 g/dL (32.0-36.0); Mean Corpuscular Hemoglobin 31.9 pg (27.0-33.0); Mean Corpuscular Volume 104.7 fl (81.6-98.3); Mean Platelet Volume 10.3 fl (7.4-10.4); Platelet Count 202 10x3/uL (150-450); RBC Distribution Width 13.4 % (11.5-14.5); Red Blood Cell (RBC) Count 2.57 10x6/uL (3.90-5.03); White Blood Cell (WBC) Count 4.1 10x3/uL (3.5-10.5)
[2023-12-10] MEDS: Budesonide 0.5 MG/2 ML NEB INH SCH ×2 (06:40→20:30)
[2023-12-10] MEDS: Enoxaparin 40 MG (0.4 mL) SYRINGE SC SCH (08:15)
[2023-12-10] MEDS: Metoprolol Tartrate 25 MG TAB PO SCH ×2 (08:15→20:05)
[2023-12-10] MEDS: diphenhydrAMINE 50 MG/ML VIAL IVP PRN (08:19)
[2023-12-10] MEDS ORDERED: Sodium Phosphate 15 MMOL in Sodium Chloride 0.9% 250 ML 250 ML IVPB SCH (10:00)
[2023-12-10] MEDS: busPIRone HCl 5 MG TAB PO SCH (20:05)
[2023-12-11] MEDS: Ipratropium/Albuterol 3 ML NEB NEB SCH ×4 (01:05→19:14)
[2023-12-11 03:29] LABS: #Eosinphils 0.1 10x3/uL (0.0-0.5); #Monocytes 0.3 10x3/uL (0.0-1.1); #Neutrophils 2.1 10x3/uL (1.5-8.4); %Basophils 0.3 % (0.0-2.0); %Eosinophils 1.6 % (0.0-6.0); %Lymphocytes 34.6 % (18.0-47.0); %Neutrophils 55.2 % (40.0-75.0); Hematocrit 26.2 % (34.9-44.5); Hemoglobin 8.2 g/dL (12.0-15.5); Mean Corpuscular HGB CONC 31.3 g/dL (32.0-36.0); Mean Corpuscular Hemoglobin 32.8 pg (27.0-33.0); Mean Corpuscular Volume 104.8 fl (81.6-98.3); Mean Platelet Volume 10.2 fl (7.4-10.4); Platelet Count 190 10x3/uL (150-450); RBC Distribution Width 13.5 % (11.5-14.5); White Blood Cell (WBC) Count 3.8 10x3/uL (3.5-10.5)
[2023-12-11 03:48] LABS: Anion Gap 13 mmol/L (10-20); BUN (Urea Nitrogen) 12 mg/dL (9.8-20.1); Calc. Creatinine Clearance 71 mL/min (70-130); Calcium 8.7 mg/dL (7.8-10.44); Carbon Dioxide 29 mmol/L (23-31); Chloride 106 mmol/L (98-107); Estimated GFR 95; Glucose 102 mg/dL (83-110); Magnesium 1.6 mg/dL (1.6-2.6); Phosphorus 2.8 mg/dL (2.3-4.7); Potassium 4.6 mmol/L (3.5-5.1); Sodium 143 mmol/L (136-145)
[2023-12-11] MEDS: Acetaminophen 325 MG TAB PO PRN ×2 (05:40→15:23)
[2023-12-11] MEDS: Budesonide 0.5 MG/2 ML NEB INH SCH ×2 (07:30→19:15)
[2023-12-11] MEDS: Sertraline 25 MG TAB PO SCH (07:55)
[2023-12-11] MEDS: Metoprolol Tartrate 25 MG TAB PO SCH (07:55)
[2023-12-11] MEDS: Polyethylene Glycol 3350 17 GM Packet PO SCH (07:56)
[2023-12-11] MEDS: Lactulose 20 GM (30 mL) UDCUP PO SCH (07:56)
[2023-12-11] MEDS: Enoxaparin 40 MG (0.4 mL) SYRINGE SC SCH (07:56)
[2023-12-11] MEDS ORDERED: Cefadroxil Hydrate 250 mg/5 ml Suspensio PO SCH (10:30)
[2023-12-11] MEDS ORDERED: Labetalol HCl 100 MG/20 ML VIAL SLOW IVP PRN (13:15)
[2023-12-11] MEDS ORDERED: Losartan 25 MG TAB PO SCH (14:00)
[2023-12-11] MEDS: Cefadroxil Hydrate 250 mg/5 ml Suspensio PO SCH (20:59)
[2023-12-11] MEDS: busPIRone HCl 5 MG TAB PO SCH (20:59)
[2023-12-12] MEDS: Ipratropium/Albuterol 3 ML NEB NEB SCH ×4 (01:01→17:38)
[2023-12-12] MEDS: diphenhydrAMINE 50 MG/ML VIAL IVP PRN (05:43)
[2023-12-12] MEDS: Budesonide 0.5 MG/2 ML NEB INH SCH ×2 (07:17→17:37)
[2023-12-12] MEDS ORDERED: Losartan 25 MG TAB PO SCH (09:00)
[2023-12-12] MEDS: Polyethylene Glycol 3350 17 GM Packet PO SCH (09:30)
[2023-12-12] MEDS: Sertraline 25 MG TAB PO SCH (09:30)
[2023-12-12] MEDS: Enoxaparin 40 MG (0.4 mL) SYRINGE SC SCH (09:30)
[2023-12-12] MEDS: Cefadroxil Hydrate 250 mg/5 ml Suspensio PO SCH ×2 (09:30→23:07)
[2023-12-12] MEDS: hydrALAZINE 20 MG/ML VIAL SLOW IVP PRN ×2 (17:06→23:07)
[2023-12-12] MEDS ORDERED: Ipratropium/Albuterol 3 ML NEB NEB PRN (17:57)
[2023-12-12] MEDS: Acetaminophen 325 MG TAB PO PRN (21:11)
[2023-12-12] MEDS: busPIRone HCl 5 MG TAB PO SCH (21:11)
[2023-12-12] MEDS: Losartan 25 MG TAB PO SCH (21:11)
[2023-12-13 04:29] LABS: Anion Gap 15 mmol/L (10-20); BUN (Urea Nitrogen) 9 mg/dL (9.8-20.1); Calc. Creatinine Clearance 81 mL/min (70-130); Calcium 9.2 mg/dL (7.8-10.44); Carbon Dioxide 27 mmol/L (23-31); Chloride 101 mmol/L (98-107); Estimated GFR 96; Glucose 128 mg/dL (83-110); Potassium 4.4 mmol/L (3.5-5.1); Sodium 139 mmol/L (136-145)
[2023-12-13 04:35] LABS: #Monocytes 0.2 10x3/uL (0.0-1.1); #Neutrophils 3.3 10x3/uL (1.5-8.4); %Basophils 0.2 % (0.0-2.0); %Eosinophils 0.2 % (0.0-6.0); %Lymphocytes 17.9 % (18.0-47.0); %Monocytes 4.5 % (0.0-10.0); %Neutrophils 76.7 % (40.0-75.0); Hematocrit 28.3 % (34.9-44.5); Hemoglobin 8.7 g/dL (12.0-15.5); Mean Corpuscular HGB CONC 30.7 g/dL (32.0-36.0); Mean Corpuscular Hemoglobin 32.1 pg (27.0-33.0); Mean Corpuscular Volume 104.4 fl (81.6-98.3); Platelet Count 242 10x3/uL (150-450); RBC Distribution Width 13.6 % (11.5-14.5); Red Blood Cell (RBC) Count 2.71 10x6/uL (3.90-5.03); White Blood Cell (WBC) Count 4.2 10x3/uL (3.5-10.5)
[2023-12-13 06:39] VITALS: BMI 24.8
[2023-12-13] MEDS: Budesonide 0.5 MG/2 ML NEB INH SCH ×3 (06:50→19:29)
[2023-12-13] MEDS: Arformoterol 15 MCG/2 ML NEB NEB SCH ×3 (06:50→19:24)
[2023-12-13] MEDS ORDERED: Artificial Tear Sol 15 ML BOT EA EYE PRN (08:48)
[2023-12-13] MEDS ORDERED: Loratadine 10 MG TAB PO PRN (08:48)
[2023-12-13] MEDS ORDERED: Moisturizing Cream (Eucerin) 113 GM JAR TOP PRN (08:48)
[2023-12-13] MEDS ORDERED: Calcium Carbonate 500 MG ChewTAB PO PRN (08:48)
[2023-12-13] MEDS ORDERED: Sodium Chloride 0.65% Nasal 44 ML BOT EA NARE PRN (08:48)
[2023-12-13] MEDS ORDERED: Benzonatate 100 MG CAP PO PRN (08:48)
[2023-12-13] MEDS: Enoxaparin 40 MG (0.4 mL) SYRINGE SC SCH (08:59)
[2023-12-13] MEDS: Lactulose 20 GM (30 mL) UDCUP PO SCH (08:59)
[2023-12-13] MEDS: Polyethylene Glycol 3350 17 GM Packet PO SCH (08:59)
[2023-12-13] MEDS: Losartan 25 MG TAB PO SCH ×2 (08:59→22:14)
[2023-12-13] MEDS: Sertraline 25 MG TAB PO SCH (08:59)
[2023-12-13] MEDS: Acetaminophen 325 MG TAB PO PRN ×2 (09:00→22:12)
[2023-12-13 09:31] LABS: #Monocytes 0.3 10x3/uL (0.0-1.1); #Neutrophils 2.9 10x3/uL (1.5-8.4); %Basophils 0.3 % (0.0-2.0); %Lymphocytes 19.7 % (18.0-47.0); %Monocytes 6.3 % (0.0-10.0); %Neutrophils 73.4 % (40.0-75.0); Hematocrit 27.6 % (34.9-44.5); Hemoglobin 8.7 g/dL (12.0-15.5); Mean Corpuscular HGB CONC 31.5 g/dL (32.0-36.0); Mean Corpuscular Hemoglobin 32.3 pg (27.0-33.0); Mean Corpuscular Volume 102.6 fl (81.6-98.3); Mean Platelet Volume 9.6 fl (7.4-10.4); Platelet Count 238 10x3/uL (150-450); RBC Distribution Width 13.4 % (11.5-14.5); Red Blood Cell (RBC) Count 2.69 10x6/uL (3.90-5.03)
[2023-12-13 09:50] LABS: Phosphorus 3.4 mg/dL (2.3-4.7)
[2023-12-13 09:51] LABS: Anion Gap 16 mmol/L (10-20); BUN (Urea Nitrogen) 9 mg/dL (9.8-20.1); Calc. Creatinine Clearance 86 mL/min (70-130); Calcium 9.4 mg/dL (7.8-10.44); Carbon Dioxide 27 mmol/L (23-31); Chloride 100 mmol/L (98-107); Estimated GFR 98; Glucose 113 mg/dL (83-110); Magnesium 1.5 mg/dL (1.6-2.6); Potassium 4.4 mmol/L (3.5-5.1); Sodium 139 mmol/L (136-145)
[2023-12-13] MEDS ORDERED: Magnesium 2 GM/50 ML(in water) 2 GM in Premix 1 BAG IVPB SCH (14:00)
[2023-12-13] MEDS ORDERED: CEFAZOLIN 1 GM VIAL SLOW IVP SCH (14:00)
[2023-12-13 14:34] LABS: ALT (SGPT) 23 U/L (8-55); AST (SGOT) 20 U/L (5-34); Albumin 3.4 g/dL (3.4-4.8); Alkaline Phosphatase 57 U/L (40-110); Bilirubin, Direct 0.2 mg/dL (0.1-0.3); Bilirubin, Total 0.3 mg/dL (0.2-1.2)
[2023-12-13] MEDS: Ondansetron PF 4 MG/2 ML Vial IVP PRN (15:16)
[2023-12-13 16:22] LABS: SARS-CoV-2 NAA Rapid Test Not Detected (NotDetected)
[2023-12-13] MEDS ORDERED: Lactated Ringer's 1,000 ML IV SCH (17:00)
[2023-12-13] MEDS: CEFAZOLIN 1 GM in Sodium Chloride 0.9% 100 ML IVPB SCH ×2 (17:31→17:32)
[2023-12-13] MEDS ORDERED: Mineral Oil ENEMA PR SCH (20:00)
[2023-12-13] MEDS: busPIRone HCl 5 MG TAB PO SCH (22:13)
[2023-12-14 03:54] LABS: Anion Gap 12 mmol/L (10-20); BUN (Urea Nitrogen) 9 mg/dL (9.8-20.1); Calc. Creatinine Clearance 73 mL/min (70-130); Calcium 8.8 mg/dL (7.8-10.44); Carbon Dioxide 30 mmol/L (23-31); Chloride 100 mmol/L (98-107); Estimated GFR 94; Glucose 86 mg/dL (83-110); Sodium 138 mmol/L (136-145)
[2023-12-14 03:55] LABS: #Monocytes 0.3 10x3/uL (0.0-1.1); #Neutrophils 1.8 10x3/uL (1.5-8.4); %Basophils 0.3 % (0.0-2.0); %Eosinophils 1.2 % (0.0-6.0); %Lymphocytes 37.1 % (18.0-47.0); %Monocytes 9.1 % (0.0-10.0); Hematocrit 25.9 % (34.9-44.5); Hemoglobin 7.9 g/dL (12.0-15.5); Mean Corpuscular HGB CONC 30.5 g/dL (32.0-36.0); Mean Corpuscular Hemoglobin 31.7 pg (27.0-33.0); Mean Platelet Volume 9.6 fl (7.4-10.4); Platelet Count 245 10x3/uL (150-450); RBC Distribution Width 13.9 % (11.5-14.5); Red Blood Cell (RBC) Count 2.49 10x6/uL (3.90-5.03); White Blood Cell (WBC) Count 3.4 10x3/uL (3.5-10.5)
[2023-12-14 03:56] LABS: ALT (SGPT) 18 U/L (8-55); AST (SGOT) 15 U/L (5-34); Albumin 3.1 g/dL (3.4-4.8); Alkaline Phosphatase 51 U/L (40-110); Bilirubin, Direct 0.1 mg/dL (0.1-0.3); Bilirubin, Total 0.3 mg/dL (0.2-1.2); Protein, Total 6.2 g/dL (5.8-8.1)
[2023-12-14] MEDS: CEFAZOLIN 1 GM in Sodium Chloride 0.9% 100 ML IVPB SCH ×3 (04:07→21:16)
[2023-12-14] MEDS: Arformoterol 15 MCG/2 ML NEB NEB SCH ×2 (07:20→19:04)
[2023-12-14] MEDS: Budesonide 0.5 MG/2 ML NEB INH SCH ×2 (07:20→19:03)
[2023-12-14] MEDS: Polyethylene Glycol 3350 17 GM Packet PO SCH (09:39)
[2023-12-14] MEDS: Enoxaparin 40 MG (0.4 mL) SYRINGE SC SCH (09:39)
[2023-12-14] MEDS: Sertraline 25 MG TAB PO SCH (09:39)
[2023-12-14] MEDS: Losartan 25 MG TAB PO SCH ×2 (09:39→21:17)
[2023-12-14] MEDS: Acetaminophen 325 MG TAB PO PRN (09:49)
[2023-12-14] MEDS ORDERED: traMADol HCl 50 MG TAB PO SCH (13:30)
[2023-12-14] MEDS: busPIRone HCl 5 MG TAB PO SCH (21:17)
[2023-12-15] MEDS: CEFAZOLIN 1 GM in Sodium Chloride 0.9% 100 ML IVPB SCH ×3 (03:48→18:18)
[2023-12-15] MEDS: Acetaminophen 325 MG TAB PO PRN ×2 (03:48→18:18)
[2023-12-15 04:42] LABS: #Eosinphils 0.1 10x3/uL (0.0-0.5); #Monocytes 0.4 10x3/uL (0.0-1.1); #Neutrophils 1.6 10x3/uL (1.5-8.4); %Basophils 0.3 % (0.0-2.0); %Eosinophils 1.6 % (0.0-6.0); %Lymphocytes 44.3 % (18.0-47.0); %Neutrophils 43.5 % (40.0-75.0); Hematocrit 28.1 % (34.9-44.5); Hemoglobin 8.5 g/dL (12.0-15.5); Mean Corpuscular HGB CONC 30.2 g/dL (32.0-36.0); Mean Corpuscular Hemoglobin 32.1 pg (27.0-33.0); Mean Platelet Volume 9.8 fl (7.4-10.4); Platelet Count 263 10x3/uL (150-450); RBC Distribution Width 13.7 % (11.5-14.5); Red Blood Cell (RBC) Count 2.65 10x6/uL (3.90-5.03); White Blood Cell (WBC) Count 3.7 10x3/uL (3.5-10.5)
[2023-12-15 04:51] LABS: Anion Gap 13 mmol/L (10-20); BUN (Urea Nitrogen) 9 mg/dL (9.8-20.1); Calc. Creatinine Clearance 71 mL/min (70-130); Calcium 8.7 mg/dL (7.8-10.44); Carbon Dioxide 29 mmol/L (23-31); Chloride 102 mmol/L (98-107); Estimated GFR 93; Glucose 107 mg/dL (83-110); Potassium 4.1 mmol/L (3.5-5.1); Sodium 140 mmol/L (136-145)
[2023-12-15] MEDS: Sertraline 25 MG TAB PO SCH (09:57)
[2023-12-15] MEDS: Enoxaparin 40 MG (0.4 mL) SYRINGE SC SCH (09:57)
[2023-12-15] MEDS: Polyethylene Glycol 3350 17 GM Packet PO SCH ×2 (09:57→10:11)
[2023-12-15] MEDS: Losartan 25 MG TAB PO SCH ×2 (09:57→21:46)
[2023-12-15] MEDS: Budesonide 0.5 MG/2 ML NEB INH SCH ×2 (10:05→19:02)
[2023-12-15] MEDS: Arformoterol 15 MCG/2 ML NEB NEB SCH ×2 (10:05→19:02)
[2023-12-15] MEDS ORDERED: traMADol HCl 50 MG TAB PO SCH (10:15)
[2023-12-15] MEDS ORDERED: diphenhydrAMINE 25 MG CAP PO SCH (21:00)
[2023-12-15] MEDS ORDERED: Melatonin 3 MG TAB PO SCH (21:00)
[2023-12-15] MEDS: busPIRone HCl 5 MG TAB PO SCH (21:46)
[2023-12-16] MEDS: hydrALAZINE 20 MG/ML VIAL SLOW IVP PRN ×2 (00:59→05:10)
[2023-12-16] MEDS: CEFAZOLIN 1 GM in Sodium Chloride 0.9% 100 ML IVPB SCH ×3 (03:36→21:59)
[2023-12-16] MEDS: Acetaminophen 325 MG TAB PO PRN (05:18)
[2023-12-16] MEDS: Ondansetron PF 4 MG/2 ML Vial IVP PRN (07:05)
[2023-12-16] MEDS: Arformoterol 15 MCG/2 ML NEB NEB SCH ×2 (07:30→22:00)
[2023-12-16] MEDS: Budesonide 0.5 MG/2 ML NEB INH SCH ×2 (07:30→22:00)
[2023-12-16] MEDS ORDERED: Lorazepam 0.5 MG TAB PO PRN (09:00)
[2023-12-16] MEDS: Polyethylene Glycol 3350 17 GM Packet PO SCH (09:27)
[2023-12-16] MEDS: Sertraline 25 MG TAB PO SCH (09:28)
[2023-12-16] MEDS: Enoxaparin 40 MG (0.4 mL) SYRINGE SC SCH (09:28)
[2023-12-16] MEDS: Amlodipine 10 MG TAB PO SCH (09:30)
[2023-12-16] MEDS: Losartan 25 MG TAB PO SCH ×2 (09:30→21:54)
[2023-12-16] MEDS: Acetaminophen 500 MG TAB PO SCH ×2 (13:16→21:59)
[2023-12-16] MEDS ORDERED: Mirtazapine 15 MG TAB PO SCH (21:00)
[2023-12-16] MEDS ORDERED: diphenhydrAMINE 25 MG CAP PO SCH (21:00)
[2023-12-16] MEDS ORDERED: Melatonin 3 MG TAB PO SCH (21:00)
[2023-12-16] MEDS: busPIRone HCl 5 MG TAB PO SCH (21:54)
[2023-12-16] MEDS ORDERED: CEFAZOLIN 1 GM VIAL ONE (21:57)
[2023-12-17] MEDS: Acetaminophen 500 MG TAB PO SCH ×4 (00:35→14:19)
[2023-12-17] MEDS: CEFAZOLIN 1 GM in Sodium Chloride 0.9% 100 ML IVPB SCH ×2 (05:37→13:48)
[2023-12-17] MEDS: Budesonide 0.5 MG/2 ML NEB INH SCH (07:08)
[2023-12-17] MEDS: Arformoterol 15 MCG/2 ML NEB NEB SCH (07:10)
[2023-12-17] MEDS ORDERED: Losartan 50 MG TAB PO SCH (12:00)
[2023-12-17] MEDS: Sertraline 25 MG TAB PO SCH ×2 (13:41→14:18)
[2023-12-17] MEDS: Polyethylene Glycol 3350 17 GM Packet PO SCH (13:41)
[2023-12-17] MEDS: Enoxaparin 40 MG (0.4 mL) SYRINGE SC SCH (13:43)
[2023-12-17] MEDS: Amlodipine 10 MG TAB PO SCH ×2 (13:43→14:19)
[2023-12-17] MEDS: Losartan 25 MG TAB PO SCH (13:50)
[2023-12-17 16:22] VITALS: BP 115/55; TEMP 98.6
[2023-12-18] MEDS ORDERED: Losartan 50 MG TAB PO SCH (09:00)
== END 2023-12-17 18:32 | disposition home or self-care (01) | DRG 242 ==
LOC: CSHERS 17:02 → CSHICU 19:18 → CSHTELE 12-12 23:08
PROVIDERS: ADMIT Family Medicine; ATTEND Internal Medicine
PROC: 06HY33Z Insertion of Infusion Device into Lower Vein, Percutaneous Approach (ICD-10-PCS; principal; 2023-12-07)
PROC: 4A033R1 Measurement of Arterial Saturation, Peripheral, Percutaneous Approach (ICD-10-PCS; 2023-12-07)
PROC: 0JH606Z Insertion of Pacemaker, Dual Chamber into Chest Subcutaneous Tissue and Fascia, Open Approach (ICD-10-PCS; 2023-12-08)
PROC: 02H63JZ Insertion of Pacemaker Lead into Right Atrium, Percutaneous Approach (ICD-10-PCS; 2023-12-08)
PROC: 02HK3JZ Insertion of Pacemaker Lead into Right Ventricle, Percutaneous Approach (ICD-10-PCS; 2023-12-08)
DX: I44.2 Atrioventricular block, complete (principal); J96.91 Respiratory failure, unspecified with hypoxia; N39.0 Urinary tract infection, site not specified; E87.5 Hyperkalemia; I95.9 Hypotension, unspecified; Z95.5 Presence of coronary angioplasty implant and graft; Z79.899 Other long term (current) drug therapy; J44.9 Chronic obstructive pulmonary disease, unspecified; E78.5 Hyperlipidemia, unspecified; K21.9 Gastro-esophageal reflux disease without esophagitis; Z98.890 Other specified postprocedural states; Z88.5 Allergy status to narcotic agent; R73.9 Hyperglycemia, unspecified; F03.90 Unspecified dementia, unspecified severity, without behavioral disturbance, psychotic disturbance, mood disturbance, and anxiety; D53.9 Nutritional anemia, unspecified; N18.1 Chronic kidney disease, stage 1; I12.9 Hypertensive chronic kidney disease with stage 1 through stage 4 chronic kidney disease, or unspecified chronic kidney disease; D63.1 Anemia in chronic kidney disease; K59.00 Constipation, unspecified; Z11.52 Encounter for screening for COVID-19
CPT/HCPCS: 0241U; 33208; 36415; 36416; 36556; 36600; 70450; 71045; 74018; 74177; 76705; 80048; 80053; 80076; 82805; 83735; 84100; 84145; 84443; 84484; 85025; 86704; 90935; 93005; 93010; 93306; 94640; 94760; 94762; 96361; 96374; 96375; 99152; 99153; 99292; C1769; C1785; C1898; G0257; J0360; J0461; J0690; J1200; J1580; J1644; J1650; J1815; J2001; J2185; J2250; J2405; J3010; J3475; J3490; J7050; J7120; J7620; J7626; J7999; Q9967

== ENCOUNTER 2024-11-11 20:20 | Emergency (ER) | payer MEDICARE, OTHER ==
[~2024-11-11 20:20] MED LIST changes: +Iopamidol 370 76% 100 ML VIAL ONE; -Rocuronium Bromide 10 MG/ML (10ML VIAL) ONE
[2024-11-11 22:45] LABS: Troponin I Less than 0.010 ng/mL (< 0.028)
[2024-11-11 22:46] LABS: #Eosinophils 0.04 10x3/uL (0.0-0.5); #Monocytes 0.29 10x3/uL (0.0-1.1); #Neutrophils 2.22 10x3/uL (1.5-8.4); %Eosinophils 1.1 % (0.0-6.0); %Lymphocytes 30.2 % (18.0-47.0); %Monocytes 7.9 % (0.0-10.0); %Neutrophils 60.5 % (40.0-75.0); Hematocrit 35.3 % (34.9-44.5); Hemoglobin 10.6 g/dL (12.0-15.5); Mean Corpuscular Hemoglobin 30.6 pg (27.0-33.0); Mean Platelet Volume 9.3 fL (7.4-10.4); Platelet Count 261 10x3/uL (150-450); RBC Distribution Width 14.2 % (11.5-14.5); Red Blood Cell (RBC) Count 3.46 10x6/uL (3.90-5.03); White Blood Cell (WBC) Count 3.7 10x3/uL (3.5-10.5)
[2024-11-11 22:49] LABS: ALT (SGPT) 11 U/L (8-55); AST (SGOT) 16 U/L (5-34); Albumin 3.6 g/dL (3.4-4.8); Alkaline Phosphatase 56 U/L (40-110); Anion Gap 14 mmol/L (10-20); BUN (Urea Nitrogen) 21 mg/dL (9.8-20.1); Bilirubin, Total Less than 0.2 mg/dL (0.2-1.2); Calc. Creatinine Clearance 0 mL/min (70-130); Calcium 9.5 mg/dL (7.8-10.44); Carbon Dioxide 32 mmol/L (23-31); Chloride 100 mmol/L (98-107); Estimated GFR 80; Globulin 3.6 g/dL (2.4-3.5); Glucose 105 mg/dL (83-110); Magnesium 2.2 mg/dL (1.6-2.6); Potassium 5.3 mmol/L (3.5-5.1); Protein, Total 7.2 g/dL (5.8-8.1); Sodium 141 mmol/L (136-145)
[2024-11-12] MEDS ORDERED: methylPREDNISolone Sod Succ 40 MG VIAL ONE (00:47)
[2024-11-12] MEDS ORDERED: Azithromycin 250 MG TAB ONE (01:03)
[2024-11-12] MEDS ORDERED: hydrOXYzine 25 MG TAB ONE (01:21)
[2024-11-12] MEDS ORDERED: Methocarbamol 500 MG TAB ONE (01:21)
== END 2024-11-12 02:09 | disposition home or self-care (01) ==
LOC: CSHERS 20:20
DX: R06.02 Shortness of breath (principal); I10 Essential (primary) hypertension; J44.9 Chronic obstructive pulmonary disease, unspecified
CPT/HCPCS: 36415; 71045; 71275; 80053; 83735; 84484; 85025; 87428; 93005; 93010; 96374; J2919; Q9967

== ENCOUNTER 2025-10-12 19:41 | Emergency (ER) | payer MEDICARE, MEDICAID ==
[2025-10-12 20:34] LABS: #Basophils Less than 0.03 10x3/uL (0.0-0.2); #Eosinophils Less than 0.03 10x3/uL (0.0-0.5); #Monocytes 0.35 10x3/uL (0.0-1.1); #Neutrophils 3.64 10x3/uL (1.5-8.4); %Basophils 0.2 % (0.0-2.0); %Eosinophils 0.0 % (0.0-6.0); %Lymphocytes 11.6 % (18.0-47.0); %Monocytes 7.7 % (0.0-10.0); %Neutrophils 80.1 % (40.0-75.0); Hematocrit 38.1 % (34.9-44.5); Hemoglobin 10.8 g/dL (12.0-15.5); Mean Corpuscular Hemoglobin 32.0 pg (27.0-33.0); Mean Corpuscular Volume 113.1 fL (81.6-98.3); Platelet Count 229 10x3/uL (150-450); Red Blood Cell (RBC) Count 3.37 10x6/uL (3.90-5.03); White Blood Cell (WBC) Count 4.55 10x3/uL (3.5-10.5)
[2025-10-12 20:50] LABS: ALT (SGPT) 16 U/L (Less than 34); AST (SGOT) 22 U/L (11-34); Albumin 4.0 g/dL (3.1-4.5); Alkaline Phosphatase 57 U/L (40-110); BUN (Urea Nitrogen) 22 mg/dL (9.8-20.1); Bilirubin, Total 0.4 mg/dL (0.3-1.2); Calc. Creatinine Clearance 0 mL/min (70-130); Calcium 9.8 mg/dL (7.8-10.44); Globulin 3.4 g/dL (2.4-3.5); Glucose 96 mg/dL (83-110)
[2025-10-12 20:51] LABS: Glucose, Urine (Dipstick) Normal (Negative); Leukocyte Negative (Negative); Protein, Urine (Dipstick) 30 mg/dl (Neg-Trace); Specific Gravity, Urine 1.015 (1.005-1.030)
[2025-10-12 20:54] LABS: Troponin I 0.016 ng/mL (< 0.028)
[2025-10-12 20:55] LABS: Basophilic Stippling SLIGHT = 1-2 cells (100X) (None Seen); MDiff Complete? YES; Macrocytosis MODERATE=16-30 cells (100X) (0-5/hpf); Platelet Adequacy Comment Appears Adequate
[2025-10-12 20:58] LABS: Anion Gap 18 mmol/L (10-20); Carbon Dioxide 40 mmol/L (23-31); Chloride 90 mmol/L (98-107); Potassium 5.4 mmol/L (3.5-5.1); Sodium 143 mmol/L (136-145)
[2025-10-12 21:18] LABS: Bacteria/HPF None Seen HPF (None Seen); CAUTI Indications for Culture Alt mental st,lethar; WBC/HPF 0-3 HPF (0-3)
[2025-10-12 21:19] LABS: Urine Culture Reflex No No
== END 2025-10-12 22:58 | disposition home or self-care (01) ==
LOC: CSHERS 19:41
DX: R41.82 Altered mental status, unspecified (principal); I10 Essential (primary) hypertension; J44.9 Chronic obstructive pulmonary disease, unspecified
CPT/HCPCS: 36415; 51701; 70450; 71045; 80053; 81001; 84484; 85025; 93005